=== PATIENT | female | born 1995 | race African-American/Black ===

== ENCOUNTER 2017-11-22 09:18 | Emergency (ER) | payer OTHER ==
--- NOTE | 2017-11-22 11:13 | ER ---
Nurse's Notes [facility] Name: Monae Mccallum Age: 22 yrs Sex: Female : 1995 Arrival Date: 11/22/2017 Time: 09:21 Bed 18 Private MD: Diagnosis: Influenza due to certain identified influenza viruses-Flu B Presentation: 11/22 09:21 Presenting complaint: Patient states: chest congestion, sneezing, upper abd pain x 1 sv day. Pt currently . Transition of care: patient was not received from another setting of care. Onset of symptoms was November 21, 2017. Care prior to arrival: None. 09:21 Method Of Arrival: Ambulatory sv 09:21 Acuity: EMA 3 sv 11:30 Risk Assessment: Do you want to hurt yourself or someone else? Patient reports no bp desire to harm self or others. Initial Sepsis Screen: Does the patient meet any 2 criteria? No. Patient's initial sepsis screen is negative. Does the patient have a suspected source of infection? No. Patient's initial sepsis screen is negative. 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 - Social history:: Smoking status: Patient/guardian denies using tobacco, Patient/guardian denies using alcohol. - Ebola Screening: : No symptoms or risks identified at this time. Screenin:45 Abuse screen: Denies threats or abuse. Denies injuries from another. Nutritional bp screening: No deficits noted. Tuberculosis screening: No symptoms or risk factors identified. Fall Risk None identified. Assessment: 09:30 General: Appears in no apparent distress. comfortable, Behavior is calm, cooperative, bp appropriate for age. Pain: Complains of pain in abdomen. Neuro: Level of Consciousness is awake, alert, obeys commands, Oriented to person, place, time, situation, Appropriate for age. Cardiovascular: Capillary refill < 3 seconds JVD is absent Patient's skin is warm and dry. Respiratory: Airway is patent Respiratory effort is even, unlabored, Respiratory pattern is regular, symmetrical, Breath sounds are clear bilaterally. GI: No signs and/or symptoms were reported involving the gastrointestinal system. : No signs and/or symptoms were reported regarding the genitourinary system. EENT: Reports nasal congestion. Derm: No deficits noted. Musculoskeletal: Circulation, motion, and sensation intact. Range of motion: intact in all extremities. 10:30 Reassessment: ALL CURRENT ORDERS IN PROCESS, VS STABLE. bp 11:29 Reassessment: PT D/C HOME AMBULATORY, DX WITH INFLUENZA. bp Vital Signs: 09:28 BP 136 / 84; Pulse 98; Resp 18; Temp 96.8; Pulse Ox 100% ; Weight 127.01 kg; Height 5 sv ft. 7 in. (170.18 cm); Pain 6/10; 10:28 BP 112 / 65; Pulse 82; Resp 16; Pulse Ox 97% on R/A; dh3 11:29 BP 116 / 76; Pulse 85; Resp 16; Pulse Ox 98% ; bp 09:28 Body Mass Index 43.85 (127.01 kg, 170.18 cm) sv ED Course: 09:21 Patient arrived in ED. as 09:21 Arm band placed on Patient placed in an exam room, on a stretcher. sv 09:27 Triage completed. sv 09:32 Andre Alcala, CARLEEN is Primary Nurse. bp 09:36 Ronald Rizzo PA is PHCP. jr8 09:36 Dani Jean-Baptiste MD is Attending Physician. jr8 10:31 Flu and/or RSV swab sent to lab. 3 10:45 Patient has correct armband on for positive identification. Bed in low position. Call bp light in reach. Side rails up X2. 11:30 No provider procedures requiring assistance completed. Patient did not have IV access bp during this emergency room visit. Administered Medications: No medications were administered Outcome: 11:12 Discharge ordered by . jr8 11:30 Discharged to home ambulatory. bp 11:30 Condition: stable 11:30 Discharge instructions given to patient, Instructed on discharge instructions, follow up and referral plans. medication usage, Demonstrated understanding of instructions, follow-up care, medications, Prescriptions given X 1. 11:31 Patient left the ED. bp Signatures: Yas Farah RN RN Anjali Rizzo as Ronald Rizzo PA PA [facility] Marcelle Arreola dh3 Cari, Andre, RN RN bp
--- NOTE | 2017-11-22 11:13 | EDPHYS ---
Physician Documentation [facility] Name: Monae Mccallum Age: 22 yrs Sex: Female : 1995 Arrival Date: 11/22/2017 Time: 09:21 Bed 18 Private MD: ED Physician Dani Jean-Baptiste HPI: 11/22 10:48 This 22 yrs old Black Female presents to ER via Ambulatory with complaints of jr8 Congestion. 10:48 2 day history of cough, sore throat, sinus congestion, rhinorrhea, chills. Theraflu jr8 over the counter. Approximately 9 weeks . Denies abdominal pain or spotting . Severity of symptoms: At their worst the symptoms were mild in the emergency department the symptoms are unchanged. The patient has not experienced similar symptoms in the past. The patient has not recently seen a physician. 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 - Social history:: Smoking status: Patient/guardian denies using tobacco, Patient/guardian denies using alcohol. - Ebola Screening: : No symptoms or risks identified at this time. ROS: 10:48 Eyes: Negative for injury, pain, redness, and discharge, Neck: Negative for injury, jr8 pain, and swelling, Cardiovascular: Negative for chest pain, palpitations, and edema, Abdomen/GI: Negative for abdominal pain, nausea, vomiting, diarrhea, and constipation, Back: Negative for injury and pain, MS/Extremity: Negative for injury and deformity, Skin: Negative for injury, rash, and discoloration, Neuro: Negative for headache, weakness, numbness, tingling, and seizure. 10:48 ENT: Positive for rhinorrhea, sinus congestion, sore throat. 10:48 Respiratory: Positive for cough, Negative for dyspnea on exertion, shortness of breath, sputum production, wheezing. Exam: 10:48 Eyes: Pupils equal round and reactive to light, extra-ocular motions intact. Lids and jr8 lashes normal. Conjunctiva and sclera are non-icteric and not injected. Cornea within normal limits. Periorbital areas with no swelling, redness, or edema. ENT: Mild enlargement of the turbinates bilaterally. No nasal discharge, no septal abnormalities noted. Tympanic membranes are normal and external auditory canals are clear. Oropharynx with no redness, swelling, or masses, exudates, or evidence of obstruction, uvula midline. Mucous membranes moist. Neck: Trachea midline, no thyromegaly or masses palpated, and no cervical lymphadenopathy. Supple, full range of motion without nuchal rigidity, or vertebral point tenderness. No Meningismus. Cardiovascular: Regular rate and rhythm with a normal S1 and S2. No gallops, murmurs, or rubs. Normal PMI, no JVD. No pulse deficits. Respiratory: Lungs have equal breath sounds bilaterally, clear to auscultation and percussion. No rales, rhonchi or wheezes noted. No increased work of breathing, no retractions or nasal flaring. Abdomen/GI: Soft, non-tender, with normal bowel sounds. No distension or tympany. No guarding or rebound. No evidence of tenderness throughout. Back: No spinal tenderness. No costovertebral tenderness. Full range of motion. Skin: Warm, dry with normal turgor. Normal color with no rashes, no lesions, and no evidence of cellulitis. MS/ Extremity: Pulses equal, no cyanosis. Neurovascular intact. Full, normal range of motion. Neuro: Awake and alert, GCS 15, oriented to person, place, time, and situation. Cranial nerves II-XII grossly intact. Motor strength 5/5 in all extremities. Sensory grossly intact. Cerebellar exam normal. Normal gait. Vital Signs: 09:28 BP 136 / 84; Pulse 98; Resp 18; Temp 96.8; Pulse Ox 100% ; Weight 127.01 kg; Height 5 sv ft. 7 in. (170.18 cm); Pain 6/10; 10:28 BP 112 / 65; Pulse 82; Resp 16; Pulse Ox 97% on R/A; dh3 11:29 BP 116 / 76; Pulse 85; Resp 16; Pulse Ox 98% ; bp 09:28 Body Mass Index 43.85 (127.01 kg, 170.18 cm) sv MDM: 09:36 Patient medically screened. [facility] 10:50 Data reviewed: vital signs, nurses notes, and as a result, I will discharge patient. jr8 Data interpreted: Pulse oximetry: on room air is 97 %. Interpretation: normal. Counseling: I had a detailed discussion with the patient and/or guardian regarding: the historical points, exam findings, and any diagnostic results supporting the discharge/admit diagnosis, the need for outpatient follow up, a family practitioner, to return to the emergency department if symptoms worsen or persist or if there are any questions or concerns that arise at home. ED course: Discussed with patient that this is allergic vs viral process. No bacterial process identified. Claritin, flonase OTC for now. Tylenol for aches and pains. 11/22 10:15 Order name: Influenza Screen (a \T\ B); Complete Time: 11:11 jr8 Administered Medications: No medications were administered Disposition: 15:31 Co-signature as Attending Physician, Dani Jean-Baptiste MD I agree with the assessment and jarrod plan of care. Disposition: 11/22/17 11:12 Discharged to Home. Impression: Influenza due to certain identified influenza viruses - Flu B. - Condition is Stable. - Discharge Instructions: Influenza, Adult. - Prescriptions for Tamiflu 75 mg Oral Capsule - take 1 capsule by ORAL route every 12 hours for 5 days; 10 capsule. - Medication Reconciliation Form, Thank You Letter, Antibiotic Education, Prescription Opioid Use, Work release form form. - Follow up: Private Physician; When: 2 - 3 days; Reason: Recheck today's complaints, Continuance of care, Re-evaluation by your physician. - Problem is new. - Symptoms have improved. Signatures: Dispatcher [employer] Yas Prakash RN RN sv Anderson, Corey, MD MD cha Roszak, Josh, PA PA jr8 Andre Alcala RN RN bp Corrections: (The following items were deleted from the chart) 11:31 11:12 11/22/2017 11:12 Discharged to Home. Impression: Influenza due to certain bp identified influenza viruses - Flu B. Condition is Stable. Forms are Medication Reconciliation Form, Thank You Letter, Antibiotic Education, Prescription Opioid Use. Follow up: Private Physician; When: 2 - 3 days; Reason: Recheck today's complaints, Continuance of care, Re-evaluation by your physician. Problem is new. Symptoms have improved. jr8
[2017-11-23 14:36] VITALS: BP 116/76; TEMP 96.8; O2SAT 98
== END 2017-11-22 11:31 | disposition home or self-care (01) ==
LOC: ER 09:18
DX: J10.1 Influenza due to other identified influenza virus with other respiratory manifestations (principal); O16.1 Unspecified maternal hypertension, first trimester; Z3A.09 9 weeks gestation of pregnancy
CPT/HCPCS: 87804; 99283

== ENCOUNTER 2018-08-07 07:44 | Emergency (ER) | payer OTHER ==
--- OUTSIDE RECORDS SUMMARY | 2018-08-07 07:47 | XMS REPORT ---
:1995 Author Organization [facility] Address [address] [place] [address] [address] [place] [address] Care Team Providers Name Role Phone Unavailable Unavailable Unavailable Problems This patient has no known problems. Allergies, Adverse Reactions, Alerts This patient has no known allergies or adverse reactions. Medications This patient has no known medications.
[2018-08-07 08:29] LABS: Absolute Lymphocytes (CBC) 1.8 K/uL (0.7-4.9); Basophils % 0.5 % (0-1.3); Eosinophils % 1.8 % (0-4.4); Hematocrit 36.4 % (36.0-45.0); Lymphocytes % 32.5 % (15.3-44.8); Monocytes % 8.5 % (3.3-12.3); RBC Red Blood Cell Count 4.84 M/uL (3.86-4.86)
[2018-08-07 08:37] LABS: BUN Blood Urea Nitrogen 8 mg/dL (7-18); Bicarbonate 29 mmol/L (21-32); Glucose Level 95 mg/dL (74-106); HCG, Quantitative 699 mIU/mL (1-3); Potassium 4.2 mmol/L (3.5-5.1); Sodium Level 138 mmol/L (136-145)
[2018-08-07 08:53] LABS: Urine Blood NEGATIVE (NEG); Urine Glucose NEGATIVE (NEG); Urine Protein NEGATIVE (NEG); Urine Specific Gravity 1.015 (1.005-1.030); Urine pH 6.5 (5.0-7.0)
--- NOTE | 2018-08-07 09:25 | ER ---
Nurse's Notes [facility] Name: Monae Mccallum Age: 23 yrs Sex: Female : 1995 Arrival Date: 08/07/2018 Time: 07:47 Bed 20 Private MD: Diagnosis: Threatened Presentation: 08/07 07:58 Presenting complaint: Patient states: that since this am she has been having lower fc pelvic cramping. States that she noted blood on the paper when she wiped. Pt states she is 5 weeks . Transition of care: patient was not received from another setting of care. Onset of symptoms was August 07, 2018. Risk Assessment: Do you want to hurt yourself or someone else? Patient reports no desire to harm self or others. Initial Sepsis Screen: Does the patient meet any 2 criteria? No. Patient's initial sepsis screen is negative. Does the patient have a suspected source of infection? No. Patient's initial sepsis screen is negative. Care prior to arrival: None. 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 - Social history:: Smoking status: Patient/guardian denies using tobacco, Patient/guardian denies using alcohol, street drugs. - Ebola Screening: : Patient negative for fever greater than or equal to 101.5 degrees Fahrenheit, and additional compatible Ebola Virus Disease symptoms Patient denies exposure to infectious person Patient denies travel to an Ebola-affected area in the 21 days before illness onset. Screenin:58 Abuse screen: Denies threats or abuse. Nutritional screening: No deficits noted. fc Tuberculosis screening: No symptoms or risk factors identified. Fall Risk None identified. Assessment: 07:55 General: Appears in no apparent distress. comfortable, Behavior is calm, cooperative, rb1 Denies fever. Pain: Complains of pain in suprapubic area Quality of pain is described as crampy. Neuro: Level of Consciousness is awake, alert, obeys commands, Oriented to person, place, time, situation. Cardiovascular: Capillary refill < 3 seconds is brisk in bilateral fingers. Respiratory: Airway is patent Respiratory effort is even, unlabored, Respiratory pattern is regular, symmetrical. GI: No signs and/or symptoms were reported involving the gastrointestinal system. : Parent/caregiver report the patient having cramping pink colored spotting. Derm: Skin is dry, Skin is normal, Skin temperature is warm. 09:05 Reassessment: ultrasound at bedside. em 09:28 Reassessment: pending RhoGAM from blood bank. em 10:38 Reassessment: Patient appears in no apparent distress at this time. Patient and/or em family updated on plan of care and expected duration. Pain level reassessed. Patient is alert, oriented x 3, equal unlabored respirations, skin warm/dry/pink. Vital Signs: 07:58 BP 148 / 90; Pulse 79; Resp 18; Temp 97.8(O); Pulse Ox 98% on R/A; Weight 132.9 kg (R); fc Height 5 ft. 7 in. (170.18 cm) (R); Pain 6/10; 09:25 BP 138 / 87; Pulse 81; Resp 20; Pulse Ox 99% on R/A; em 07:58 Body Mass Index 45.89 (132.90 kg, 170.18 cm) ED Course: 07:47 Patient arrived in ED. as 07:48 [facility]ara Irizarry [facility]-C [facility]. kb 07:48 Jaspreet Monet MD is Attending Physician. kb 07:55 Pulse ox on. NIBP on. rb1 07:58 Arm band placed on Patient placed in an exam room, on a stretcher. fc 07:58 Patient has correct armband on for positive identification. Bed in low position. Call light in reach. 08:09 Triage completed. fc 08:12 Malena Hess, RN is Primary Nurse. rb1 08:13 Initial lab(s) drawn, by ak, sent to lab. Inserted saline lock: 20 gauge in right ms antecubital area, using aseptic technique. Blood collected. 08:30 Urine collected: clean catch specimen, clear. ms 09:17 Ultrasound completed. Patient tolerated well. Notified BELT SPLICER/PA tara. sg3 09:48 Transvaginal Ob In Process Unspecified. EDMS 10:37 No provider procedures requiring assistance completed. IV discontinued, intact, em bleeding controlled, No redness/swelling at site. Pressure dressing applied. Administered Medications: 10:24 Drug: RhoGAM (Human) 300 mcg {Note: Pt requested medication be given in deltoid.} Route: IM; Site: right deltoid; 10:39 Follow up: Response: No adverse reaction em Outcome: :25 Discharge ordered by . kb 10:37 Discharged to home ambulatory. em 10:37 Condition: good 10:37 Discharge instructions given to patient, Instructed on discharge instructions, follow up and referral plans. Demonstrated understanding of instructions, follow-up care. 10:39 Patient left the ED. em Signatures: Dispatcher [employer] EDMS Tara Irizarry, INSIGHT LEADER-C INSIGHT LEADER-Ckb Lluvia Maier RN RN Fred Henderson, BUILDING CONSTRUCTION SUPERVISOR BUILDING CONSTRUCTION SUPERVISOR em Anjali Rizzo Maria ms Smirch, Shelby, RN RN Malena Hess RN RN [facility] Francie Eaton sg3
--- NOTE | 2018-08-07 09:25 | EDPHYS ---
Physician Documentation [facility] Name: Monae Mccallum Age: 23 yrs Sex: Female : 1995 Arrival Date: 08/07/2018 Time: 07:47 Bed 20 Private MD: ED Physician Jaspreet Monet HPI: 08/07 08:50 This 23 yrs old Black Female presents to ER via Ambulatory with complaints of Vaginal kb Bleeding, + Preg <12wks. 08:50 The patient presents to the emergency department with abdominal pain, of the suprapubic kb area, described as crampy, vaginal bleeding, described as spotting. The estimated gestational age is 5 weeks. course: care: at a clinic, Leakage of Fluid: none appreciated, Ultrasound: the patient has not had an ultrasound, Risk/complications: no obvious risks or complications are appreciated. Previous pregnancies: in previous pregnancies patient has had. Associated signs and symptoms: Pertinent positives: abdominal pain, vaginal bleeding, Pertinent negatives: chest pain, diarrhea, dysuria, fever, frequency, nausea, ruptured membranes, seizure, shortness of breath, vaginal discharge, vomiting. The patient has not experienced similar symptoms in the past. The patient has not recently seen a physician. Pt reports abd cramping and vaginal spotting that started this morning. States bleeding only when she wiped after using the restroom. 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 - Social history:: Smoking status: Patient/guardian denies using tobacco, Patient/guardian denies using alcohol, street drugs. - Ebola Screening: : Patient negative for fever greater than or equal to 101.5 degrees Fahrenheit, and additional compatible Ebola Virus Disease symptoms Patient denies exposure to infectious person Patient denies travel to an Ebola-affected area in the 21 days before illness onset. ROS: 08:49 Constitutional: Negative for fever, chills, and weight loss, ENT: Negative for injury, kb pain, and discharge, Neck: Negative for injury, pain, and swelling, Cardiovascular: Negative for chest pain, palpitations, and edema, Respiratory: Negative for shortness of breath, cough, wheezing, and pleuritic chest pain, Back: Negative for injury and pain, MS/Extremity: Negative for injury and deformity, Skin: Negative for injury, rash, and discoloration, Neuro: Negative for headache, weakness, numbness, tingling, and seizure. 08:49 Abdomen/GI: Positive for abdominal cramps, Negative for abdominal pain, nausea, vomiting, and diarrhea. 08:49 : Positive for vaginal bleeding. Exam: 08:49 Constitutional: This is a well developed, well nourished patient who is awake, alert, kb and in no acute distress. Head/Face: Normocephalic, atraumatic. Chest/axilla: Normal chest wall appearance and motion. Nontender with no deformity. No lesions are appreciated. Cardiovascular: Regular rate and rhythm with a normal S1 and S2. No gallops, murmurs, or rubs. Normal PMI, no JVD. No pulse deficits. Respiratory: Lungs have equal breath sounds bilaterally, clear to auscultation and percussion. No rales, rhonchi or wheezes noted. No increased work of breathing, no retractions or nasal flaring. Abdomen/GI: Soft, non-tender, with normal bowel sounds. No distension or tympany. No guarding or rebound. No evidence of tenderness throughout. Back: No spinal tenderness. No costovertebral tenderness. Full range of motion. Skin: Warm, dry with normal turgor. Normal color with no rashes, no lesions, and no evidence of cellulitis. MS/ Extremity: Pulses equal, no cyanosis. Neurovascular intact. Full, normal range of motion. Neuro: Awake and alert, GCS 15, oriented to person, place, time, and situation. Cranial nerves II-XII grossly intact. Motor strength 5/5 in all extremities. Sensory grossly intact. Cerebellar exam normal. Normal gait. Vital Signs: 07:58 BP 148 / 90; Pulse 79; Resp 18; Temp 97.8(O); Pulse Ox 98% on R/A; Weight 132.9 kg (R); fc Height 5 ft. 7 in. (170.18 cm) (R); Pain 6/10; 09:25 BP 138 / 87; Pulse 81; Resp 20; Pulse Ox 99% on R/A; em 07:58 Body Mass Index 45.89 (132.90 kg, 170.18 cm) fc MDM: 07:57 Patient medically screened. kb 08:49 Data reviewed: vital signs, nurses notes. Data interpreted: Pulse oximetry: on room air kb is 98 %. Interpretation: normal. 09:24 Counseling: I had a detailed discussion with the patient and/or guardian regarding: the kb historical points, exam findings, and any diagnostic results supporting the discharge/admit diagnosis, lab results, radiology results, the need for outpatient follow up, an OB/Gyne specialist, to return to the emergency department if symptoms worsen or persist or if there are any questions or concerns that arise at home. 08/07 07:57 Order name: Quantitative Hcg 08/07 07:57 Order name: Abo/rh Typing 08/07 07:57 Order name: Basic Metabolic Panel; Complete Time: 08:38 kb 08/07 07:57 Order name: CBC with Diff; Complete Time: 08:53 kb 08/07 07:58 Order name: HCG, Quantitative; Complete Time: 08:38 EDOH 08/07 08:26 Order name: Urine Microscopic Only; Complete Time: 10:17 eb 08/07 08:30 Order name: Urine Dipstick--Ancillary (enter results); Complete Time: 08:57 eb 08/07 08:30 Order name: Urine --Ancillary (enter results); Complete Time: 08:57 eb 08/07 08:39 Order name: US Transvaginal Ob 08/07 09:08 Order name: Rh Typing [facility] 08/07 09:09 Order name: Antibody Screen [facility] 08/07 09:09 Order name: Fetalscreen [facility] 08/07 09:09 Order name: Cord Rh type [facility] 08/07 09:09 Order name: Rhogam [facility] 08/07 07:57 Order name: Urine Test (obtain specimen); Complete Time: 08:29 kb 08/07 07:57 Order name: IV Saline Lock; Complete Time: 08:13 kb 08/07 07:57 Order name: Labs collected and sent; Complete Time: 08:13 kb 08/07 07:57 Order name: NPO; Complete Time: 08:04 kb 08/07 07:57 Order name: Urine Dipstick-Ancillary (obtain specimen); Complete Time: 08:29 kb Administered Medications: 10:24 Drug: RhoGAM (Human) 300 mcg {Note: Pt requested medication be given in deltoid.} ss Route: IM; Site: right deltoid; 10:39 Follow up: Response: No adverse reaction em Disposition: 11:10 Co-signature as Attending Physician, Jaspreet Monet MD. rn Disposition: 08/07/18 09:25 Discharged to Home. Impression: Threatened . - Condition is Stable. - Discharge Instructions: Threatened Miscarriage, [id number]. - Medication Reconciliation Form, Thank You Letter, Antibiotic Education, Prescription Opioid Use form. - Follow up: Emergency Department; When: As needed; Reason: Worsening of condition. Follow up: Private Physician; When: 2 - 3 days; Reason: Recheck today's complaints, Continuance of care, Re-evaluation by your physician. - Notes: Have repeat quantitative hcg in 48 hours Signatures: Dispatcher [employer] EDTara Acosta, FE CARDIOVASCULAR SURGICAL TECH-Lluvia Bhagat, RN RN fc Fred Henderson, METAL BOX MAKER METAL BOX MAKER Jaspreet Mayo MD MD rn Smirch, Shelby, RN RN ss Corrections: (The following items were deleted from the chart) 10:39 09:25 08/07/2018 09:25 Discharged to Home. Impression: Threatened . Condition em is Stable. Forms are Medication Reconciliation Form, Thank You Letter, Antibiotic Education, Prescription Opioid Use. Follow up: Emergency Department; When: As needed; Reason: Worsening of condition. Follow up: Private Physician; When: 2 - 3 days; Reason: Recheck today's complaints, Continuance of care, Re-evaluation by your physician. kb
[2018-08-07 10:15] LABS: Urine Bacteria <20 /HPF (<20); Urine Culture Reflex Order NOT NEEDED; Urine RBC NONE SEEN /HPF (NONE SEEN)
--- NOTE | 2018-08-07 11:41 | RAD REPORT ---
EXAM DESCRIPTION: US - Transvaginal OB - 08/07/2018 9:48 am CLINICAL HISTORY: Abd cramping, ;Vaginal bleeding COMPARISON: <Comparisons> FINDINGS: No IUP is identified. There is a trace amount of fluid in the fundal endometrium. Endometr ial thickness measures 8 mm. The uterus measures 8.3 x 5.1 x 4.5 cm. The maternal adnexa and ovaries are within normal limits. Normal Doppler blood flow was demonstrated to both ovaries. IMPRESSION: No IUP findings are seen. In the setting of an elevated HCG, this would indicate pregnan cy of unknown location. Close interval followup pelvic sonography and serial HCG levels is recommende dMatt
== END 2018-08-07 10:39 | disposition home or self-care (01) ==
LOC: ER 07:44
DX: O20.0 Threatened abortion (principal); Z3A.01 Less than 8 weeks gestation of pregnancy; I10 Essential (primary) hypertension
CPT/HCPCS: 36415; 76817; 80048; 81003; 81015; 81025; 84702; 85025; 86850; 86900; 86901; 96372; 99284; J2790

== ENCOUNTER 2021-06-17 08:30 | Emergency (ER) | payer OTHER ==
--- OUTSIDE RECORDS SUMMARY | 2021-06-17 08:35 | XMS REPORT | Continuity of Care Document ---
:1995 Author Organization [facility] t Address [address] [place] [address] Care Team Providers Name Role Phone Keke STILES Primary Care Physician Unavailable Keke STILES Attending Clinician Unavailable Sayda DURANT Attending Clinician Unavailable Brayden RICH Attending Clinician Unknown Attending Clinician Unavailable BRAYDEN Attending Clinician Unavailable Only, Db Test Attending Clinician Unavailable Go MARRUFO, R Attending Clinician Frank Peña DO Attending Clinician Visit, Nurse Attending Clinician Unavailable Emerson MORALES, C Attending Clinician Keyur RICH Attending Clinician Risk Attending Clinician Unavailable Enid MORALES, L Attending Clinician Doctor Unassigned, Name Attending Clinician Unavailable Matthew DURANT, S Attending Clinician Unavailable Tong MOSQUEDAP, N Attending Clinician Faculty, [facility] Attending Clinician Unavailable Winter Toth MD Attending Clinician Keyur RICH Admitting Clinician Payers Payer Name Policy Type Policy Number Effective Date Expiration Date [facility] [id number] [address] [facility] MEDICAID 00:00:00 Problems Condition Condition Condition Status Onset Resolution Last Treating Co mments Source Name Details Category Date Date Treatment Clinician Date Encounter Encounter Disease Active NPI :183 for for 618 [id number] surveillan surveillan 00:00: ce of ce of 00 contracept contracept william, william, unspecifie unspecifie d d contracept contracept dina dina Elevated Elevated Disease Active NPI:1 83 blood blood 18 [id number] pressure pressure 00:00: reading reading 00 without without diagnosis diagnosis of of hypertensi hypertensi on on Class 3 Class 3 Disease Active NPI:183 severe severe 07-26 1886658 obesity obesity 00:00: with body with body 00 mass index mass index (BMI) of (BMI) of 40.0 to 40.0 to 44.9 in 44.9 in adult, adult, unspecifie unspecifie d obesity d obesity type, type, unspecifie unspecifie d whether d whether serious serious comorbidit comorbidit y present y present Disease Active N PI:183 care and care and 04-13 752022 1 examinatio examinatio 00:00: n n 00 immediatel immediatel y after y after delivery delivery 37 weeks 37 weeks Disease Active NPI:1 83 gestation gestation 2- 1318 781 of of 00:00: 00 Bacterial Bacterial Disease Active NPI :183 vaginosis vaginosis 2 1318 781 in in 00:00: 00 Group B Group B Disease Active NPI:183 streptococ streptococ [phone] [id number] luis manuel luis manuel 00:00: infection infection 00 during during History of History of Disease Active N PI:183 bilateral bilateral 02-15 1318 781 tubal tubal 00:00: ligation ligation 00 Spotting Spotting Disease Active NPI:1 83 affecting affecting 02-15 1318 781 00:00: in third in third 00 trimester trimester Multiparit Multiparit Disease Active N PI:183 y y 02-13 6236192 00:00: 00 H/O heart H/O heart Disease Active 2018-02 NPI :183 surgery surgery 15 0916148 00:00: 00 Need for Need for Disease Active 2018-02 NPI:1 83 prophylact prophylact 1-15 13 69058 ic ic 00:00: vaccinatio vaccinatio 00 n against n against rubella rubella alone alone BMI BMI Disease Active 2018-02 NPI:183 40.0-44.9, 40.0-44.9, 02-22 13 26651 adult adult 00:00: 00 Gastroesop Gastroesop Disease Active 2018-02 N PI:183 hageal hageal 02-22 2382993 reflux reflux 00:00: disease disease 00 without without esophagiti esophagiti s s History of History of Disease Active 2018-02 N PI:183 repair of repair of 02-22 1318 781 congenital congenital 00:00: atrial atrial 00 septal septal defect defect (ASD) (ASD) Chlamydia Chlamydia Disease Active 2018-02 NPI :183 0-14 3214299 00:00: 00 Supervisio Supervisio Disease Active N PI:183 n of high n of high 08-03 1318 781 risk risk 00:00: 00 in third in third trimester trimester Three Three Disease Active NPI:183 previous previous 08-03 281548 1 spontaneou spontaneou 00:00: s s 00 abortions abortions (SAB) (SAB) affecting affecting care of care of mother, mother, antepartum antepartum , first , first trimester trimester History of History of Disease Active N PI:183 gestationa gestationa 08-03 13 88334 l l 00:00: hypertensi hypertensi 00 on on Multiparit Multiparit Disease Active N PI:183 y y 08-03 9987921 00:00: 00 History of History of Disease Active N PI:183 hypothyroi hypothyroi 08-03 13 31482 dism dism 00:00: 00 Pelvic Pelvic Disease Active NPI:183 cramping cramping 08-03 674267 1 in in 00:00: antepartum antepartum 00 period period Rubella Rubella Disease Active 2017-02 Overview: NPI: 183 non-immune non-immune 0-03 Formattin 7855548 status, status, 00:00: g of this antepartum antepartum 00 note might be different from the original. Address in PP Cramping Cramping Disease Active 2017-02 NPI:1 83 affecting affecting 1318 781 , , 00:00: antepartum antepartum 00 Morbid Morbid Disease Active NPI:183 obesity obesity 06-26 8050555 00:00: 00 Well woman Well woman Disease Active N PI:183 exam (no exam (no 06-26 688292 1 gynecologi gynecologi 00:00: luis manuel exam) luis manuel exam) 00 Sickle Sickle Disease Active NPI:183 cell trait cell trait 2-18 13 63325 00:00: 00 Rh Rh Disease Active Overview: NPI:18 3 negative negative 10-10 Formattin 131 8781 status status 00:00: g of this during during 00 note might be in first in first different trimester trimester from the original. 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 Currently , no med. No sx's, except intermitt ent chest pain. No orthopnea nor dysopnea Pre-eclamp Pre-eclamp Disease Active N PI:183 ben ben 10-08 5684350 00:00: 00 Allergies, Adverse Reactions, Alerts Allergy Allergy Status Severity Reaction(s) Onset Inactive Treating Comm ents Source Name Type Date Date Clinician NO KNOWN Drug Active NPI:183 ALLERGIE Class 8219266 S Social History Social Habit Start Date Stop Date Quantity Comments Source ASSERTION 2018-07-21 00:00:00 Exposure to Not sure NPI:[id number] 1 SARS-CoV-2 (event) Alcohol intake 2021-01-07 2021-01-07 0 /d NPI:[id number] 3447 00:00:00 00:00:00 Education 2019-03-16 2019-03-16 21 00:00:00 00:00:00 Tobacco use and 2014-03-13 2014-03-13 Never used NPI:91164 44284 exposure 00:00:00 00:00:00 [birth year] At [birth year] NPI:72944 89237 00:00:00 00:00:00 Smoking Status Start Date Stop Date Source Never smoker Medications Ordered Filled Start Stop Current Ordering Indication Dosage Frequency Signature Comments Components Source Medication Medication Date Date Medication? Clinician (SIG) Name Name albuterol 2020-02- No [id number] 2{puff} NPI:183 (VENTOLIN) 03-09 [id number] inhaler 2 22:15: 21:05 Puff 00 :00 albuterol 2020-02- No [id number] 2{puff} 2 Puff, NPI:183 (VENTOLIN) 03-09 Inhalation 13 54009 inhaler 2 22:15: 21:05 , ONCE, 1 Puff 00 :00 dose, On Wed01/07/21 at 1615, Routine benzonatate 2020-02 Yes [id number] 200mg Take 2 NPI:183 100 mg 1-30 capsules [id number] capsule 00:00: by mouth 2 00 (two) times daily as needed for Cough. bromphenira 2020-02 Yes [id number] 5mL Take 5 mL NPI:183 mine-pseudo 30 by mouth 4 13 29404 ephedrine-D 00:00: (four) M (BROMFED 00 times DM) 2-30-10 daily as mg/5 mL needed for syrup Congestion /Allergies . azelastine 2020-02 Yes [id number] 1{spray Use 1 NPI:183 137 mcg 1-30 } [place] in 3817559 (0.1 %) 00:00: each nasal spray 00 nostril 2 (two) times daily. Use in each nostril as directed guaiFENesin 2020-02 Yes [id number] 400mg Take 1 NPI:183 400 mg 1-30 tablet by [id number] tablet 00:00: mouth 00 every 4 (four) hours as needed for Cough. albuterol 2020-02 Yes [id number] 2{puff} Inhale 2 NPI:183 90 1-30 Puffs [id number] mcg/actuati 00:00: every 6 on inhaler 00 (six) hours as needed for Wheezing or Shortness of Breath. benzonatate 2020-02 Yes [id number] 200mg Take 2 NPI:183 100 mg 1-30 capsules [id number] capsule 00:00: by mouth 2 00 (two) times daily as needed for Cough. bromphenira 2020-02 Yes [id number] 5mL Take 5 mL NPI:183 mine-pseudo 1-30 by mouth 4 13 12705 ephedrine-D 00:00: (four) M (BROMFED 00 times DM) 2-30-10 daily as mg/5 mL needed for syrup Congestion /Allergies . azelastine 2020-02 Yes [id number] 1{spray Use 1 NPI:183 137 mcg 1-30 } [place] in 2053277 (0.1 %) 00:00: each nasal spray 00 nostril 2 (two) times daily. Use in each nostril as directed guaiFENesin 2020-02 Yes [id number] 400mg Take 1 NPI:183 400 mg 1-30 tablet by 7558630 tablet 00:00: mouth 00 every 4 (four) hours as needed for Cough. albuterol 2020-02 Yes [id number] 2{puff} Inhale 2 NPI:183 90 1-30 Puffs [id number] mcg/actuati 00:00: every 6 on inhaler 00 (six) hours as needed for Wheezing or Shortness of Breath. No known No NPI:183 medications 7-21 [id number] 08:36: 57 cephALEXin 0 2020- No [id number] 500mg Take 1 NPI:183 (KEFLEX) 2-21 03-03 capsule by 1318 781 500 mg 00:00: 05:59 mouth 4 capsule 00 :00 (four) times daily for 10 days. ascorbic Yes 500mg 500 mg, NPI:1 83 acid 2-16 Oral, [id number] (vitamin C) 15:00: DAILY, (VITAMIN C) 00 First dose tablet 500 on Sun mg 03/26/19 at 0900, Until Discontinu ed, Routine foLIC acid 2020-0 Yes 1mg 1 mg, NPI:18 3 (FOLATE) 2-16 Oral, [id number] tablet 1 mg 15:00: DAILY, 00 First dose on 03/26/19 at 0900, Until Discontinu ed, Routine ascorbic 2020-0 Yes [id number] 500mg Take 1 N PI:183 acid, 2-16 tablet by 8831182 vitamin C, 00:00: mouth 500 mg 00 daily. tablet foLIC acid 2020-0 Yes [id number] 1mg Take 1 NPI:183 1 mg tablet 2-16 tablet by 131 8781 00:00: mouth 00 daily. ascorbic 2020-0 Yes [id number] 500mg Take 1 N PI:183 acid, 2-16 tablet by 3551123 vitamin C, 00:00: mouth 500 mg 00 daily. tablet foLIC acid 2020-0 Yes [id number] 1mg Take 1 NPI:183 1 mg tablet 2-16 tablet by 131 8781 00:00: mouth 00 daily. ascorbic 2020-0 Yes [id number] 500mg Take 1 N PI:183 acid, 2-16 tablet by 2383299 vitamin C, 00:00: mouth 500 mg 00 daily. tablet foLIC acid 2020-0 Yes [id number] 1mg Take 1 NPI:183 1 mg tablet 2-16 tablet by 131 8781 00:00: mouth 00 daily. ascorbic 2020-0 Yes [id number] 500mg Take 1 N PI:183 acid, 2-16 tablet by 7122885 vitamin C, 00:00: mouth 500 mg 00 daily. tablet foLIC acid 2020-0 Yes [id number] 1mg Take 1 NPI:183 1 mg tablet 2-16 tablet by 131 8781 00:00: mouth 00 daily. ascorbic 2020-0 2020- No [id number] 500mg Take 1 NPI:183 acid, 2-16 06-18 tablet by [id number] vitamin C, 00:00: 00:00 mouth 500 mg 00 :00 daily. tablet foLIC acid 2020-0 2020- No [id number] 1mg Take 1 NPI:183 1 mg tablet 2-16 06-18 tablet by 13 08228 00:00: 00:00 mouth 00 :00 daily. ascorbic 2020-0 2020- No [id number] 500mg Take 1 NPI:183 acid, 2-16 -18 tablet by 0934884 vitamin C, 00:00: 00:00 mouth 500 mg 00 :00 daily. tablet foLIC acid 2019-0 2020- No [id number] 1mg Take 1 NPI:183 1 mg tablet 2-16 -18 tablet by 13 30793 00:00: 00:00 mouth 00 :00 daily. ferrous 2020-0 Yes 324mg 324 mg, NPI:18 3 gluconate 2-15 Oral, TID 80485 81 tablet 324 18:00: MEALS, mg 00 First dose on 03/25/19 at 1200, Until Discontinu ed, Routine lactated 2019-0 2020- No 500mL at 999 NPI:1 83 ringers IV 2-15 02-15 mL/hr, 500 13 77173 infusion 14:45: 13:45 mL, 500 mL 00 :00 Intravenou s, ONCE, 1 dose, 03/25/19 at 0845, Routine 2020-0 Yes [id number] 1{tbl} Take 1 NPI:183 vitamin 2-15 tablet by 8857192 w/FA tablet 00:00: mouth 00 daily. docusate 2020-0 Yes [id number] 240mg Take 1 N PI:183 calcium 240 2-15 capsule by 13 25039 mg capsule 00:00: mouth once 00 daily as needed for Constipati on. ibuprofen 2020-0 Yes [id number] 600mg Take 1 NPI:183 600 mg 2-15 tablet by [id number] tablet 00:00: mouth 00 every 6 (six) hours as needed (Pain). Take with food or milk. ferrous 2020-0 Yes [id number] 325mg Take 1 ETIOLOGIST I:183 sulfate 325 2-15 tablet by 131 8781 mg (65 mg 00:00: mouth 2 iron) 00 (two) tablet times daily. ibuprofen 2020-0 Yes 600mg 600 mg, NPI: 183 (IBU) 2-15 Oral, Q6H, [id number] tablet 600 00:00: First dose mg 00 on 03/24/19 at 1800, Until Discontinu ed, Routine 2020-0 Yes [id number] 1{tbl} Take 1 NPI:183 vitamin 2-15 tablet by 7985114 w/FA tablet 00:00: mouth 00 daily. docusate 2020-0 Yes [id number] 240mg Take 1 N PI:183 calcium 240 2-15 capsule by 13 88040 mg capsule 00:00: mouth once 00 daily as needed for Constipati on. ibuprofen 2020-0 Yes [id number] 600mg Take 1 NPI:183 600 mg 2-15 tablet by 5857719 tablet 00:00: mouth 00 every 6 (six) hours as needed (Pain). Take with food or milk. ferrous 2020-0 Yes [id number] 325mg Take 1 ETIOLOGIST I:183 sulfate 325 2-15 tablet by 131 8781 mg (65 mg 00:00: mouth 2 iron) 00 (two) tablet times daily. 2020-0 Yes [id number] 1{tbl} Take 1 NPI:183 vitamin 2-15 tablet by 2195798 w/FA tablet 00:00: mouth 00 daily. docusate 2020-0 Yes [id number] 240mg Take 1 N PI:183 calcium 240 2-15 capsule by 13 77274 mg capsule 00:00: mouth once 00 daily as needed for Constipati on. ibuprofen 2020-0 Yes [id number] 600mg Take 1 NPI:183 600 mg 2-15 tablet by 4387709 tablet 00:00: mouth 00 every 6 (six) hours as needed (Pain). Take with food or milk. ferrous 2020-0 Yes [id number] 325mg Take 1 ETIOLOGIST I:183 sulfate 325 2-15 tablet by 131 8781 mg (65 mg 00:00: mouth 2 iron) 00 (two) tablet times daily. 2020-0 Yes [id number] 1{tbl} Take 1 NPI:183 vitamin 2-15 tablet by 3778793 w/FA tablet 00:00: mouth 00 daily. docusate 2020-0 Yes [id number] 240mg Take 1 N PI:183 calcium 240 2-15 capsule by 13 19485 mg capsule 00:00: mouth once 00 daily as needed for Constipati on. ibuprofen 2020-0 Yes [id number] 600mg Take 1 NPI:183 600 mg 2-15 tablet by 0394048 tablet 00:00: mouth 00 every 6 (six) hours as needed (Pain). Take with food or milk. ferrous 2020-0 Yes [id number] 325mg Take 1 ETIOLOGIST I:183 sulfate 325 2-15 tablet by 131 8781 mg (65 mg 00:00: mouth 2 iron) 00 (two) tablet times daily. 2020-0 2020- No [id number] 1{tbl} Take 1 NPI:183 vitamin 2-15 06-18 tablet by 616453 1 w/FA tablet 00:00: 00:00 mouth 00 :00 daily. docusate 2019- No [id number] 240mg Take 1 NPI:183 calcium 240 2-15 06-18 capsule by 1 981822 mg capsule 00:00: 00:00 mouth once 00 :00 daily as needed for Constipati on. ibuprofen 2019- No [id number] 600mg Take 1 NPI:183 600 mg 2-15 06-18 tablet by 3809546 tablet 00:00: 00:00 mouth 00 :00 every 6 (six) hours as needed (Pain). Take with food or milk. ferrous 2019- No [id number] 325mg Take 1 N PI:183 sulfate 325 2-15 -18 tablet by 13 92882 mg (65 mg 00:00: 00:00 mouth 2 iron) 00 :00 (two) tablet times daily. 2019- No [id number] 1{tbl} Take 1 NPI:183 vitamin 2-15 06-18 tablet by 801177 1 w/FA tablet 00:00: 00:00 mouth 00 :00 daily. docusate 2019- No [id number] 240mg Take 1 NPI:183 calcium 240 2-15 06-18 capsule by 1 849381 mg capsule 00:00: 00:00 mouth once 00 :00 daily as needed for Constipati on. ibuprofen 2019- No [id number] 600mg Take 1 NPI:183 600 mg 2-15 06-18 tablet by 3570075 tablet 00:00: 00:00 mouth 00 :00 every 6 (six) hours as needed (Pain). Take with food or milk. ferrous 2019- No [id number] 325mg Take 1 N PI:183 sulfate 325 2-15 -18 tablet by 13 17313 mg (65 mg 00:00: 00:00 mouth 2 iron) 00 :00 (two) tablet times daily. HYDROcodone 2019- No [id number] 1{tbl} Take 1 NPI:183 -acetaminop 2-15 02-23 tablet by 13 95045 hen 5-325 00:00: 05:59 mouth mg tablet 00 :00 every 6 (six) hours as needed (Pain scale above 4) for up to 7 days. Do not exceed 3 grams of acetaminop hen in 24 hours. HYDROcodone 2020-0 2020- No [id number] 1{tbl} Take 1 NPI:183 -acetaminop 2-15 04-02 tablet by 13 59956 hen 5-325 00:00: 05:59 mouth mg tablet 00 :00 every 6 (six) hours as needed (Pain scale above 4) for up to 7 days. Do not exceed 3 grams of acetaminop hen in 24 hours. ferrous 2020-0 2020- No [id number] 325mg Take 1 N PI:183 sulfate 325 2-15 - tablet by 13 46420 mg (65 mg 00:00: 00:00 mouth 2 iron) 00 :00 (two) tablet times daily. human 2020-0 Yes .5mL 0.5 mL, NPI:183 papillomav 2-14 Intramuscu 131 8781 vac,9-vanessa(P 22:36: lar, F) 16 ONCE-PRIOR (GARDASIL-9 TO ) syringe DISCHARGE, 0.5 mL 1 dose, Starting Wed03/24/19 at 1636, Until Discontinu ed, Routine, Give vaccine prior to discharge HYDROcodone 2020-0 Yes 2{tbl} 2 tablet, NPI:183 -acetaminop 2-14 Oral, [id number] hen (NORCO 22:36: Q6HPRN, 5) 5-325 mg 16 Starting tablet 2 Fri tablet 03/24/19 at 1636, Until Discontinu ed, Routine, Pain (scale 7-10) HYDROcodone 2020-0 Yes 1{tbl} 1 tablet, NPI:183 -acetaminop 2-14 Oral, [id number] hen (NORCO 22:36: Q6HPRN, 5) 5-325 mg 16 Starting tablet 1 Fri tablet 03/24/19 at 1636, Until Discontinu ed, Routine, Pain (scale 4-6) diphenhydrA 2020-0 Yes 25mg 25 mg, IV N PI:183 MINE-0.9 % 2-14 Piggyback, 131 8781 sod.chlr 22:36: Administer (BENADRYL) 16 over 30 25 mg/50 mL Minutes, piggyback Q6HPRN, 1 25 mg dose, Starting Wed03/24/19 at 1636, Until Discontinu ed, Routine, Itching diphenhydrA 2020-0 Yes 25mg 25 mg, NPI: 183 MINE 2-14 Oral, [id number] (BENADRYL) 22:36: Q6HPRN, tablet 25 16 Starting mg 03/24/19 at 1636, Until Discontinu ed, Routine, Sleep, Itching ondansetron 2020-0 Yes 4mg 4 mg, Slow NPI:183 (ZOFRAN 2-14 IV Push, [id number] (PF)) 22:36: Q8HPRN, injection 4 16 Starting mg 03/24/19 at 1636, Until Discontinu ed, Routine, Nausea and Vomiting (N/V) simethicone 2020-0 Yes 160mg 160 mg, ETIOLOGIST I:183 (GAS RELIEF 2-14 Oral, [id number] (SIMETHICON 22:36: PC+HSPRN, E)) 16 Starting chewable Fri tablet 160 03/24/19 at mg 1636, Until Discontinu ed, Routine, Gas docusate 2020-0 Yes 240mg 240 mg, NPI:1 83 calcium 2-14 Oral, [id number] (SURFAK) 22:36: QDAILYPRN, capsule 240 16 Starting mg 03/24/19 at 1636, Until Discontinu ed, Routine, Constipati on magnesium 2020-0 Yes 30mL 30 mL, NPI:18 3 hydroxide 2-14 Oral, [id number] (MILK OF 22:36: QDAILYPRN, MAGNESIA) 16 Starting 400 mg/5 mL Fri suspension 03/24/19 at 30 mL 1636, Until Discontinu ed, Routine, Constipati on bisacodyL 2020-0 Yes 10mg 10 mg, NPI:18 3 (DULCOLAX) 2-14 Rectal, [id number] 1 suppository 22:36: QDAILYPRN, 10 mg 15 Starting 03/24/19 at 1636, Until Discontinu ed, Routine, Constipati on rho(D) 2020-0 Yes 300ug 300 mcg, NPI:18 3 immune 2-14 Intramuscu [id number] globulin 20:53: lar, ONCE, (RHOGAM) 46 For 1 syringe 300 dose, mcg Conditiona l, Routine HYDROcodone 2020-0 Yes 1{tbl} 1 tablet, NPI:183 -acetaminop 2-14 Oral, [id number] hen (NORCO 20:48: Q6HPRN, 5) 5-325 mg 39 Starting tablet 1 Wed tablet 03/24/19 at 1448, Until Discontinu ed, Routine, Pain (scale 4-6), PACU ketorolac 2020-0 Yes 30mg 30 mg, NPI:18 3 (TORADOL) 2-14 Slow IV [id number] injection 20:48: Push, 30 mg 39 Q6HPRN, 4 doses, Starting 03/24/19 at 1448, Until Discontinu ed, Routine, Pain (scale 1-3), [facility] : ABHISHEK DOVER naloxone 2020-0 Yes .2mg 0.2 mg, NPI:18 3 (NARCAN) 2-14 Intramuscu [id number] injection 20:48: lar, 0.2 mg 39 Q3HPRN, Starting 03/24/19 at 1448, Until Discontinu ed, Routine, Itching, PACU sodium 2019-0 2020- No 30mL 30 mL, NPI:183 citrate-cit -24 03- Oral, [id number] 1 venus acid 16:33: 18:15 PRE-PROCED (BICITRA) 48 :00 URE ONCE, 500-334 1 dose, mg/5 mL Starting solution 30 Fri mL 03/24/19 at 1033, Until Discontinu ed, Routine, Surgery ceFAZolin 2019-0 2020- No 2000mg 2 g (2,000 NPI:183 in dextrose 03-24-14 mg), IV 1310 781 (iso-os) 16:33: 18:17 Piggyback, (ANCEF) 2 48 :00 O.R. gram/100 mL HOLDING Piggyback 2 ONCE, 1 g dose, Starting 03/24/19 at 1033, Until Discontinu ed, 100 mL
Reas on for Anti-Infec tive: Surgical Prophylaxi s
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
Duration of therapy: within 24 hours of surgery LR 1000 mL 2020-0 2020- No 2mU/min 2 NPI :183 + oxytocin 03-24-14 willie-unit 13 95067 20 units IV 09:50: 20:48 s/min (6 Solution 37 :30 mL/hr), at 6 mL/hr, IV Infusion, TITRATE, Starting Wed03/24/19 at 0350, Until Wed03/24/19 at 1448, STELLA, Oxytocin induction. lactated 2020-0 2020- No 500mL at 999 NPI:1 83 ringers IV 03-23 mL/hr, 500 13 59098 infusion 23:45: 22:42 mL, IV 500 mL 00 :00 Infusion, ONCE, 1 dose, Cindy 03/23/19 at 1745, Routine proMETHazin 2020-0 2020- No 25mg 25 mg, IV NPI:183 e 03-23 Piggyback, [id number] (PHENERGAN) 19:15: 19:25 ONCE, 1 25 mg in 00 :00 dose, Cindy NaCl 0.9% 03/23/19 at (NS) 50 mL 1315, IV Routine piggyback nalbuphine 2019-0 2020- No 10mg 10 mg, NPI: 183 (NUBAIN) 03-23 Intravenou [id number] 781 injection 19:15: 18:22 s, ONCE, 1 10 mg 00 :00 dose, Cindy 03/23/19 at 1315, Routine proMETHazin 2019-0 2020- No 25mg 25 mg, IV NPI:183 e 03-23 Piggyback, [id number] (PHENERGAN) 13:15: 14:31 ONCE, 1 25 mg in 00 :00 dose, Cindy NaCl 0.9% 03/23/19 at (NS) 50 mL 0715, IV Routine piggyback nalbuphine 2019-0 2020- No 10mg 10 mg, NPI: 183 (NUBAIN) 03-23 Intravenou 1318 781 injection 13:15: 12:15 s, ONCE, 1 10 mg 00 :00 dose, Cindy 03/23/19 at 0715, Routine D5W-LR IV 2019-0 2020- No 1000mL at 125 NPI :183 infusion 03-2314 mL/hr, [place] [address] 81 1,000 mL 12:15: 20:49 Infusion, 00 :27 CONTINUOUS , Starting Cindy 03/23/19 at 0615, Until Wed03/24/19 at 1449, Routine sodium 2019- No 30mL 30 mL, NPI:183 citrate-cit 03-23 Oral, [id number] 1 venus acid 12:05: 22:46 PRE-PROCED (BICITRA) 47 :00 URE ONCE, 500-334 1 dose, mg/5 mL Starting solution 30 Cindy mL 03/23/19 at 0605, Until Discontinu ed, Routine, Surgery/Pr ocedure acetaminoph No 650mg 650 mg, N PI:183 en 03-22 Oral, [id number] (TYLENOL) 23:00: 22:07 ONCE, 1 tablet 650 00 :00 dose, Wed mg 03/22/19 at 1700, Routine butalbital- 2019- No 2{tbl} 2 tablet, NPI:183 acetaminoph 03-20 Oral, [id number] 1 en-caff 02:15: 01:21 ONCE, 1 (ESGIC) 00 :00 dose, Sun 50-325-40 03/19/19 at mg tablet 2 2014, tablet Routine metroNIDAZO No 500mg 500 mg, N PI:183 LE (FLAGYL) 03-17 02-14 Oral, BID, 1 130410 tablet 500 14:00: 01:56 14 doses, mg 00 :00 First dose on Wed03/17/19 at 0800, Last dose on Cindy 03/23/19 at 2000, Routine
Reason for Anti-Infec tive: Empiric Therapy for Suspected Infection< br>Empiric Therapy Site: Pelvic
Duration of therapy: 7 days acetaminoph No 650mg 650 mg, N PI:183 en 03-17- Oral, ONCE [id number] (TYLENOL) 03:30: 02:16 NOW, 1 tablet 650 00 :00 dose, Cindy mg 03/16/19 at 2130, Routine lactated 2019- No 1000mL at 999 NPI: 183 ringers IV 03-17-07 mL/hr, [id number] 1 infusion 03:00: 02:00 1,000 mL, 1,000 mL 00 :00 Intravenou s, ONCE, 1 dose, Cindy 03/16/19 at 2100, Routine ferrous 2018- Yes [id number] 325mg Take 1 NPI :183 sulfate 325 2-23 tablet by 131 8781 mg (65 mg 00:00: mouth 2 iron) 00 (two) tablet times daily. ferrous 2018-02 Yes [id number] 325mg Take 1 NPI :183 sulfate 325 2-23 tablet by 131 8781 mg (65 mg 00:00: mouth 2 iron) 00 (two) tablet times daily. ferrous 2018-02 Yes [id number] 325mg Take 1 NPI :183 sulfate 325 2-23 tablet by 131 8781 mg (65 mg 00:00: mouth 2 iron) 00 (two) tablet times daily. ferrous 2018-02 Yes [id number] 325mg Take 1 NPI :183 sulfate 325 2-23 tablet by 131 8781 mg (65 mg 00:00: mouth 2 iron) 00 (two) tablet times daily. ferrous 2018-02 Yes [id number] 325mg Take 1 NPI :183 sulfate 325 2-23 tablet by 131 8781 mg (65 mg 00:00: mouth 2 iron) 00 (two) tablet times daily. ferrous 2018-02 Yes [id number] 325mg Take 1 NPI :183 sulfate 325 2-23 tablet by 131 8781 mg (65 mg 00:00: mouth 2 iron) 00 (two) tablet times daily. ferrous 2018-02 Yes [id number] 325mg Take 1 NPI :183 sulfate 325 2-23 tablet by 131 8781 mg (65 mg 00:00: mouth 2 iron) 00 (two) tablet times daily. ferrous 2018-02 Yes [id number] 325mg Take 1 NPI :183 sulfate 325 2-23 tablet by 131 8781 mg (65 mg 00:00: mouth 2 iron) 00 (two) tablet times daily. ferrous 2018-02 Yes [id number] 325mg Take 1 NPI :183 sulfate 325 2-23 tablet by 131 8781 mg (65 mg 00:00: mouth 2 iron) 00 (two) tablet times daily. ferrous 2018- Yes [id number] 325mg Take 1 NPI :183 sulfate 325 2-23 tablet by 131 8781 mg (65 mg 00:00: mouth 2 iron) 00 (two) tablet times daily. ferrous 2018- Yes [id number] 325mg Take 1 NPI :183 sulfate 325 2-23 tablet by 131 8781 mg (65 mg 00:00: mouth 2 iron) 00 (two) tablet times daily. ferrous 2018-02 Yes [id number] 325mg Take 1 NPI :183 sulfate 325 2-23 tablet by [id number] mg (65 mg 00:00: mouth 2 iron) 00 (two) tablet times daily. ferrous 2018-02- No [id number] 325mg Take 1 ETIOLOGIST I:183 sulfate 325 2-23 06-18 tablet by [id number] mg (65 mg 00:00: 00:00 mouth 2 iron) 00 :00 (two) tablet times daily. ferrous 2018-02- No [id number] 325mg Take 1 ETIOLOGIST I:183 sulfate 325 2-23 -18 tablet by 13 [id number] mg (65 mg 00:00: 00:00 mouth 2 iron) 00 :00 (two) tablet times daily. pantoprazol 2018-02 Yes [id number] 20mg Take 1 NPI:183 e 0-14 tablet by [id number] (PROTONIX) 00:00: mouth 20 mg EC 00 daily. tablet pantoprazol 2018-02 Yes [id number] 20mg Take 1 NPI:183 e 0-14 tablet by [id number] (PROTONIX) 00:00: mouth 20 mg EC 00 daily. tablet pantoprazol 2018-02 Yes [id number] 20mg Take 1 NPI:183 e 0-14 tablet by [id number] (PROTONIX) 00:00: mouth 20 mg EC 00 daily. tablet pantoprazol 2018-02 Yes [id number] 20mg Take 1 NPI:183 e 0-14 tablet by [id number] (PROTONIX) 00:00: mouth 20 mg EC 00 daily. tablet pantoprazol 2018-02 Yes [id number] 20mg Take 1 NPI:183 e 0-14 tablet by [id number] (PROTONIX) 00:00: mouth 20 mg EC 00 daily. tablet pantoprazol 2018-02 Yes [id number] 20mg Take 1 NPI:183 e 0-14 tablet by [id number] (PROTONIX) 00:00: mouth 20 mg EC 00 daily. tablet pantoprazol 2018-02 Yes [id number] 20mg Take 1 NPI:183 e 0-14 tablet by [id number] (PROTONIX) 00:00: mouth 20 mg EC 00 daily. tablet pantoprazol 2018-02 Yes [id number] 20mg Take 1 NPI:183 e 0-14 tablet by [id number] (PROTONIX) 00:00: mouth 20 mg EC 00 daily. tablet pantoprazol 2018-02 Yes [id number] 20mg Take 1 NPI:183 e 0-14 tablet by [id number] (PROTONIX) 00:00: mouth 20 mg EC 00 daily. tablet pantoprazol 2018-02 Yes [id number] 20mg Take 1 NPI:183 e 0-14 tablet by [id number] (PROTONIX) 00:00: mouth 20 mg EC 00 daily. tablet pantoprazol 2018-02 Yes [id number] 20mg Take 1 NPI:183 e 0-14 tablet by [id number] (PROTONIX) 00:00: mouth 20 mg EC 00 daily. tablet pantoprazol 2018-02 Yes [id number] 20mg Take 1 NPI:183 e 0-14 tablet by [id number] (PROTONIX) 00:00: mouth 20 mg EC 00 daily. tablet pantoprazol 2018-02- No [id number] 20mg Take 1 NPI:183 e 0-14 06-18 tablet by [id number] (PROTONIX) 00:00: 00:00 mouth 20 mg EC 00 :00 daily. tablet pantoprazol 2018-02- No [id number] 20mg Take 1 NPI:183 e 0-14 06-18 tablet by [id number] (PROTONIX) 00:00: 00:00 mouth 20 mg EC 00 :00 daily. tablet proMETHazin Yes [id number] 25mg Take 1 NPI:183 e 25 mg 7-23 tablet by [id number] tablet 00:00: mouth 00 every 4 (four) hours as needed for Nausea and Vomiting (N/V). proMETHazin Yes [id number] 25mg Take 1 NPI:183 e 25 mg 7-23 tablet by [id number] tablet 00:00: mouth 00 every 4 (four) hours as needed for Nausea and Vomiting (N/V). proMETHazin Yes [id number] 25mg Take 1 NPI:183 e 25 mg 7-23 tablet by [id number] tablet 00:00: mouth 00 every 4 (four) hours as needed for Nausea and Vomiting (N/V). proMETHazin Yes [id number] 25mg Take 1 NPI:183 e 25 mg 7-23 tablet by [id number] tablet 00:00: mouth 00 every 4 (four) hours as needed for Nausea and Vomiting (N/V). proMETHazin Yes [id number] 25mg Take 1 NPI:183 e 25 mg 7-23 tablet by [id number] tablet 00:00: mouth 00 every 4 (four) hours as needed for Nausea and Vomiting (N/V). proMETHazin 0 Yes [id number] 25mg Take 1 NPI:183 e 25 mg 7-23 tablet by [id number] tablet 00:00: mouth 00 every 4 (four) hours as needed for Nausea and Vomiting (N/V). proMETHazin Yes [id number] 25mg Take 1 NPI:183 e 25 mg 7-23 tablet by [id number] tablet 00:00: mouth 00 every 4 (four) hours as needed for Nausea and Vomiting (N/V). proMETHazin 0 Yes [id number] 25mg Take 1 NPI:183 e 25 mg 7-23 tablet by [id number] tablet 00:00: mouth 00 every 4 (four) hours as needed for Nausea and Vomiting (N/V). proMETHazin Yes [id number] 25mg Take 1 NPI:183 e 25 mg 7-23 tablet by [id number] tablet 00:00: mouth 00 every 4 (four) hours as needed for Nausea and Vomiting (N/V). proMETHazin Yes [id number] 25mg Take 1 NPI:183 e 25 mg 7-23 tablet by [id number] tablet 00:00: mouth 00 every 4 (four) hours as needed for Nausea and Vomiting (N/V). proMETHazin Yes [id number] 25mg Take 1 NPI:183 e 25 mg 7-23 tablet by [id number] tablet 00:00: mouth 00 every 4 (four) hours as needed for Nausea and Vomiting (N/V). proMETHazin Yes [id number] 25mg Take 1 NPI:183 e 25 mg 7-23 tablet by [id number] tablet 00:00: mouth 00 every 4 (four) hours as needed for Nausea and Vomiting (N/V). proMETHazin 0 Yes [id number] 25mg Take 1 NPI:183 e 25 mg 7-23 tablet by [id number] tablet 00:00: mouth 00 every 4 (four) hours as needed for Nausea and Vomiting (N/V). proMETHazin 2019-0 Yes [id number] 25mg Take 1 NPI:183 e 25 mg 7-23 tablet by [id number] tablet 00:00: mouth 00 every 4 (four) hours as needed for Nausea and Vomiting (N/V). proMETHazin Yes [id number] 25mg Take 1 NPI:183 e 25 mg 7-23 tablet by [id number] tablet 00:00: mouth 00 every 4 (four) hours as needed for Nausea and Vomiting (N/V). proMETHazin Yes [id number] 25mg Take 1 NPI:183 e 25 mg 7-23 tablet by [id number] tablet 00:00: mouth 00 every 4 (four) hours as needed for Nausea and Vomiting (N/V). proMETHazin Yes [id number] 25mg Take 1 NPI:183 e 25 mg 7-23 tablet by [id number] tablet 00:00: mouth 00 every 4 (four) hours as needed for Nausea and Vomiting (N/V). proMETHazin 2020- No [id number] 25mg Take 1 NPI:183 e 25 mg 7-23 02-15 tablet by [id number] tablet 00:00: 00:00 mouth 00 :00 every 4 (four) hours as needed for Nausea and Vomiting (N/V). Yes [id number] 1{packe Take 1 NPI:183 vit 6-26 t} Packet by [id number] 33-iron-fol 00:00: mouth ic-dha 00 daily. (SELECT-OB + DHA) 29 mg iron-1 mg -250 mg combo pack CITRANATAL Yes 1{tbl} Take 1 NPI :183 90 DHA, 6-26 tablet by [id number] ALGAL OIL, 00:00: mouth 90 mg 00 daily. iron-1 mg -50 mg-300 mg combo pack 0 Yes [id number] 1{packe Take 1 NPI:183 vit 6-26 t} Packet by [id number] 33-iron-fol 00:00: mouth ic-dha 00 daily. (SELECT-OB + DHA) 29 mg iron-1 mg -250 mg combo pack CITRANATAL Yes 1{tbl} Take 1 NPI :183 90 DHA, 6-26 tablet by [id number] ALGAL OIL, 00:00: mouth 90 mg 00 daily. iron-1 mg -50 mg-300 mg combo pack Yes [id number] 1{packe Take 1 NPI:183 vit 6-26 t} Packet by [id number] 33-iron-fol 00:00: mouth ic-dha 00 daily. (SELECT-OB + DHA) 29 mg iron-1 mg -250 mg combo pack CITRANATAL Yes 1{tbl} Take 1 NPI :183 90 DHA, 6-26 tablet by [id number] ALGAL OIL, 00:00: mouth 90 mg 00 daily. iron-1 mg -50 mg-300 mg combo pack Yes [id number] 1{packe Take 1 NPI:183 vit 6-26 t} Packet by [id number] 33-iron-fol 00:00: mouth ic-dha 00 daily. (SELECT-OB + DHA) 29 mg iron-1 mg -250 mg combo pack CITRANATAL Yes 1{tbl} Take 1 NPI :183 90 DHA, 6-26 tablet by [id number] ALGAL OIL, 00:00: mouth 90 mg 00 daily. iron-1 mg -50 mg-300 mg combo pack Yes [id number] 1{packe Take 1 NPI:183 vit 6-26 t} Packet by [id number] 33-iron-fol 00:00: mouth ic-dha 00 daily. (SELECT-OB + DHA) 29 mg iron-1 mg -250 mg combo pack CITRANATAL Yes 1{tbl} Take 1 NPI :183 90 DHA, 6-26 tablet by [id number] ALGAL OIL, 00:00: mouth 90 mg 00 daily. iron-1 mg -50 mg-300 mg combo pack Yes [id number] 1{packe Take 1 NPI:183 vit 6-26 t} Packet by [id number] 33-iron-fol 00:00: mouth ic-dha 00 daily. (SELECT-OB + DHA) 29 mg iron-1 mg -250 mg combo pack CITRANATAL Yes 1{tbl} Take 1 NPI :183 90 DHA, 6-26 tablet by [id number] ALGAL OIL, 00:00: mouth 90 mg 00 daily. iron-1 mg -50 mg-300 mg combo pack Yes [id number] 1{packe Take 1 NPI:183 vit 6-26 t} Packet by [id number] 33-iron-fol 00:00: mouth ic-dha 00 daily. (SELECT-OB + DHA) 29 mg iron-1 mg -250 mg combo pack CITRANATAL Yes 1{tbl} Take 1 NPI :183 90 DHA, 6-26 tablet by [id number] ALGAL OIL, 00:00: mouth 90 mg 00 daily. iron-1 mg -50 mg-300 mg combo pack Yes [id number] 1{packe Take 1 NPI:183 vit 6-26 t} Packet by [id number] 33-iron-fol 00:00: mouth ic-dha 00 daily. (SELECT-OB + DHA) 29 mg iron-1 mg -250 mg combo pack CITRANATAL Yes 1{tbl} Take 1 NPI :183 90 DHA, 6-26 tablet by [id number] ALGAL OIL, 00:00: mouth 90 mg 00 daily. iron-1 mg -50 mg-300 mg combo pack Yes [id number] 1{packe Take 1 NPI:183 vit 6-26 t} Packet by [id number] 33-iron-fol 00:00: mouth ic-dha 00 daily. (SELECT-OB + DHA) 29 mg iron-1 mg -250 mg combo pack CITRANATAL Yes 1{tbl} Take 1 NPI :183 90 DHA, 6-26 tablet by [id number] ALGAL OIL, 00:00: mouth 90 mg 00 daily. iron-1 mg -50 mg-300 mg combo pack Yes [id number] 1{packe Take 1 NPI:183 vit 6-26 t} Packet by [id number] 33-iron-fol 00:00: mouth ic-dha 00 daily. (SELECT-OB + DHA) 29 mg iron-1 mg -250 mg combo pack CITRANATAL Yes 1{tbl} Take 1 NPI :183 90 DHA, 6-26 tablet by [id number] ALGAL OIL, 00:00: mouth 90 mg 00 daily. iron-1 mg -50 mg-300 mg combo pack Yes [id number] 1{packe Take 1 NPI:183 vit 6-26 t} Packet by [id number] 33-iron-fol 00:00: mouth ic-dha 00 daily. (SELECT-OB + DHA) 29 mg iron-1 mg -250 mg combo pack CITRANATAL Yes 1{tbl} Take 1 NPI :183 90 DHA, 6-26 tablet by [id number] ALGAL OIL, 00:00: mouth 90 mg 00 daily. iron-1 mg -50 mg-300 mg combo pack Yes [id number] 1{packe Take 1 NPI:183 vit 6-26 t} Packet by [id number] 33-iron-fol 00:00: mouth ic-dha 00 daily. (SELECT-OB + DHA) 29 mg iron-1 mg -250 mg combo pack CITRANATAL Yes 1{tbl} Take 1 NPI :183 90 DHA, 6-26 tablet by [id number] ALGAL OIL, 00:00: mouth 90 mg 00 daily. iron-1 mg -50 mg-300 mg combo pack Yes [id number] 1{packe Take 1 NPI:183 vit 6-26 t} Packet by [id number] 33-iron-fol 00:00: mouth ic-dha 00 daily. (SELECT-OB + DHA) 29 mg iron-1 mg -250 mg combo pack CITRANATAL Yes 1{tbl} Take 1 NPI :183 90 DHA, 6-26 tablet by [id number] ALGAL OIL, 00:00: mouth 90 mg 00 daily. iron-1 mg -50 mg-300 mg combo pack Yes [id number] 1{packe Take 1 NPI:183 vit 6-26 t} Packet by [id number] 33-iron-fol 00:00: mouth ic-dha 00 daily. (SELECT-OB + DHA) 29 mg iron-1 mg -250 mg combo pack CITRANATAL Yes 1{tbl} Take 1 NPI :183 90 DHA, 6-26 tablet by [id number] ALGAL OIL, 00:00: mouth 90 mg 00 daily. iron-1 mg -50 mg-300 mg combo pack Yes [id number] 1{packe Take 1 NPI:183 vit 6-26 t} Packet by [id number] 33-iron-fol 00:00: mouth ic-dha 00 daily. (SELECT-OB + DHA) 29 mg iron-1 mg -250 mg combo pack CITRANATAL Yes 1{tbl} Take 1 NPI :183 90 DHA, 6-26 tablet by [id number] ALGAL OIL, 00:00: mouth 90 mg 00 daily. iron-1 mg -50 mg-300 mg combo pack Yes [id number] 1{packe Take 1 NPI:183 vit 6-26 t} Packet by [id number] 33-iron-fol 00:00: mouth ic-dha 00 daily. (SELECT-OB + DHA) 29 mg iron-1 mg -250 mg combo pack CITRANATAL Yes 1{tbl} Take 1 NPI :183 90 DHA, 6-26 tablet by [id number] ALGAL OIL, 00:00: mouth 90 mg 00 daily. iron-1 mg -50 mg-300 mg combo pack Yes [id number] 1{packe Take 1 NPI:183 vit 6-26 t} Packet by [id number] 33-iron-fol 00:00: mouth ic-dha 00 daily. (SELECT-OB + DHA) 29 mg iron-1 mg -250 mg combo pack CITRANATAL Yes 1{tbl} Take 1 NPI :183 90 DHA, 6-26 tablet by [id number] ALGAL OIL, 00:00: mouth 90 mg 00 daily. iron-1 mg -50 mg-300 mg combo pack 2020- No [id number] 1{packe Take 1 NPI:183 vit 6-26 02-15 t} Packet by [id number] 33-iron-fol 00:00: 00:00 mouth ic-dha 00 :00 daily. (SELECT-OB + DHA) 29 mg iron-1 mg -250 mg combo pack CITRANATAL 2020- No 1{tbl} Take 1 ETIOLOGIST I:183 90 DHA, 6-26 02-15 tablet by [id number] ALGAL OIL, 00:00: 00:00 mouth 90 mg 00 :00 daily. iron-1 mg -50 mg-300 mg combo pack No known No NPI:183 medications [id number] No known No NPI:183 medications [id number] No known No NPI:183 medications [id number] No known No NPI:183 medications [id number] No known No NPI:183 medications [id number] Immunizations Ordered Immunization Filled Immunization Date Status Commen ts Source Name Name Rho (d) Immune 2019-03-25 Completed NPI:[id number] 0441 Globulin 00:00:00 Rho (d) Immune 2019-03-25 Completed NPI:[id number] 4894 Globulin 00:00:00 Rho (d) Immune 2019-03-25 Completed NPI:[id number] 0707 Globulin 00:00:00 Rho (d) Immune 2019-03-25 Completed NPI:[id number] 7429 Globulin 00:00:00 Rho (d) Immune 2019-03-25 Completed NPI:[id number] 5583 Globulin 00:00:00 Rho (d) Immune 2019-03-25 Completed NPI:[id number] 3336 Globulin 00:00:00 Rho (d) Immune 2019-03-25 Completed NPI:[id number] 0285 Globulin 00:00:00 Rho (d) Immune 2019-03-25 Completed NPI:[id number] 7066 Globulin 00:00:00 Rho (d) Immune 2019-03-25 Completed NPI:[id number] 2546 Globulin 00:00:00 Rho (d) Immune 2019-03-25 Completed NPI:[id number] 0505 Globulin 00:00:00 Rho (d) Immune 2019-03-25 Completed NPI:[id number] 3671 Globulin 00:00:00 Rho (d) Immune 2019-03-25 Completed NPI:[id number] 3341 Globulin 00:00:00 Rho (d) Immune 2019-03-25 Completed NPI:[id number] 6997 Globulin 00:00:00 Rho (d) Immune 2019-03-25 Completed NPI:[id number] 7685 Globulin 00:00:00 Tdap 2019-01-30 Completed 00:00:00 Rho (d) Immune 2019-01-30 Completed NPI:[id number] 5221 Globulin 00:00:00 Tdap 2019-01-30 Completed 00:00:00 Rho (d) Immune 2019-01-30 Completed NPI:[id number] 6257 Globulin 00:00:00 Tdap 2019-01-30 Completed 00:00:00 Rho (d) Immune 2019-01-30 Completed NPI:[id number] 3698 Globulin 00:00:00 Tdap 2019-01-30 Completed 00:00:00 Rho (d) Immune 2019-01-30 Completed NPI:[id number] 0167 Globulin 00:00:00 Tdap 2019-01-30 Completed 00:00:00 Rho (d) Immune 2019-01-30 Completed NPI:[id number] 6995 Globulin 00:00:00 Tdap 2019-01-30 Completed 00:00:00 Rho (d) Immune 2019-01-30 Completed NPI:[id number] 8897 Globulin 00:00:00 Tdap 2019-01-30 Completed 00:00:00 Rho (d) Immune 2019-01-30 Completed NPI:[id number] 0785 Globulin 00:00:00 Tdap 2019-01-30 Completed 00:00:00 Rho (d) Immune 2019-01-30 Completed NPI:[id number] 8214 Globulin 00:00:00 Tdap 2019-01-30 Completed 00:00:00 Rho (d) Immune 2019-01-30 Completed NPI:[id number] 2863 Globulin 00:00:00 Tdap 2019-01-30 Completed 00:00:00 Rho (d) Immune 2019-01-30 Completed NPI:[id number] 6973 Globulin 00:00:00 Tdap 2019-01-30 Completed 00:00:00 Rho (d) Immune 2019-01-30 Completed NPI:[id number] 7629 Globulin 00:00:00 Tdap 2019-01-30 Completed 00:00:00 Rho (d) Immune 2019-01-30 Completed NPI:[id number] 8707 Globulin 00:00:00 TDAP 2019-01-30 Completed 00:00:00 Rho (d) Immune 2019-01-30 Completed NPI:[id number] 4961 Globulin 00:00:00 TDAP 2019-01-30 Completed 00:00:00 Rho (d) Immune 2019-01-30 Completed NPI:[id number] 1546 Globulin 00:00:00 TDAP 2019-01-30 Completed 00:00:00 Rho (d) Immune 2019-01-30 Completed NPI:[id number] 5665 Globulin 00:00:00 TDAP 2019-01-30 Completed 00:00:00 Rho (d) Immune 2019-01-30 Completed NPI:[id number] 6655 Globulin 00:00:00 TDAP 2019-01-30 Completed 00:00:00 Rho (d) Immune 2019-01-30 Completed NPI:[id number] 0714 Globulin 00:00:00 TDAP 2019-01-30 Completed 00:00:00 Rho (d) Immune 2019-01-30 Completed NPI:[id number] 1611 Globulin 00:00:00 TDAP 2019-01-30 Completed 00:00:00 Rho (d) Immune 2019-01-30 Completed NPI:436229 6290 Globulin 00:00:00 TDAP 2019-01-30 Completed 00:00:00 Rho (d) Immune 2019-01-30 Completed NPI:[id number] 6704 Globulin 00:00:00 TDAP 2019-01-30 Completed 00:00:00 Rho (d) Immune 2019-01-30 Completed NPI:[id number] 2403 Globulin 00:00:00 TDAP 2019-01-30 Completed 00:00:00 Rho (d) Immune 2019-01-30 Completed NPI:[id number] 6055 Globulin 00:00:00 Rho (d) Immune 2015-05-12 Completed NPI:509362 9496 Globulin 00:00:00 Rho (d) Immune 2015-05-12 Completed NPI:[id number] 9995 Globulin 00:00:00 Rho (d) Immune 2015-05-12 Completed NPI:[id number] 4778 Globulin 00:00:00 Rho (d) Immune 2015-05-12 Completed NPI:[id number] 4882 Globulin 00:00:00 Rho (d) Immune 2015-05-12 Completed NPI:437295 0348 Globulin 00:00:00 Rho (d) Immune 2015-05-12 Completed NPI:[id number] 4019 Globulin 00:00:00 Rho (d) Immune 2015-05-12 Completed NPI:[id number] 5841 Globulin 00:00:00 Rho (d) Immune 2015-05-12 Completed NPI:[id number] 1143 Globulin 00:00:00 Rho (d) Immune 2015-05-12 Completed NPI:[id number] 0396 Globulin 00:00:00 Rho (d) Immune 2015-05-12 Completed NPI:[id number] 9279 Globulin 00:00:00 Rho (d) Immune 2015-05-12 Completed NPI:[id number] 6400 Globulin 00:00:00 Rho (d) Immune 2015-05-12 Completed NPI:[id number] 7424 Globulin 00:00:00 Rho (d) Immune 2015-05-12 Completed NPI:[id number] 2632 Globulin 00:00:00 Rho (d) Immune 2015-05-12 Completed NPI:[id number] 8546 Globulin 00:00:00 Rho (d) Immune 2015-05-12 Completed NPI:426777 1856 Globulin 00:00:00 Rho (d) Immune 2015-05-12 Completed NPI:[id number] 2605 Globulin 00:00:00 Rho (d) Immune 2015-05-12 Completed NPI:[id number] 8288 Globulin 00:00:00 Rho (d) Immune 2015-05-12 Completed NPI:777538 0673 Globulin 00:00:00 Rho (d) Immune 2015-05-12 Completed NPI:[id number] 7322 Globulin 00:00:00 Rho (d) Immune 2015-05-12 Completed NPI:[id number] 4089 Globulin 00:00:00 Rho (d) Immune 2015-05-12 Completed NPI:[id number] 4834 Globulin 00:00:00 Rho (d) Immune 2015-05-12 Completed NPI:[id number] 8274 Globulin 00:00:00 Rho (d) Immune 2015-05-12 Completed NPI:[id number] 5226 Globulin 00:00:00 Rho (d) Immune 2015-05-12 Completed NPI:674763 8129 Globulin 00:00:00 Rho (d) Immune 2015-05-12 Completed NPI:[id number] 9258 Globulin 00:00:00 Rho (d) Immune 2015-05-12 Completed NPI:[id number] 0097 Globulin 00:00:00 Rho (d) Immune 2015-05-12 Completed NPI:[id number] 8214 Globulin 00:00:00 Rho (d) Immune 2015-05-12 Completed NPI:[id number] 0470 Globulin 00:00:00 Rho (d) Immune 2015-05-12 Completed NPI:004452 3308 Globulin 00:00:00 Rho (d) Immune 2015-05-12 Completed NPI:[id number] 7562 Globulin 00:00:00 Rho (d) Immune 2015-05-12 Completed NPI:[id number] 8702 Globulin 00:00:00 Tdap 2015-03-14 Completed 00:00:00 Rho (d) Immune 2015-03-14 Completed NPI:[id number] 2778 Globulin 00:00:00 Tdap 2015-03-14 Completed 00:00:00 Rho (d) Immune 2015-03-14 Completed NPI:[id number] 3874 Globulin 00:00:00 Tdap 2015-03-14 Completed 00:00:00 Rho (d) Immune 2015-03-14 Completed NPI:[id number] 0361 Globulin 00:00:00 Tdap 2015-03-14 Completed 00:00:00 Rho (d) Immune 2015-03-14 Completed NPI:[id number] 2271 Globulin 00:00:00 Tdap 2015-03-14 Completed 00:00:00 Rho (d) Immune 2015-03-14 Completed NPI:[id number] 2851 Globulin 00:00:00 Tdap 2015-03-14 Completed 00:00:00 Rho (d) Immune 2015-03-14 Completed NPI:[id number] 6889 Globulin 00:00:00 Tdap 2015-03-14 Completed 00:00:00 Rho (d) Immune 2015-03-14 Completed NPI:[id number] 3955 Globulin 00:00:00 Tdap 2015-03-14 Completed 00:00:00 Rho (d) Immune 2015-03-14 Completed NPI:[id number] 3783 Globulin 00:00:00 Tdap 2015-03-14 Completed 00:00:00 Rho (d) Immune 2015-03-14 Completed NPI:[id number] 7342 Globulin 00:00:00 Tdap 2015-03-14 Completed 00:00:00 Rho (d) Immune 2015-03-14 Completed NPI:732106 2612 Globulin 00:00:00 Tdap 2015-03-14 Completed 00:00:00 Rho (d) Immune 2015-03-14 Completed NPI:[id number] 0249 Globulin 00:00:00 Tdap 2015-03-14 Completed 00:00:00 Rho (d) Immune 2015-03-14 Completed NPI:485286 6496 Globulin 00:00:00 Tdap 2015-03-14 Completed 00:00:00 Rho (d) Immune 2015-03-14 Completed NPI:485163 6019 Globulin 00:00:00 Tdap 2015-03-14 Completed 00:00:00 Rho (d) Immune 2015-03-14 Completed NPI:[id number] 9200 Globulin 00:00:00 Tdap 2015-03-14 Completed 00:00:00 Rho (d) Immune 2015-03-14 Completed NPI:[id number] 1354 Globulin 00:00:00 Tdap 2015-03-14 Completed 00:00:00 Rho (d) Immune 2015-03-14 Completed NPI:[id number] 6172 Globulin 00:00:00 Tdap 2015-03-14 Completed 00:00:00 Rho (d) Immune 2015-03-14 Completed NPI:[id number] 5163 Globulin 00:00:00 Tdap 2015-03-14 Completed 00:00:00 Rho (d) Immune 2015-03-14 Completed NPI:216473 9571 Globulin 00:00:00 TDAP 2015-03-14 Completed 00:00:00 Rho (d) Immune 2015-03-14 Completed NPI:[id number] 9078 Globulin 00:00:00 TDAP 2015-03-14 Completed 00:00:00 Rho (d) Immune 2015-03-14 Completed NPI:565871 6566 Globulin 00:00:00 TDAP 2015-03-14 Completed 00:00:00 Rho (d) Immune 2015-03-14 Completed NPI:[id number] 7658 Globulin 00:00:00 TDAP 2015-03-14 Completed 00:00:00 Rho (d) Immune 2015-03-14 Completed NPI:[id number] 2589 Globulin 00:00:00 Tdap 2015-03-14 Completed 00:00:00 TDAP 2015-03-14 Completed 00:00:00 Rho (d) Immune 2015-03-14 Completed NPI:[id number] 4248 Globulin 00:00:00 Rho (d) Immune 2015-03-14 Completed NPI:[id number] 5891 Globulin 00:00:00 TDAP 2015-03-14 Completed 00:00:00 Rho (d) Immune 2015-03-14 Completed NPI:213142 8825 Globulin 00:00:00 TDAP 2015-03-14 Completed 00:00:00 Rho (d) Immune 2015-03-14 Completed NPI:[id number] 3313 Globulin 00:00:00 TDAP 2015-03-14 Completed 00:00:00 Rho (d) Immune 2015-03-14 Completed NPI:[id number] 2576 Globulin 00:00:00 TDAP 2015-03-14 Completed 00:00:00 Rho (d) Immune 2015-03-14 Completed NPI:[id number] 5171 Globulin 00:00:00 Tdap 2015-03-14 Completed 00:00:00 Rho (d) Immune 2015-03-14 Completed NPI:[id number] 3650 Globulin 00:00:00 TDAP 2015-03-14 Completed 00:00:00 Rho (d) Immune 2015-03-14 Completed NPI:[id number] 1855 Globulin 00:00:00 Tdap 2015-03-14 Completed 00:00:00 Rho (d) Immune 2015-03-14 Completed NPI:[id number] 0921 Globulin 00:00:00 Rho (d) Immune 2014-10-14 Completed NPI:[id number] 9506 Globulin 00:00:00 Rho (d) Immune 2014-10-14 Completed NPI:894764 1599 Globulin 00:00:00 Rho (d) Immune 2014-10-14 Completed NPI:[id number] 8974 Globulin 00:00:00 Rho (d) Immune 2014-10-14 Completed NPI:[id number] 2462 Globulin 00:00:00 Rho (d) Immune 2014-10-14 Completed NPI:563789 1172 Globulin 00:00:00 Rho (d) Immune 2014-10-14 Completed NPI:023874 9256 Globulin 00:00:00 Rho (d) Immune 2014-10-14 Completed NPI:033400 3060 Globulin 00:00:00 Rho (d) Immune 2014-10-14 Completed NPI:[id number] 9116 Globulin 00:00:00 Rho (d) Immune 2014-10-14 Completed NPI:258367 2676 Globulin 00:00:00 Rho (d) Immune 2014-10-14 Completed NPI:419557 5003 Globulin 00:00:00 Rho (d) Immune 2014-10-14 Completed NPI:387259 6312 Globulin 00:00:00 Rho (d) Immune 2014-10-14 Completed NPI:[id number] 6192 Globulin 00:00:00 Rho (d) Immune 2014-10-14 Completed NPI:[id number] 8643 Globulin 00:00:00 Rho (d) Immune 2014-10-14 Completed NPI:572229 9061 Globulin 00:00:00 Rho (d) Immune 2014-10-14 Completed NPI:[id number] 8332 Globulin 00:00:00 Rho (d) Immune 2014-10-14 Completed NPI:[id number] 2835 Globulin 00:00:00 Rho (d) Immune 2014-10-14 Completed NPI:[id number] 6955 Globulin 00:00:00 Rho (d) Immune 2014-10-14 Completed NPI:[id number] 2530 Globulin 00:00:00 Rho (d) Immune 2014-10-14 Completed NPI:[id number] 2018 Globulin 00:00:00 Rho (d) Immune 2014-10-14 Completed NPI:[id number] 7753 Globulin 00:00:00 Rho (d) Immune 2014-10-14 Completed NPI:[id number] 0698 Globulin 00:00:00 Rho (d) Immune 2014-10-14 Completed NPI:[id number] 0644 Globulin 00:00:00 Rho (d) Immune 2014-10-14 Completed NPI:[id number] 3607 Globulin 00:00:00 Rho (d) Immune 2014-10-14 Completed NPI:[id number] 2064 Globulin 00:00:00 Rho (d) Immune 2014-10-14 Completed NPI:[id number] 9112 Globulin 00:00:00 Rho (d) Immune 2014-10-14 Completed NPI:[id number] 6308 Globulin 00:00:00 Rho (d) Immune 2014-10-14 Completed NPI:[id number] 9616 Globulin 00:00:00 Rho (d) Immune 2014-10-14 Completed NPI:[id number] 3008 Globulin 00:00:00 Rho (d) Immune 2014-10-14 Completed NPI:[id number] 8876 Globulin 00:00:00 Rho (d) Immune 2014-10-14 Completed NPI:[id number] 3692 Globulin 00:00:00 Rho (d) Immune 2014-10-14 Completed NPI:[id number] 0890 Globulin 00:00:00 Tdap 2012-02-09 Completed 00:00:00 Tdap 2012-02-09 Completed 00:00:00 Tdap 2012-02-09 Completed 00:00:00 Tdap 2012-02-09 Completed 00:00:00 Tdap 2012-02-09 Completed 00:00:00 Tdap 2012-02-09 Completed 00:00:00 Tdap 2012-02-09 Completed 00:00:00 Tdap 2012-02-09 Completed 00:00:00 Tdap 2012-02-09 Completed 00:00:00 Tdap 2012-02-09 Completed 00:00:00 Tdap 2012-02-09 Completed 00:00:00 Tdap 2012-02-09 Completed 00:00:00 Tdap 2012-02-09 Completed 00:00:00 Tdap 2012-02-09 Completed 00:00:00 Tdap 2012-02-09 Completed 00:00:00 Tdap 2012-02-09 Completed 00:00:00 Tdap 2012-02-09 Completed 00:00:00 Tdap 2012-02-09 Completed 00:00:00 TDAP 2012-02-09 Completed 00:00:00 TDAP 2012-02-09 Completed 00:00:00 TDAP 2012-02-09 Completed 00:00:00 Tdap 2012-02-09 Completed 00:00:00 TDAP 2012-02-09 Completed 00:00:00 TDAP 2012-02-09 Completed 00:00:00 TDAP 2012-02-09 Completed 00:00:00 TDAP 2012-02-09 Completed 00:00:00 TDAP 2012-02-09 Completed 00:00:00 Tdap 2012-02-09 Completed 00:00:00 TDAP 2012-02-09 Completed 00:00:00 TDAP 2012-02-09 Completed 00:00:00 Tdap 2012-02-09 Completed 00:00:00 Vital Signs Vital Name Observation Time Observation Value Comments Source Systolic blood pressure 2021-01-07 20:43:00 126 mm[Hg] Diastolic blood 2021-01-07 20:43:00 87 mm[Hg] NPI:1 [id number] pressure Heart rate 2021-01-07 20:43:00 105 /min NPI:1831 [id number] Body temperature 2021-01-07 20:43:00 38.39 Ngoc Respiratory rate 2021-01-07 20:43:00 18 /min Body height 2021-01-07 20:43:00 170.2 cm NPI:1831 [id number] Body weight 2021-01-07 20:43:00 122.471 kg NPI:1831 [id number] BMI 2021-01-07 20:43:00 42.29 kg/m2 NPI:1831 [id number] Oxygen saturation in 2021-01-07 20:43:00 99 /min Arterial blood by Pulse oximetry Systolic blood pressure 2020-08-28 13:31:00 138 mm[Hg] Diastolic blood 2020-08-28 13:31:00 98 mm[Hg] NPI:1 [id number] pressure Heart rate 2020-08-28 13:31:00 80 /min NPI:1831 [id number] Body temperature 2020-08-28 13:31:00 36.78 Ngoc Respiratory rate 2020-08-28 13:31:00 16 /min Body height 2020-08-28 13:31:00 170.2 cm NPI:1831 [id number] Body weight 2020-08-28 13:31:00 127.642 kg NPI:1831 [id number] BMI 2020-08-28 13:31:00 44.07 kg/m2 NPI:1831 [id number] Systolic blood pressure 2019-07-27 13:53:00 147 mm[Hg] Diastolic blood 2019-07-27 13:53:00 91 mm[Hg] NPI:1 [id number] pressure Heart rate 2019-07-27 13:52:00 73 /min NPI:1831 290311 Body temperature 2019-07-27 13:52:00 36.28 Ngoc Respiratory rate 2019-07-27 13:52:00 16 /min Body height 2019-07-27 13:52:00 170.2 cm NPI:1831 637854 Body weight 2019-07-27 13:52:00 120.912 kg NPI:1831 480993 BMI 2019-07-27 13:52:00 41.75 kg/m2 NPI:1831 234728 Systolic blood pressure 2019-04-14 17:03:00 127 mm[Hg] Diastolic blood 2019-04-14 17:03:00 86 mm[Hg] NPI:1 [id number] pressure Heart rate 2019-04-14 17:02:00 83 /min NPI:1831 055317 Body temperature 2019-04-14 17:02:00 36.44 Ngoc Respiratory rate 2019-04-14 17:02:00 16 /min Body height 2019-04-14 17:02:00 170.2 cm NPI:1831 660886 Body weight 2019-04-14 17:02:00 127.064 kg NPI:1831 128482 BMI 2019-04-14 17:02:00 43.87 kg/m2 NPI:1831 614591 Systolic blood pressure 2019-03-31 17:46:00 145 mm[Hg] Diastolic blood 2019-03-31 17:46:00 95 mm[Hg] NPI:1 [id number] pressure Heart rate 2019-03-31 17:46:00 98 /min NPI:1831 341827 Body temperature 2019-03-31 17:46:00 37.22 Ngoc Respiratory rate 2019-03-31 17:46:00 16 /min Body height 2019-03-31 17:46:00 170.2 cm NPI:1831 945548 Body weight 2019-03-31 17:46:00 134.265 kg NPI:1831 164531 BMI 2019-03-31 17:46:00 46.36 kg/m2 NPI:1831 629052 Systolic blood pressure 2019-03-26 14:00:00 120 mm[Hg] Diastolic blood 2019-03-26 14:00:00 73 mm[Hg] NPI:1 [id number] pressure Heart rate 2019-03-26 14:00:00 113 /min NPI:1831 222553 Body temperature 2019-03-26 14:00:00 36.72 Ngoc Respiratory rate 2019-03-26 14:00:00 20 /min Oxygen saturation in 2019-03-26 14:00:00 98 /min Arterial blood by Pulse oximetry Body weight 2019-03-23 02:00:00 144.788 kg NPI:1831 250313 BMI 2019-03-23 02:00:00 49.98 kg/m2 NPI:1831 793685 Body height 2019-03-21 06:00:00 170.2 cm NPI:1831 544736 Systolic blood pressure 2019-03-16 20:12:00 140 mm[Hg] Diastolic blood 2019-03-16 20:12:00 90 mm[Hg] NPI:1 [id number] pressure Heart rate 2019-03-16 20:12:00 121 /min NPI:1831 849952 Body temperature 2019-03-16 20:11:00 36.11 Ngoc Respiratory rate 2019-03-16 20:11:00 16 /min Body height 2019-03-16 20:11:00 170.2 cm NPI:1831 464957 Body weight 2019-03-16 20:11:00 141.579 kg NPI:1831 269472 BMI 2019-03-16 20:11:00 48.89 kg/m2 NPI:1831 517272 Systolic blood pressure 2019-02-28 19:57:00 122 mm[Hg] Diastolic blood 2019-02-28 19:57:00 78 mm[Hg] NPI:1 [id number] pressure Heart rate 2019-02-28 19:57:00 130 /min NPI:1831 993771 Body temperature 2019-02-28 19:57:00 36.89 Ngoc Respiratory rate 2019-02-28 19:57:00 16 /min Body height 2019-02-28 19:57:00 170.2 cm NPI:1831 320121 Body weight 2019-02-28 19:57:00 138.914 kg NPI:1831 494728 BMI 2019-02-28 19:57:00 47.97 kg/m2 NPI:1831 743677 Systolic blood pressure 2018-10-12 21:35:00 122 mm[Hg] Diastolic blood 2018-10-12 21:35:00 74 mm[Hg] NPI:1 [id number] pressure Heart rate 2018-10-12 21:30:00 131 /min NPI:1831 050518 Body temperature 2018-10-12 21:30:00 36.61 Ngoc Respiratory rate 2018-10-12 21:30:00 18 /min Body height 2018-10-12 21:30:00 170.2 cm NPI:1831 249928 Body weight 2018-10-12 21:30:00 133.584 kg NPI:1831 175451 BMI 2018-10-12 21:30:00 46.13 kg/m2 NPI:1831 791606 Systolic blood pressure 2018-09-05 15:17:00 100 mm[Hg] Diastolic blood 2018-09-05 15:17:00 70 mm[Hg] NPI:1 [id number] pressure Heart rate 2018-09-05 15:17:00 66 /min NPI:1831 517671 Body temperature 2018-09-05 15:17:00 36.67 Ngoc Respiratory rate 2018-09-05 15:17:00 16 /min Body height 2018-09-05 15:17:00 170.2 cm NPI:1831 214397 Body weight 2018-09-05 15:17:00 137.043 kg NPI:1831 933878 BMI 2018-09-05 15:17:00 47.32 kg/m2 NPI:1831 404511 Procedures Procedure Date / Time Performed Performing Clinician [facility] e POCT RAPID FLU A AND B TEST 2021-01-07 00:00:00 Albino Rogers POCT GRP A STREP 2021-01-07 00:00:00 Yesica Rogers NPI:[id number] (MOLECULAR) POCT URINALYSIS GLUCOSE & 2019-07-27 14:13:00 Yaritza Stiles PROTEIN CBC WITH DIFFERENTIAL 2019-03-25 07:27:00 Maria E Hale NPI:18 [id number] HB -MATERNAL 2019-03-24 20:57:00 Corrina Tuttle NPI:1831 [id number] HEMORRHAGE SCREEN VENOUS CORD GAS 2019-03-24 19:12:00 Lauryn Guardado NPI:18 [id number] HEPATITIS B SURFACE ANTIGEN 2019-03-23 10:52:00 Venkata Velasquez Ma rtin HIV 1/2 AG-AB WITH REFLEX 2019-03-23 10:52:00 Venkata Velasquez in GALV ONLY - SYPHILIS 2019-03-23 10:52:00 Venkata Velasquez ETIOLOGIST I:[id number] IGG/IGM NON-STRESS TEST 2019-03-22 17:05:55 Venkata Velasquez PI:[id number] ANTI-D R/O PANEL 2019-03-22 06:38:00 Venkata Velasquez NPI:18 [id number] HB ABO GROUPING 2019-03-22 06:38:00 Venkata Velasquez NPI:901 [id number] RHO (D) IMMUNE GLOBULIN 2019-03-22 06:38:00 DorseyCristina conroyken NON-STRESS TEST 2019-03-21 17:14:40 Venkata Velasquez PI:[id number] ECHO ROUTINE W/DOPPLER 2019-03-20 17:36:22 Rachelle Alexander NPI:1 [id number] COLOR NON-STRESS TEST 2019-03-20 14:20:12 Amira Sierra NPI :[id number] NON-STRESS TEST 2019-03-19 21:48:50 Azalia Waters ETIOLOGIST I:[id number] Lovely Vieyra NON-STRESS TEST 2019-03-18 18:39:31 Amira Sierra NPI :[id number] ANTI-D R/O PANEL 2019-03-18 06:03:00 Venkata Velasquez NPI:18 [id number] HB ABO GROUPING 2019-03-18 06:03:00 Venkata Velasquez NPI:903 [id number] CREATININE U 24 HR 2019-03-18 03:52:00 Derrick Fernandez PROTEIN QUANT U/24H 2019-03-18 03:52:00 Derrick Fernandez NPI :[id number] NON-STRESS TEST 2019-03-17 19:26:58 Venkata Velasquez PI:[id number] SGOT (ASPARTATE AMINO 2019-03-17 02:01[facility]00 [facility] PI:[id number] TRANSFER) CREATININE 2019-03-17 02:01[facility]00 [facility] NPI:932 [id number] ALANINE AMINO 2019-03-17 02:01[facility]00 [facility] NPI:799 [id number] TRANSFERASE(SGPT LACTATE DEHYDROGENASE 2019-03-17 02:01[facility]00 [facility] N PI:[id number] URIC ACID 2019-03-17 02:01[facility]00 [facility] NPI:542 [id number] FREE T4 2019-03-17 02:01:00 Venkata Velasquez NPI:039 [id number] THYROID STIMULATING HORMONE 2019-03-17 02:01:00 Venkata Velasquez Ma rtin CBC WITH DIFFERENTIAL 2019-03-17 02:01:00 [facility] N PI:[id number] FREE T3 2019-03-17 02:01:00 Venkata Velasquez NPI:237 [id number] GROUP B STREPTOCOCCUS BY 2019-03-17 02:01:00 [facility] PCR URINALYSIS 2019-03-17 02:00:00 [facility] NPI:399 [id number] URINE CULTURE 2019-03-17 02:00:00 [facility] NPI:156 [id number] GC & CHLAMYDIA AMPLIFIED 2019-03-17 02:00:00 [facility] ASSAY PROTEIN CREAT RATIO URINE 2019-03-17 02:00:00 [facility] RANDOM NON-STRESS TEST 2019-03-16 21:07:07 Georgette Rossi NPI :[id number] GROUP B STREPTOCOCCUS BY 2019-03-16 21:05:00 Georgette Rossi PCR POCT URINALYSIS 2019-03-16 20:18:00 Yaritza Stiles NPI:[id number] POCT URINALYSIS 2019-02-28 20:11:00 Yaritza Stiles NPI:97111 24776 STERILIZATION CONSENT FORM 2019-02-13 06:01:00 Doctor Unassigned , No Name POCT URINALYSIS W/O 2018-10-12 21:34:00 Janice Norman NPI :[id number] SPECIFIC GRAVITY ANTICARDIOLIPIN ANTIBODIES 2018-09-05 16:26:00 Ursula Toth ette ANTI-B2 GLYCOPROTEIN I AB 2018-09-05 16:26:00 Ursula Tothade tte LUPUS ANTICOAGULANT SCREEN 2018-09-05 16:22:00 Ursula Toth ette PANEL LUPUS ANTICOAGULANT SCREEN 2018-09-05 16:22:00 Ursula Toth ette POCT URINALYSIS W/O 2018-09-05 15:18:00 Yaritza Stiles NPI:1 [id number] SPECIFIC GRAVITY Encounters Start End Encounter Admission Attending Care Care Encounter Source Date/Time Date/Time Type Type Clinicians Facility Department ID 2021-08-28 2021-08-28 Outpatient R GO [facility] [id number] -[id number] NPI:183 08:45:00 08:45:00 YARITZA [id number] 2021-08-28 2021-08-28 Outpatient R GO [facility] [id number] NPI:183 08:45:00 08:45:00 YARITZA [id number] 2021 2021 BRADY Pepper 1.2.529.640 [id number] NPI:183 00:00:00 00:00:00 Prema PERRY 350.1.13.10 [id number] [facility] 4.2.7.2.686 [id number] 2021-01-07 2021-01-07 Outpatient R [facility] [id number] -[id number] NPI:183 15:20:00 15:20:00 [id number] 2021-01-07 2021-01-07 Urgent Diana Owen [facility] 1.2.840.114 [id number] NPI:183 14:26:41 15:03:00 Care Unknown, [facility] 350.1.13.10 [id number] [place] 4.2.7.2.686 DESIRAE?BLEA [id number] [place] [address] MEDICAL OFFICE BUILDING 2021-01-07 2021-01-07 Outpatient R BRAYDEN [facility] [id number] NPI:183 14:30:00 14:52:05 DIANA [id number] 1 2021-01-07 2021-01-07 Laboratory Only, Ang Db Test [facility] 1.2.8 40.114 [id number] NPI:183 14:17:25 14:32:25 Only Unknown, [facility] 350.1.13.10 [id number] [place] 4.2.7.2.686 DESIRAE?BLEA [id number] [place] [address] MEDICAL OFFICE [facility] 2020-08-28 2020-08-28 [facility] 1.2.840.114 [id number] NPI:183 08:17:40 09:18:27 Visit Yaritza Davies [employer] 350.1.13.10 [id number] [place] [address].2.7.2.686 MATERNAL [id number] & CHILD [address] [place] [address] 2020-08-28 2020-08-28 Outpatient R GO [facility] [id number] -[id number] NPI:183 08:15:00 08:15:00 ROSNDA [id number] 2020-08-28 2020-08-28 Outpatient R GO [facility] [id number] NPI:183 08:15:00 08:15:00 RENITANDA [id number] 81 2020-07-29 2020-07-29 Outpatient Keke STILES [facility] [id number] -20 NPI:183 09:45:00 09:45:00 ROSMIESHANDA [id number] 2020-07-29 2020-07-29 Outpatient Keke STILES [facility] [id number] NPI:183 09:45:00 09:45:00 ROSNDA [id number] 2020-04-30 2020-04-30 Patient Casey [facility] 1.2.840.114 [id number] NPI:183 00:00:00 00:00:00 Outreach [facility] 350.1.13.10 1 [id number] [facility] 4.2.7.2.686 [facility] [id number] 2019-07-27 2019-07-27 Office Go [facility] 1.2.840.114 [id number] NPI:183 08:41:44 09:33:41 Visit Rosmieshanda R [employer] 350.1.13.[id number] [facility] 4.2.7.2.686 MATERNAL [id number] & CHILD 107 [facility] 2019-07-27 2019-07-27 Outpatient Keke STILES [facility] [id number] -[id number] NPI:183 08:30:00 08:30:00 ROSFLAQUITOA [id number] 2019-07-27 2019-07-27 Outpatient Keke STILES [facility] [id number] NPI:183 08:30:00 08:30:00 ROSHUNDA [id number] 2019-05-08 2019-05-08 Outpatient R GO [facility] [id number] -20 NPI:183 10:30:00 10:30:00 ROSMIESHANDA [id number] 2019-05-08 2019-05-08 Outpatient Keke STILES [facility] [id number] NPI:183 10:30:00 10:30:00 ROSMIESHANDA [id number] 2019-04-14 2019-04-14 [facility] 1.2.840.114 [id number] NPI:183 10:48:54 12:49:58 Rosmieshanda R [employer] 350.1.13.10 [id number] Visit REGIONAL 4.2.7.2.686 MATERNAL [id number] & CHILD 107 [facility] 2019-04-14 2019-04-14 Outpatient Keke STILES [facility] [id number] NPI:183 10:45:00 10:45:00 ROSHUNDA [id number] 2019-03-31 2019-03-31 [facility] 1.2 .840.114 [id number] NPI:183 11:31:31 12:03:46 Visit Janice Norman Gayla [employer] 350.1.13. [id number] [facility] 4.2.7.2.686 MATERNAL [id number] & CHILD 107 [facility] 2019-03-16 2019-03-26 [facility] BRADY Baer 1.2.840.114 [id number] NPI:183 19:23:00 15:35:00 Encounter Haley MONROE [address]1.13.[id number] [id number] 2019-03-16 2019-03-20 Routine Risk, Qrv-Jivcg-Aw/High [facility] 1. 2.840.114 [id number] NPI:183 13:53:42 08:51:45 StilesLucinaa R [employer] 350.1.13.1 [id number] Georgette Rossi [facility] 4.2.7.2.686 MATERNAL [id number] & CHILD 107 [facility] 2019-03-08 2019-03-08 Abstract Go [facility] 1.2.840.114 [id number] NPI:183 00:00:00 00:00:00 Roshunda R [employer] 350.1.13.[id number] [facility] 4.2.7.2.686 MATERNAL [id number] & CHILD 107 [facility] 2019-03-06 2019-03-06 Case Go [facility] 1.2.840.114 [id number] NPI:183 00:00:00 00:00:00 Management Roshunda R [employer] 350.1.13.[id number] [facility] 4.2.7.2.686 MATERNAL [id number] & CHILD 107 [facility] 2019-02-28 2019-02-28 Routine Go ORLIZETH 1.2.840.114 [id number] NPI:183 13:33:03 14:12:00 Roshunda R [employer] 350.1.13.[id number] [facility] 4.2.7.2.686 MATERNAL [id number] & CHILD 107 [facility] 2019-02-13 2019-02-13 Orders Doctor BRADY 1.2.840.114 [id number] NPI:183 00:00:00 00:00:00 Only Unassigned, FER 350.1.13.10 [id number] [place] [facility] 4.2.7.2.686 [id number] 2018-10-16 2018-10-16 Nurse BRADY Castro 1.2.840.114 [id number] NPI:183 00:00:00 00:00:00 Triage Luh MONROE 350.1.13.[id number] [id number] 2018-10-12 2018-10-12 [facility] 1.2.625.629 [id number] NPI:183 16:04:22 16:56:50 Janice Shukla [employer] 350.1.13.[id number] [facility] 4.2.7.2.686 MATERNAL [id number] & CHILD 107 [facility] 2018-09-21 2018-09-21 [facility]phone [facility] 1.2.840.114 [id number] NPI:183 00:00:00 00:00:00 Nessa Lieberman [employer] 350.1.13.[id number] [facility] 4.2.7.2.686 MATERNAL [id number] & CHILD 107 [facility] 2018-09-05 2018-09-08 Office Faculty, Steven [facility] 1.2 .840.114 [id number] NPI:183 09:52:24 09:14:29 Visit Ursula Toth [employer] 350.1.[id number] [facility] 4.2.7.2.686 MATERNAL [id number] & CHILD 107 [facility] 2018-09-08 2018-09-08 Telephone Ursula Toth [facility] 1.2.840.114 [id number] NPI:183 00:00:00 00:00:00 Winter [facility] [address].1.13.[id number] [id number] Results Test Description Test Time Test Comments Results Result Comments Source POCT RAPID FLU A AND B TEST 2021-01-07 21:10:00 Test Item Value Reference Range Interpretation Comme nts POCT INFLUENZA A (test code = neg Negative - Negative 3840) POCT INFLUENZA B (test code = neg Negative - Negative 3841) ADRIEN (test code = ADRIEN) accurate development and interpretation of all internal controls Lab Interpretation (test code = Normal 27570-1) NPI:[id number] GRP A STREP (MOLECULAR)2021-01-07 21:04:00 Test Item Value Reference Range Interpretation Comments POCT GP A STREP (test code = negative Negative - Negative 26731-9) NPI:[id number] URINALYSIS GLUCOSE & [id number] 14:13:00 Test Item Value Reference Range Interpretation Comments POCT U PROT (test code = 3259) 1+ Negative - Negative POCT U GLU (test code = 3256) Neg Negative - Negative NPI:[id number] URINALYSIS GLUCOSE & [id number] 14:13:00 Test Item Value Reference Range Interpretation Comments POCT U PROT (test code = 3259) 1+ Negative - Negative POCT U GLU (test code = 3256) Neg Negative - Negative NPI:[id number] WITH [id number] 07:59:00 Test Item Value Reference Range Interpretation Comments WBC (test code = See_Comment H [Automated 4390-2) message] The system which generated this result transmit jordyn reference range : 4.30 - 11.10 10*3/?L. The reference range was not used to interpret this result as normal/abnormal . RBC (test code = See_Comment L [Automated 219-8) message] The system which generated this result transmit jordyn reference range : 3.93 - 5.25 10*6/?L. The reference range was not used to interpret this result as normal/abnormal . HGB (test code = 7.7 g/dL 11.6-15 L 718-7) HCT (test code = 26.6 % 35.7-45.2 L 4544-3) MCV (test code = 74.1 fL 80.6-95.5 L 787-2) MCH (test code = 21.4 pg 25.9-32.8 L 785-6) MCHC (test code = 28.9 g/dL 31.6-35.1 L 786-4) RDW-SD (test code = 52.3 fL 39-49.9 H 42658-0) RDW-CV (test code = 19.9 % 12-15.5 H 788-0) PLT (test code = See_Comment [Automated 777-3) message] The system which generated this result transmit jordyn reference range : 166 - 358 10*3/ ?L. The reference range was not u sed to interpret th is result as normal/abnormal . MPV (test code = 10.7 fL 9.5-12.9 89352-8) NRBC/100 WBC (test See_Comment [Automat ed code = 1083995707) message] The system which generated this result transmit jordyn reference range : 0.0 - 10.0 /100 WBCs. The reference range was not used to interpret this result as normal/abnormal . NRBC x10^3 (test code See_Comment [Auto mated = 5031950973) message] The system which generated this result transmit jordyn reference range : 10*3/?L. The reference range was not used to interpret this result as normal/abnormal . GRAN MAT (NEUT) % 75.5 % (test code = 770-8) IMM GRAN % (test code 0.90 % = 4489692886) LYMPH % (test code = 15.2 % 736-9) MONO % (test code = 8.0 % 5905-5) EOS % (test code = 0.3 % 713-8) BASO % (test code = 0.1 % 706-2) GRAN MAT x10^3(ANC) 10.85 10*3/uL 1.88-7.09 H (test code = 5793467920) IMM GRAN x10^3 (test 0.13 10*3/uL 0-0.06 H code = 6895348201) LYMPH x10^3 (test code 2.19 10*3/uL 1.32-3.29 = 731-0) MONO x10^3 (test code 1.15 10*3/uL 0.33-0.92 H = 742-7) EOS x10^3 (test code = 0.05 10*3/uL 0.03-0.39 711-2) BASO x10^3 (test code <0.03 0.01-0.07 = 704-7) Lab Interpretation Abnormal (test code = 47933-0) NPI:[id number] MATERNAL HEMO [id number] 22:48:06 Test Item Value Reference Range Interpretation Comments SCREEN (test Negative Performed at [facility] code = 846) Laboratory Serv [facility] Blood [facility]3 [address] [facility] [address]Idkj Free: [phone] A No. [id number] RHIG REQUIRED? (test 1 Syringe Perform ed at [facility] code = 1747) Laboratory Serv [facility] [address] [facility] [place] [address]Mffb Free: [phone] A No. [id number] NPI:[id number] (D) IMMUNE [id number] 21:45:39 Test Item Value Reference Range Interpretation Comments RHIG CANDIDATE? (test Yes- see A Patien t is a code = 5055) comment candidate for RhIg- Patient i s Rh Negative and baby is Rh Positive.Perfor me d at [facility] Laboratory Services - [facility] Blood [address] [facility] [address]Euup Free: [phone] A No. [id number] Lab Interpretation Abnormal (test code = 19167-3) NPI:[id number] CORD [id number] 19:32:00 Test Item Value Reference Range Interpretation Comments BASE EXCESS, CORD mEq/L (test code = 8600383232) AC PH, CORD (BEAKER) 7.18-7.38 (test code = 6112629182) PC02, CORD (test code See_Comment [Auto mated message] The = 0317961705) system which g enerated this result transmit jordyn reference range : 32 - 66 mmHg. The refer ence range was not used to interpret this result as normal/abnormal . PO2, CORD (test code See_Comment [Autom ated message] The = 5052412056) system which g enerated this result transmit jordyn reference range : 10 - 30 mmHg. The refer ence range was not used to interpret this result as normal/abnormal . BICARBONATE, CORD See_Comment [Automate d message] The (test code = system which ge nerated this 5184941138) result transmit jordyn reference range : 17 - 27 mEq/L. The refe rence range was not used to interpret this result as normal/abnormal . NPI:[id number] CORD [id number] 19:29:00 Test Item Value Reference Range Interpretation Comments VENOUS BASE EXCESS, CORD mEq/L (test code = 9063590132) VENOUS PH, CORD (test 7.25-7.45 code = 6167580819) VENOUS PC02, CORD (test See_Comment H [Au tomated message] code = 9207490803) The syste m which generated this result transmitted ref erence range: 27 - 49 mmHg. The reference r jayden was not used to interpret this result as normal/abnor mal. VENOUS PO2, CORD (test See_Comment [Aut omated message] code = 6283891560) The syste m which generated this result transmitted ref erence range: 17 - 41 mmHg. The reference r jayden was not used to interpret this result as normal/abnor mal. VENOUS BICARBONATE, CORD See_Comment [A utomated message] (test code = 3647614998) The system which generated this result transmitted ref erence range: 12 - 29 mEq/L. The reference r jayden was not used to interpret this result as normal/abnor mal. Lab Interpretation (test Abnormal code = 55021-6) NPI:[id number] NON-STRESS [id number] 22:38:07GA: 36w1d Baseline: 140 bpmVariability: ModerateAccels: PresentDecels: NoneToco: Quiescent Interpreta tion: Reactive NST Venkata Velasquez MDNPI:[id number] ONLY - SYPHILIS [id number] 15:34:00 Test Item Value Reference Range Interpretation Comments Syphilis IgG/IgM (test Non-reactive Non-reactive code = 52088-0) ADRIEN (test code = ADRIEN) Non-reactive - No serologic evidence of T. pallidum infection. Cannot exclude incubating or early syphilis. Submit a second specimen in 2-4 weeks if syphilis is clinically suspected. Equivocal - Further testing to follow. Reactive - Further testing to follow. Lab Interpretation (test Normal code = 66378-4) NPI:[id number] NON-STRESS [id number] 15:29:34NST NOTE03/20/2019 GA: 36w4d Baseline: 145 bpmVariability: moderateAccels: presentDecels: noneToco: q uiescent Assessment: reactive and reassuringPlan: repeat as scheduled Amira Sierra MDNPI:[id number] 1/2 AG-AB WITH [id number] 15:21:00 Test Item Value Reference Range Interpretation Comments HIV Negative Negative Semi-quantitative (test code = 24015-9) ADRIEN (test code = Non-reactive for HIV-1 ADRIEN) antigen and HIV-1/HIV-2 antibodies. ?No laboratory evidence of HIV infection. ?Repeat in 2-4 weeks if acute HIV infection is suspected. NPI:[id number] B SURFACE [id number] 12:32:00 Test Item Value Reference Range Interpretation Comments HBsAg Semi-Quantitative (test code = Negative Negative 5195-3) NPI:[id number] and Screen - ONCE [id number] 19:42:01 Test Item Value Reference Range Interpretation Comments ABO & RH (test code O NEGATIVE Performe d at [facility] = 20) Laboratory Serv [facility] [address] [place] [id number] Free: [phone] A No. [id number] IAT (test code = Positive Performed a t [facility] 1185) Laboratory Serv [facility] [address] [place] [address] s [id number] Free: [phone] A No. [id number] NPI:[id number] NON-STRESS [id number] 19:12:20GA: 36w6d Baseline: 140 bpmVariability: ModerateAccels: PresentDecels: NoneToco: Quiescent Interpreta tion: Reactive NST Venkata Velasquez MDNPI:[id number] R/O PANEL 2019-03-22 12:44:23 Test Item Value Reference Range Interpretation Comments ANTIBODY (test Anti-D Probable RHIG recei nessa on code = 683) RhIg 01/30/19[facility] [address]Joni [address]deron [id number] Free: [phone] A No. [id number] NPI:[id number] NON-STRESS [id number] 22:57:49GA: 36w5d Baseline: 140 bpmVariability: ModerateAccels: PresentDecels: NoneToco: Quiescent Interpreta tion: Reactive NST Venkata Vleasquez MDNPI:[id number] NON-STRESS TEST 2019-03-21 14:57:12NST NOTE03/19/2019 3:49 PM GA: 36w3d Baseline: 150Variability: ModerateAccels: +Decels: NoneToco: Quiescent Assessment: Reactive and reassuringPlan: Repeat as scheduled Azalia Barber MDNPI:[id number] & CHLAMYDIA AMPLIFIED [id number] 17:34:00 Test Item Value Reference Range Interpretation Comments C. trachomatis Nucleic Acid (test Negative Negative code = 77268-1) N. gonorrhoeae Nucleic Acid (test Negative Negative code = 41402-1) Lab Interpretation (test code = Normal 90041-7) NPI:[id number] NON-STRESS [id number] 19:45:35NST NOTE03/18/2019 GA: 36w2d Baseline: 150 bpmVariability: moderateAccels: presentDecels: noneToco: qu iescent Assessment: reactive and reassuringPlan: repeat as scheduled Amira Sierra MD NST reviewed, FHR 150s, moderate variability noted, category I, no contractions.NPI:[id number] B STREPTOCOCCUS BY [id number] 19:21:00 Test Item Value Reference Range Interpretation Comments Group B Streptococcus by PCR (test Positive Negative A code = 39449-9) Lab Interpretation (test code = Abnormal 38609-6) NPI:[id number] B STREPTOCOCCUS BY [id number] 16:52:00 Test Item Value Reference Range Interpretation Comments Group B Streptococcus by PCR (test Positive Negative A code = 56731-6) Lab Interpretation (test code = Abnormal 65557-9) NPI:[id number]-C R/O [id number] 13:29:10 Test Item Value Reference Range Interpretation Comments ANTIBODY (test Anti-D Probable RhIg recei nessa on code = 683) RhIg 01/30/19.Perfor med at [facility] Vfvr754 [facility] s [address]Vfir Free: [phone] A No. [id number] NPI:[id number] and Screen - ONCE [id number] 12:11:02 Test Item Value Reference Range Interpretation Comments ABO & RH (test code O NEGATIVE Performe d at [facility] = 20) Laboratory Serv [facility] Blood [facility]3 01 [facility] s [address]Amam Free: [phone] A No. [id number] IAT (test code = Positive Performed a t [facility] 1185) Laboratory Serv [facility] Blood [facility]3 01 [facility] s [address]Zkcg Free: [phone] A No. [id number] NPI:[id number] U 24 [id number] 07:08:00 Test Item Value Reference Range Interpretation Comments T. VOL U (test code 2525 mL = 8009686241) HR COLLECT (test Hours code = 7360104118) CREAT U (test code = 69.5 mg/dL 0328500684) CREA U/24H (test See_Comment [Automated message] code = 9975764913) The syste m which generated this result transmitted ref erence range: 0.8 - 1. 8 g/24H. The reference r jayden was not used to int erpret this result as normal/abnormal . NPI:[id number] Quant U/[id number] 07:00:00 Test Item Value Reference Range Interpretation Comments T. VOL U (test code = 2525 mL 2960638696) HR COLLECT (test code = Hours 2505903273) T. PROT U (test code = 12 mg/dL 2888-6) PRO U/24HR (test code = See_Comment H [Au tomated message] 4946296620) The system I[employer] generated this result transmitted ref erence range: <150 mg/ 24h. The reference r jayden was not used to interpret this result as normal/abnor mal. Lab Interpretation (test Abnormal code = 88468-3) NPI:[id number] 22:11:00 Test Item Value Reference Range Interpretation Comments URINE CULTURE (test 10,000 - 100,000 CFU/mL code = 630-4) mixed aerobic organisms - suggests endogenous microbial contamination NPI:[id number] 20:42:00 Test Item Value Reference Range Interpretation Comments FREE T3 (test code = 3678316626) 3.95 pg/mL 2.77-5.27 Lab Interpretation (test code = Normal 10835-8) NPI:[id number] STIMULATING [id number] 18:56:00 Test Item Value Reference Range Interpretation Comments TSH (test code = See_Comment L Biotin has been 9122750451) reported to cau se a negative bias, interpret resul ts relative to pat elma's use of biotin. [Automated mess age] The system I[employer] generated this result transmitted ref erence range: 0.45 - 4 .70 mIU/L. The refe rence range was not u sed to interpret this result as normal/abnor mal. Lab Interpretation (test Abnormal code = 25066-9) NPI:[id number] 18:32:00 Test Item Value Reference Range Interpretation Comments FREE T4 (test code = See_Comment L [Autom ated message] 6783757697) The system [employer] generated this result transmitted ref erence range: 0.78 - 2 .20 ng/dL:. The ref erence range was not u sed to interpret this result as normal/abnor mal. Lab Interpretation (test Abnormal code = 61540-7) NPI:[id number] Acid [id number] 03:38:00 Test Item Value Reference Range Interpretation Comments URIC ACID (test code = 6305534100) 6.7 mg/dL 2.9-6 H Lab Interpretation (test code = Abnormal 93158-9) NPI:[id number] [id number] 03:38:00 Test Item Value Reference Range Interpretation Comments CREATININE (test code = 0.49 mg/dL 0.5-1.04 L 4854998385) eGFR Calculation mL/min/1.73m2 (Non-) (test code = 9333663066) eGFR Calculation mL/min/1.73m2 () (test code = 3454556952) ADRIEN (test code = ADRIEN) Association of Glomerular Filtration Rate (GFR) and Staging of Kidney Disease* + --+ --+ ------+| GFR (mL/min/1.73 m2) ?| With Kidney Damage ?| ?Without Kidney Damage+ --------+ --------+ +| ?>90 ?| ?Stage one ?| ? Normal ?+ ---+ ---+ -------+| ?60-89 ?| ?Stage two ?| ? Decreased GFR ? + --+ --+ ------+| ?30-59 ?| ?Stage three ?| ? Stage three ? + --+ --+ ------+| ?15-29 ?| ?Stage four ? | ? Stage four ?+ ---+ ---+ -------+| ?<15 (or dialysis) ? ?| ?Stage five ? | ? Stage five ?+ ---+ ---+ -------+ *Each stage assumes the associated GFR level has been in effect for at least three months. ?Stages 1 to 5, with or without kidney disease, indicate chronic kidney disease. Notes: Determination of stages one and two (with eGFR >59mL/min/1.73 m2) requires estimation of kidney damage for at least three months as defined by structural or functional abnormalities of the kidney, manifested by either:Pathological abnormalities or Markers of kidney damage (including abnormalities in the composition of the blood or urine or abnormalities in imaging tests). Lab Interpretation Abnormal (test code = 00818-8) NPI:[id number] (Asparate Amino Transfer)2019-03-17 03:38:00 Test Item Value Reference Range Interpretation Comments AST(SGOT) (test code = 1754437175) 17 U/L 13-40 Lab Interpretation (test code = Normal 81298-0) NPI:[id number] Amino Transferase (SGPT)2019-03-17 03:38:00 Test Item Value Reference Range Interpretation Comments ALTv (test code = 1742-6) 8 U/L 5-35 Lab Interpretation (test code = Normal 49893-8) NPI:[id number] Nobasqfkvkuvd1121-00-40 03:38:00 Test Item Value Reference Range Interpretation Comments LDH (test code = 2714300953) 507 U/L 300-600 Lab Interpretation (test code = Normal 81043-0) NPI:[id number] 03:02:00 Test Item Value Reference Range Interpretation Comments APPEARANCE (test code = Cloudy Clear A 9011561141) COLOR (test code = Yellow Yellow 6937194900) PH (test code = 4.8-8.0 5597021260) SP GRAVITY (test code = 1.003-1.030 4480376072) GLU U QUAL (test code = Normal Normal 4913585073) BLOOD (test code = Negative Negative 6926815922) KETONES (test code = Negative Negative 6099492561) PROTEIN (test code = 30 mg/dL Negative A 2887-8) UROBILIN (test code = 2.0 mg/dL Normal A 0716321291) BILIRUBIN (test code = Negative Negative 1113500941) NITRITE (test code = Negative Negative 5358483881) LEUK MERY (test code = 500/uL Negative A 7712900773) RBC/HPF (test code = See_Comment [Autom ated message] 5257360706) The system Izzui generated this result transmit jordyn reference range : 0 - 3 HPF. The refe rence range was not u sed to interpret th is result as normal/abnormal . WBC/HPF (test code = See_Comment [Autom ated message] 5205950171) The system [employer] generated this result transmit jordyn reference range : 0 - 5 HPF. The refe rence range was not u sed to interpret th is result as normal/abnormal . BACTERIA (test code = Moderate Negative A 1750793193) MUCOUS (test code = Slight Negative LPF A 5751588579) SQ EPITH (test code = See_Comment H [Auto mated message] 7505978086) The system I[employer] generated this result transmit jordyn reference range : <=2 HPF. The refere nce range was not u sed to interpret th is result as normal/abnormal . Lab Interpretation (test Abnormal code = 26596-8) NPI:[id number] CREAT Ratio Urine [id number] 02:34:00 Test Item Value Reference Range Interpretation Comments T. PROT U (test code = 2888-6) 19 mg/dL CREAT U (test code = 7557953562) 102.8 mg/dL Protein/Creatinine Ratio Urine 0.0-2.0 (test code = 3877799338) NPI:[id number] WITH [id number] 02:27:00 Test Item Value Reference Range Interpretation Comments WBC (test code = See_Comment [Automated 6690-2) message] The sy stem which generated this result transmitted reference range : 4.30 - 11.10 10*3/?L. The reference range was not used to interpret this result as normal/abnormal . RBC (test code = See_Comment [Automated 789-8) message] The sy stem which generated this result transmitted reference range : 3.93 - 5.25 10*6/?L. The reference range was not used to interpret this result as normal/abnormal . HGB (test code = 9.1 g/dL 11.6-15 L 718-7) HCT (test code = 30.4 % 35.7-45.2 L 4544-3) MCV (test code = 74.0 fL 80.6-95.5 L 787-2) MCH (test code = 22.1 pg 25.9-32.8 L 785-6) MCHC (test code = 29.9 g/dL 31.6-35.1 L 786-4) RDW-SD (test code = 50.0 fL 39-49.9 H 93570-1) RDW-CV (test code = 18.8 % 12-15.5 H 788-0) PLT (test code = See_Comment [Automated 777-3) message] The sy stem which generated this result transmitted reference range : 166 - 358 10*3/ ?L. The reference r jayden was not used to interpret this result as normal/abnormal . MPV (test code = 10.9 fL 9.5-12.9 70818-2) NRBC/100 WBC (test See_Comment [Automat ed code = 9698287744) message] The system which generated this result transmitted reference range : 0.0 - 10.0 /100 WBCs. The refer ence range was not u sed to interpret th is result as normal/abnormal . NRBC x10^3 (test code See_Comment [Auto mated = 0307606099) message] The s ystem which generated this result transmitted reference range : 10*3/?L. The reference range was not used to interpret this result as normal/abnormal . GRAN MAT (NEUT) % 74.9 % (test code = 770-8) IMM GRAN % (test code 0.90 % = 7779129840) LYMPH % (test code = 14.8 % 736-9) MONO % (test code = 8.9 % 5905-5) EOS % (test code = 0.4 % 713-8) BASO % (test code = 0.1 % 706-2) GRAN MAT x10^3(ANC) 8.03 10*3/uL 1.88-7.09 H (test code = 0498867787) IMM GRAN x10^3 (test 0.10 10*3/uL 0-0.06 H code = 6982251992) LYMPH x10^3 (test code 1.58 10*3/uL 1.32-3.29 = 731-0) MONO x10^3 (test code 0.95 10*3/uL 0.33-0.92 H = 742-7) EOS x10^3 (test code = 0.04 10*3/uL 0.03-0.39 711-2) BASO x10^3 (test code <0.03 0.01-0.07 = 704-7) Lab Interpretation Abnormal (test code = 63770-0) NPI:[id number] NON-STRESS [id number] 21:07:48Reactive nst, ctxs X 1 NPI:[id number] NON-STRESS [id number] 21:07:48Reactive nst, ctxs X 1 NPI:[id number] URINALYSIS W SPECIFIC [id number] 20:19:00 Test Item Value Reference Range Interpretation Comments POCT U SP GRAV (test code = . 1.005-1.025 3255) POCT PH U (test code = 3254) . 5-8 POCT U LEUK EST (test code = . Negative - Negative 3263) POCT U NIT (test code = 3262) . Negative - Negative POCT U PROT (test code = 3259) 1+ Negative - Negative POCT U GLU (test code = 3256) negative Negative - Negative POCT U KETONE (test code = 3258) . Negative - Negative POCT U UROBILI (test code = . 0.2-1 3260) POCT U BILI (test code = 3261) . Negative - Negative POCT U BLD (test code = 3257) . Negative - Negative POCT U COLOR (test code = 3266) POCT U APPEAR (test code = 3267) NPI:[id number] URINALYSIS W SPECIFIC [id number] 20:19:00 Test Item Value Reference Range Interpretation Comments POCT U SP GRAV (test code = . 1.005-1.025 3255) POCT PH U (test code = 3254) . 5-8 POCT U LEUK EST (test code = . Negative - Negative 3263) POCT U NIT (test code = 3262) . Negative - Negative POCT U PROT (test code = 3259) 1+ Negative - Negative POCT U GLU (test code = 3256) negative Negative - Negative POCT U KETONE (test code = 3258) . Negative - Negative POCT U UROBILI (test code = . 0.2-1 3260) POCT U BILI (test code = 3261) . Negative - Negative POCT U BLD (test code = 3257) . Negative - Negative POCT U COLOR (test code = 3266) POCT U APPEAR (test code = 3267) NPI:[id number] URINALYSIS W SPECIFIC [id number] 20:11:00 Test Item Value Reference Range Interpretation Comments POCT U SP GRAV (test code = 3255) n/a 1.005-1.025 POCT PH U (test code = 3254) n/a 5-8 POCT U LEUK EST (test code = 3263) n/a Negative - Negative POCT U NIT (test code = 3262) n/a Negative - Negative POCT U PROT (test code = 3259) trace Negative - Negative POCT U GLU (test code = 3256) neg Negative - Negative POCT U KETONE (test code = 3258) n/a Negative - Negative POCT U UROBILI (test code = 3260) n/a 0.2-1 POCT U BILI (test code = 3261) n/a Negative - Negative POCT U BLD (test code = 3257) n/a Negative - Negative POCT U COLOR (test code = 3266) POCT U APPEAR (test code = 3267) NPI:[id number] URINALYSIS W SPECIFIC [id number] 20:11:00 Test Item Value Reference Range Interpretation Comments POCT U SP GRAV (test code = 3255) n/a 1.005-1.025 POCT PH U (test code = 3254) n/a 5-8 POCT U LEUK EST (test code = 3263) n/a Negative - Negative POCT U NIT (test code = 3262) n/a Negative - Negative POCT U PROT (test code = 3259) trace Negative - Negative POCT U GLU (test code = 3256) neg Negative - Negative POCT U KETONE (test code = 3258) n/a Negative - Negative POCT U UROBILI (test code = 3260) n/a 0.2-1 POCT U BILI (test code = 3261) n/a Negative - Negative POCT U BLD (test code = 3257) n/a Negative - Negative POCT U COLOR (test code = 3266) POCT U APPEAR (test code = 3267) NPI:[id number] URINALYSIS W SPECIFIC [id number] 20:11:00 Test Item Value Reference Range Interpretation Comments POCT U SP GRAV (test code = 3255) n/a 1.005-1.025 POCT PH U (test code = 3254) n/a 5-8 POCT U LEUK EST (test code = 3263) n/a Negative - Negative POCT U NIT (test code = 3262) n/a Negative - Negative POCT U PROT (test code = 3259) trace Negative - Negative POCT U GLU (test code = 3256) neg Negative - Negative POCT U KETONE (test code = 3258) n/a Negative - Negative POCT U UROBILI (test code = 3260) n/a 0.2-1 POCT U BILI (test code = 3261) n/a Negative - Negative POCT U BLD (test code = 3257) n/a Negative - Negative POCT U COLOR (test code = 3266) POCT U APPEAR (test code = 3267) NPI:[id number] URINALYSIS W/O SPECIFIC [id number] 21:34:00 Test Item Value Reference Range Interpretation Comments POCT PH U (test code = 3254) * 5-8 POCT U LEUK EST (test code = * Negative - Negative 3263) POCT U NIT (test code = 3262) * Negative - Negative POCT U PROT (test code = 3259) trace Negative - Negative POCT U GLU (test code = 3256) Negative Negative - Negative POCT U KETONE (test code = 3258) * Negative - Negative POCT U BLD (test code = 3257) * Negative - Negative NPI:[id number] ANTICOAGULANT [id number] 14:14:00 Test Item Value Reference Range Interpretation Comments PROTIME PATIENT See_Comment [Automated (test code = 5964-2) message ] The system which generated this result transmitted reference range : 10.1 - 12.6 Seconds. The reference range was not used to interpret this result as normal/abnormal . PTT-LA (test code = See_Comment [Autom ated 7249207165) message] The system which generated this result transmitted reference range : 30 - 46 Seconds . The reference range was not used to interpret this result as normal/abnormal . DRVVT SCREEN (test See_Comment [Automat ed code = 8695863736) message] The system which generated this result transmitted reference range : 32.6 - 44.1 Seconds. The reference range was not used to interpret this result as normal/abnormal . ADRIEN (test code = "Lupus screening ADRIEN) does not show evidence of Lupus Anticoagulant. However, false negatives could occur. Reference: Arnold V, etc: Update of the guidelines for lupus anticoagulant detection. J. Thromb Haemost?2009;7:1737 -40" Lab Interpretation Normal (test code = 16203-6) NPI:[id number]-G2 GLYCOPROTEIN I [id number] 01:35:00 Test Item Value Reference Interpretation Comments Range Anti-B2 See_Comment [Automated Glycoprotein 1 IgG message] The (test code = system which 1366473921) generated this result transmitted reference range : 0.0 - 20.0 SGU. The reference range was not used to interpret this result as normal/abnormal . Anti-B2 See_Comment [Automated Glycoprotein 1 IgM message] The (test code = system which 9980066448) generated this result transmitted reference range : 0.0 - 20.0 SMU. The reference range was not used to interpret this result as normal/abnormal . Anti-B2 See_Comment [Automated Glycoprotein 1 IgA message] The (test code = system which 0979710247) generated this result transmitted reference range : 0.0 - 20.0 HOANG. The reference range was not used to interpret this result as normal/abnormal . ADRIEN (test code = INTERPRETATION:Values ADRIEN) over 20 SGU, SMU, or HOANG units are considered positive.NOTE:A positive test for anti-B2 Glycoprotein I antibodies may indicate the presence of Antiphospholipid Syndrome.?Anti-B2 Glycoprotein I antibodies have been associated with thrombosis, recurrent losses and/or thrombocytopenia.TEST PERFORMED AT:[facility]. [address] [place] [address] Lab Interpretation Normal (test code = 25955-5) NPI:[id number] [id number] 01:35:00 Test Item Value Reference Interpretation Comments Range Anticardiolipin See_Comment [Automated Antibody IgG (test message] The code = 2949326922) system [facility] generated this result transmitted reference range: 0.0 - 10.0 GPL. The reference range was not used to interpret this result as normal/abnormal . Anticardiolipin See_Comment [Automated Antibody IgM (test message] The code = 1787465474) system [facility] generated this result transmitted reference range: 0.0 - 10.0 MPL. The reference range was not used to interpret this result as normal/abnormal . Anticardiolipin See_Comment [Automated Antibody IgA (test message] The code = 8765933162) system [facility] generated this result transmitted reference range: 0.0 - 15.0 APL. The reference range was not used to interpret this result as normal/abnormal . ADRIEN (test code = Interpretation:? ADRIEN) IgG?IgM?IgANegative Values:? <10.0?<10.0? <15.0Indeterminate ("Nelson" zone) Values:?10.0-19.0?10.0- 25.0? 15.0-27.0Medium Values:? 20.0-80.0?26.0-80.0? 28.0-80.0High Positive Values:? >80.0?>80.0? >80.0Note:Medium-high levels of anticardiolipin antibodies (mainly of the IgG isotype)have been associated with thrombosis, recurrent losses andthrombocytopenia in patients with Antiphospholipid Syndrome and SLE relateddisorders.It is recommended to repeat the test that give values in theIndeterminate "Nelson" zone range at a later date (i.e. 4-6 weeks) to confirmpositivity.?Len R et al.?J Thromb Haemost 2006; 4: 2210-4 Lab Interpretation Normal (test code = 27731-4) NPI:[id number]-[id number] GLYCOPROTEIN I [id number] 01:35:00 Test Item Value Reference Interpretation Comments Range Anti-B2 See_Comment [Automated Glycoprotein 1 IgG message] The (test code = system which 5856948569) generated this result transmitted reference range : 0.0 - 20.0 SGU. The reference range was not used to interpret this result as normal/abnormal . Anti-B2 See_Comment [Automated Glycoprotein 1 IgM message] The (test code = system which 9751061257) generated this result transmitted reference range : 0.0 - 20.0 SMU. The reference range was not used to interpret this result as normal/abnormal . Anti-B2 See_Comment [Automated Glycoprotein 1 IgA message] The (test code = system which 5006987086) generated this result transmitted reference range : 0.0 - 20.0 HOANG. The reference range was not used to interpret this result as normal/abnormal . ADRIEN (test code = INTERPRETATION:Values ADRIEN) over 20 SGU, SMU, or HOANG units are considered positive.NOTE:A positive test for anti-B2 Glycoprotein I antibodies may indicate the presence of Antiphospholipid Syndrome.?Anti-B2 Glycoprotein I antibodies have been associated with thrombosis, recurrent losses and/or thrombocytopenia.TEST PERFORMED AT:[facility]. [address] [place] [address].[place] [address] Lab Interpretation Normal (test code = 43908-0) NPI:[id number] [id number] 01:35:00 Test Item Value Reference Interpretation Comments Range Anticardiolipin See_Comment [Automated Antibody IgG (test message] The code = 0796649177) system [facility] generated this result transmitted reference range: 0.0 - 10.0 GPL. The reference range was not used to interpret this result as normal/abnormal . Anticardiolipin See_Comment [Automated Antibody IgM (test message] The code = 3981807875) system [facility] generated this result transmitted reference range: 0.0 - 10.0 MPL. The reference range was not used to interpret this result as normal/abnormal . Anticardiolipin See_Comment [Automated Antibody IgA (test message] The code = 9220821527) system [facility] generated this result transmitted reference range: 0.0 - 15.0 APL. The reference range was not used to interpret this result as normal/abnormal . ADRIEN (test code = Interpretation:? ADRIEN) IgG?IgM?IgANegative Values:? <10.0?<10.0? <15.0Indeterminate ("Nelson" zone) Values:?10.0-19.0?10.0- 25.0? 15.0-27.0Medium Values:? 20.0-80.0?26.0-80.0? 28.0-80.0High Positive Values:? >80.0?>80.0? >80.0Note:Medium-high levels of anticardiolipin antibodies (mainly of the IgG isotype)have been associated with thrombosis, recurrent losses andthrombocytopenia in patients with Antiphospholipid Syndrome and SLE relateddisorders.It is recommended to repeat the test that give values in theIndeterminate "Nelson" zone range at a later date (i.e. 4-6 weeks) to confirmpositivity.?Len Davies et al.?J Thromb Haemost 2006; 4: 2210-4 Lab Interpretation Normal (test code = 57925-8) NPI:[id number] URINALYSIS W/O SPECIFIC [id number] 15:20:00 Test Item Value Reference Range Interpretation Comments POCT PH U (test code = 3254) 5 mg/dl 5-8 POCT U LEUK EST (test code = neg Negative - Negative 3263) POCT U NIT (test code = 3262) neg Negative - Negative POCT U PROT (test code = 3259) trace Negative - Negative POCT U GLU (test code = 3256) neg Negative - Negative POCT U KETONE (test code = 3258) neg Negative - Negative POCT U BLD (test code = 3257) neg Negative - Negative Lab Interpretation (test code = Abnormal 31461-5) NPI:[id number] URINALYSIS W/O SPECIFIC [id number] 15:20:00 Test Item Value Reference Range Interpretation Comments POCT PH U (test code = 3254) 5 mg/dl 5-8 POCT U LEUK EST (test code = neg Negative - Negative 3263) POCT U NIT (test code = 3262) neg Negative - Negative POCT U PROT (test code = 3259) trace Negative - Negative POCT U GLU (test code = 3256) neg Negative - Negative POCT U KETONE (test code = 3258) neg Negative - Negative POCT U BLD (test code = 3257) neg Negative - Negative Lab Interpretation (test code = Abnormal 78503-5) NPI:[id number] URINALYSIS W/O SPECIFIC [id number] 15:20:00 Test Item Value Reference Range Interpretation Comments POCT PH U (test code = 3254) 5 mg/dl 5-8 POCT U LEUK EST (test code = neg Negative - Negative 3263) POCT U NIT (test code = 3262) neg Negative - Negative POCT U PROT (test code = 3259) trace Negative - Negative POCT U GLU (test code = 3256) neg Negative - Negative POCT U KETONE (test code = 3258) neg Negative - Negative POCT U BLD (test code = 3257) neg Negative - Negative Lab Interpretation (test code = Abnormal 50258-8) NPI:[id number] URINALYSIS W/O SPECIFIC [id number] 15:20:00 Test Item Value Reference Range Interpretation Comments POCT PH U (test code = 3254) 5 mg/dl 5-8 POCT U LEUK EST (test code = neg Negative - Negative 3263) POCT U NIT (test code = 3262) neg Negative - Negative POCT U PROT (test code = 3259) trace Negative - Negative POCT U GLU (test code = 3256) neg Negative - Negative POCT U KETONE (test code = 3258) neg Negative - Negative POCT U BLD (test code = 3257) neg Negative - Negative Lab Interpretation (test code = Abnormal 71842-1) NPI:[id number] URINALYSIS W/O SPECIFIC [id number] 15:20:00 Test Item Value Reference Range Interpretation Comments POCT PH U (test code = 3254) 5 mg/dl 5-8 POCT U LEUK EST (test code = neg Negative - Negative 3263) POCT U NIT (test code = 3262) neg Negative - Negative POCT U PROT (test code = 3259) trace Negative - Negative POCT U GLU (test code = 3256) neg Negative - Negative POCT U KETONE (test code = 3258) neg Negative - Negative POCT U BLD (test code = 3257) neg Negative - Negative Lab Interpretation (test code = Abnormal 13539-8)
[2021-06-17] MEDS ORDERED: KETOROLAC 30 MG/ML INJ ONE (09:39)
[2021-06-17] MEDS ORDERED: NA CHLORIDE 0.9% 1,000 ML ONE (09:39)
[2021-06-17 09:40] LABS: Absolute Lymphocytes (CBC) 1.6 K/uL (0.7-4.9); Hematocrit 38.4 % (36.0-45.0); Lymphocytes % 12.5 % (15.3-44.8); MPV 7.4 fL (7.6-11.3); RBC Red Blood Cell Count 5.29 M/uL (3.86-4.86)
[2021-06-17 10:08] LABS: Potassium 3.6 mmol/L (3.5-5.1)
--- NOTE | 2021-06-17 13:27 | EDPHYS ---
Physician Documentation [facility] Name: Monae Mccallum Age: 26 yrs Sex: Female : 1995 Arrival Date: 06/17/2021 Time: 08:37 Bed 12 Private MD: ED Physician Devon Guevara HPI: 06/17 09:45 This 26 yrs old Black Female presents to ER via Ambulatory with complaints of kdr bodyaches, chills, Ear Pain, Headache. 09:45 Patient states that over the weekend she started to feel poorly. Wednesday she was had kdr generalized aches and pains and yesterday she began to have fever. She states her max fever was 101.6. Today she has not had a fever but was generally achy and hurting all over. She is otherwise been well. She denies nausea vomiting or diarrhea.. Onset: The symptoms/episode began/occurred gradually, 3 day(s) ago. Severity of symptoms: At their worst the symptoms were mild in the emergency department the symptoms are unchanged. The patient has not experienced similar symptoms in the past. The patient has not recently seen a physician. 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 - Social history:: Smoking status: Patient denies any tobacco usage or history of. ROS: 09:45 Constitutional: Patient has had fever and chills. Eyes: Negative for injury, pain, kdr redness, and discharge, Neck: Negative for injury, pain, and swelling, Cardiovascular: Negative for chest pain, palpitations, and edema, Respiratory: Negative for shortness of breath, cough, wheezing, and pleuritic chest pain, Abdomen/GI: Negative for abdominal pain, nausea, vomiting, diarrhea, and constipation, Back: Negative for injury and pain, : Negative for injury, bleeding, discharge, and swelling, MS/Extremity: Negative for injury and deformity, Skin: Negative for injury, rash, and discoloration, Neuro: Negative for headache, weakness, numbness, tingling, and seizure activity. Psych: Negative for depression, anxiety, suicide ideation, homicidal ideation, and hallucinations, Allergy/Immunology: Negative for hives, rash, and allergies, Endocrine: Negative for neck swelling, polydipsia, polyuria, polyphagia, and marked weight changes, Hematologic/Lymphatic: Negative for swollen nodes, abnormal bleeding, and unusual bruising. 09:45 Constitutional: Positive for body aches, chills, fatigue, fever, malaise. Exam: 09:45 Constitutional: This is a well developed, well nourished patient who is awake, alert, kdr and in no acute distress. Head/Face: Normocephalic, atraumatic. Eyes: Pupils equal round and reactive to light, extra-ocular motions intact. Lids and lashes normal. Conjunctiva and sclera are non-icteric and not injected. Cornea within normal limits. Periorbital areas with no swelling, redness, or edema. Neck: Trachea midline, no thyromegaly or masses palpated, and no cervical lymphadenopathy. Supple, full range of motion without nuchal rigidity, or vertebral point tenderness. No Meningismus. Chest/axilla: Normal chest wall appearance and motion. Nontender with no deformity. No lesions are appreciated. Cardiovascular: Regular rate and rhythm with a normal S1 and S2. No gallops, murmurs, or rubs. Normal PMI, no JVD. No pulse deficits. Respiratory: Lungs have equal breath sounds bilaterally, clear to auscultation and percussion. No rales, rhonchi or wheezes noted. No increased work of breathing, no retractions or nasal flaring. Abdomen/GI: Soft, non-tender, with normal bowel sounds. No distension or tympany. No guarding or rebound. No evidence of tenderness throughout. Back: No spinal tenderness. No costovertebral tenderness. Full range of motion. Skin: Warm, dry with normal turgor. Normal color with no rashes, no lesions, and no evidence of cellulitis. MS/ Extremity: Pulses equal, no cyanosis. Neurovascular intact. Full, normal range of motion. Neuro: Awake and alert, GCS 15, oriented to person, place, time, and situation. Cranial nerves II-XII grossly intact. Motor strength 5/5 in all extremities. Sensory grossly intact. Cerebellar exam normal. Normal gait. Psych: Awake, alert, with orientation to person, place and time. Behavior, mood, and affect are within normal limits. Vital Signs: 08:46 BP 129 / 87; Pulse 100; Resp 16; Temp 97.2; Pulse Ox 98% ; iw MDM: 10:43 Data reviewed: vital signs, nurses notes, lab test result(s), radiologic studies. kdr Counseling: I had a detailed discussion with the patient and/or guardian regarding: the historical points, exam findings, and any diagnostic results supporting the discharge/admit diagnosis, lab results, radiology results, the need for outpatient follow up. ED course: Patient continues to be stable in the ED. Still awaiting her COVID result. Flu is negative. He otherwise is without acute illness evident by laboratory evaluation. 13:26 Patient medically screened. [facility] 06/17 09:18 Order name: CBC with Diff; Complete Time: 09:44 kdr 06/17 09:18 Order name: Chem 7; Complete Time: 10:12 kdr 06/17 09:19 Order name: Influenza Screen (a \\T\\ B); Complete Time: 11:54 bd 06/17 09:23 Order name: COVID-19 SARS RT PCR (Document "Date of Onset" if Symptomatic) bd 06/17 09:23 Order name: Influenza Screen (A ; Complete Time: 10:43 EDND 06/17 12:58 Order name: Strep; Complete Time: 13:29 iw Administered Medications: 09:41 Drug: NS 0.9% 1000 ml Route: IV; Rate: 1 bolus; Site: right antecubital; iw 10:40 Follow up: IV Status: Completed infusion iw 09:41 Drug: Ketorolac 15 mg Route: IVP; Site: right antecubital; iw 10:16 Follow up: Response: No adverse reaction; Pain is decreased iw 13:40 Drug: Amoxicillin 500 mg Route: PO; iw 13:50 Follow up: Response: No adverse reaction iw Disposition Summary: 06/17/21 13:26 Discharge Ordered Location: Home kdr Problem: new kdr Symptoms: have improved kdr Condition: Stable kdr Diagnosis - Streptococcal pharyngitis kdr - Streptococcal tonsillitis kdr Followup: kdr - With: Private Physician - When: 2 - 3 days - Reason: If symptoms return, Further diagnostic work-up, Recheck today's complaints, Continuance of care, Re-evaluation by your physician Discharge Instructions: - Discharge Summary Sheet kdr - Pharyngitis kdr - Sore Throat kdr - Strep Throat, Adult, [id number] kdr Forms: - Medication Reconciliation Form kdr - Thank You Letter kdr - Antibiotic Education kdr - Work release form iw Prescriptions: - Amoxicillin 500 mg Oral Capsule - take 1 capsule by ORAL route every 8 hours for 10 days; 30 tablet; Refills: 0, kdr Product Selection Permitted - Tylenol-Codeine #3 300 mg-30 mg Oral - take 1 tablet by ORAL route every 4-6 hours As needed; 12 tablet; Refills: 0, kdr Product Selection Permitted Signatures: Dispatcher [employer] Devon Jacinto MD MD kdr Sandra Fortune RN RN iw
--- NOTE | 2021-06-17 13:27 | ER ---
Nurse's Notes [facility] Name: Monae Mccallum Age: 26 yrs Sex: Female : 1995 Arrival Date: 06/17/2021 Time: 08:37 Bed 12 Private MD: Diagnosis: Streptococcal pharyngitis;Streptococcal tonsillitis Presentation: 06/17 08:46 Chief complaint: Patient states: my throat is hurting, ears hurting, head hurting, iw feels weak , yesterday had fever. Coronavirus screen: Client presents with at least one sign or symptom that may indicate coronavirus-19. Ebola Screen: Patient negative for fever greater than or equal to 101.5 degrees Fahrenheit, and additional compatible Ebola Virus Disease symptoms Patient denies exposure to infectious person. Patient denies travel to an Ebola-affected area in the 21 days before illness onset. No symptoms or risks identified at this time. Initial Sepsis Screen: Does the patient meet any 2 criteria? No. Patient's initial sepsis screen is negative. Does the patient have a suspected source of infection? No. Patient's initial sepsis screen is negative. Risk Assessment: Do you want to hurt yourself or someone else? Patient reports no desire to harm self or others. Onset of symptoms was June 15, 2021. 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 - Social history:: Smoking status: Patient denies any tobacco usage or history of. Screenin:50 Abuse screen: Denies threats or abuse. Denies injuries from another. Nutritional iw screening: No deficits noted. Tuberculosis screening: No symptoms or risk factors identified. Fall Risk None identified. Assessment: 08:49 General: Appears in no apparent distress. Behavior is calm, cooperative. Pain: iw Complains of pain in throat and head. Neuro: Mcduffie Agitation-Sedation Scale (RASS): 0 - Alert and Calm Level of Consciousness is awake, alert, obeys commands, Oriented to person, place, time, situation. Cardiovascular: Patient's skin is warm and dry. Respiratory: Respiratory effort is even, unlabored, Respiratory pattern is regular, symmetrical, Denies cough. EENT: Derm: Skin is intact, is healthy with good turgor. 10:04 Reassessment: Patient appears in no apparent distress at this time. Patient and/or iw family updated on plan of care and expected duration. Pain level reassessed. Patient is alert, oriented x 3, equal unlabored respirations, skin warm/dry/pink. Vital Signs: 08:46 BP 129 / 87; Pulse 100; Resp 16; Temp 97.2; Pulse Ox 98% ; iw ED Course: 08:37 Patient arrived in ED. am2 08:39 Devon Guevara MD is Attending Physician. kdr 08:48 Triage completed. iw 08:49 Sandra Fortune, RN is Primary Nurse. iw 08:49 Arm band placed on. iw 09:00 Inserted saline lock: 20 gauge in right antecubital area, using aseptic technique. iw Blood collected. IV inserted by MONIQUE Marlow. Administered Medications: 09:41 Drug: NS 0.9% 1000 ml Route: IV; Rate: 1 bolus; Site: right antecubital; iw 10:40 Follow up: IV Status: Completed infusion iw 09:41 Drug: Ketorolac 15 mg Route: IVP; Site: right antecubital; iw 10:16 Follow up: Response: No adverse reaction; Pain is decreased iw 13:40 Drug: Amoxicillin 500 mg Route: PO; iw 13:50 Follow up: Response: No adverse reaction iw Outcome: 13:26 Discharge ordered by . kdr 13:41 Patient left the ED. iw Signatures: Devon Guevara MD MD kdr Sandra Fortune, RN RN iw Diana Xiong am2 Corrections: (The following items were deleted from the chart) 08:48 08:46 Acuity: EMA 4 iw iw
[2021-06-17] MEDS ORDERED: AMOXICILLIN TRIHYDR 250 MG CAP ONE (13:40)
[2021-06-17 14:55] VITALS: BP 129/87; TEMP 97.2; O2SAT 98
== END 2021-06-17 13:41 | disposition home or self-care (01) ==
LOC: ER 08:30
DX: J03.00 Acute streptococcal tonsillitis, unspecified (principal); Z20.822 Contact with and (suspected) exposure to COVID-19; I10 Essential (primary) hypertension
CPT/HCPCS: 96361; 85025; 80048; 36415; 87081; 87804 ×2; 96374; 99283; U0003; J7030

== ENCOUNTER 2022-01-04 18:33 | Emergency (ER) | payer OTHER ==
--- OUTSIDE RECORDS SUMMARY | 2022-01-04 18:37 | XMS REPORT | Continuity of Care Document ---
:1995 Author Organization [facility] t Address [address] [place] [address] Care Team Providers Name Role Phone YARITZA STILES Primary Care Physician Unavailable IDA LUZ Attending Clinician Unavailable EbAnthony Giraldo Attending Clinician ANTHONY BRIONES Attending Clinician Unavailable Unknown, Attending Attending Clinician Unavailable Faby Stallings MD Attending Clinician FABY STALLINGS Attending Clinician Unavailable Yaritza Perales Attending Clinician YARITZA STILES Attending Clinician Unavailable Doctor Unassigned, [place] Attending Clinician Unavailable Prema Alfredo RN Attending Clinician Unavailable Garret Owen MD Attending Clinician GARRET OWEN Attending Clinician Unavailable Only, Ang Db Test Attending Clinician Unavailable Robb Peña DO Attending Clinician Visit, [facility] Nurse Attending Clinician Unavailable Janice Mars Attending Clinician [phone] Haley Baer MD Attending Clinician Risk, Puo-Vcrtc-Mw/High Attending Clinician Unavailable Georgette Montoya Attending Clinician Matthew DURANT, Luh Morejon Attending Clinician Unavailable Tong PANEL BEATER, Nessa Lieberman Attending Clinician Faculty, Steven Rai [facility] Attending Clinician Unavailable Navneet RICH, Ursula Max Attending Clinician Keyur RICH, Haley Admitting Clinician Payers Payer Name Policy Type Policy Number Effective Date Expiration Date [facility] [id number] 2018 [place]ICE [place] 00:00:00 Problems Condition Condition Condition Status Onset Resolution Last Treating Co mments Source Name Details Category Date Date Treatment Clinician Date Encounter Encounter Disease Active Uni vers for for 6-18 ity of surveill[place] ce of 00 Medical contracept contracept Br anch william, william, unspecifie unspecifie d d contracept contracept dina dina Elevated Elevated Disease Active Unive rs blood blood 6-18 ity of pressure pressure 00:00: [place] reading reading 00 Medical without without Branch diagnosis diagnosis of of hypertensi hypertensi on on Class 3 Class 3 Disease Active 2020- Univers severe severe 6-18 ity of obesity obesity 00:00: [place] with body with body 00 [facility] mass index mass index Br anch (BMI) of (BMI) of 40.0 to 40.0 to 44.9 in 44.9 in adult, adult, unspecifie unspecifie d obesity d obesity type, type, unspecifie unspecifie d whether d whether serious serious comorbidit comorbidit y present y present Disease Active 2020- U nivers care and care and 3-06 ity of examinatio examin[place] n n 00 Medical immediatel immediatel Br anch y after y after delivery delivery 37 weeks 37 weeks Disease Active Unive rs gestation gestation 2-13 ity of of of 00:00: [place] 00 [facility] Branch Bacterial Bacterial Disease Active Uni vers vaginosis vaginosis 2-10 ity of in in 00:00: [place] 00 [facility] Branch Group B Group B Disease Active Univers streptococ streptococ 2-10 it y of luis manuel luis manuel 00:00: [place] infection infection 00 Medi luis manuel during during Branch History of History of Disease Active U nivers bilateral bilateral 1-08 ity of tubal tubal 00:00: [place] ligation ligation 00 Medica l Branch Multiparit Multiparit Disease Active 2019- U nivers y y 1-06 ity of 00:00: [place] 00 Medical Branch Need for Need for Disease Active 2018-02 Unive rs prophylact prophylact 1-15 it y of ic ic 00:00: [place] vaccinatio vaccinatio 00 Me dical n against n against Bran ch rubella rubella alone alone BMI BMI Disease Active 2018-02 Univers 45.0-49.9, 45.0-49.9, 1-15 it y of adult adult 00:00: [place] 00 Medical Branch Gastroesop Gastroesop Disease Active 2018-02 U nivers hageal hageal 1-15 ity of reflux reflux 00:00: [place] disease disease 00 Medical without without Branch esophagiti esophagiti s s History of History of Disease Active 2018-02 U nivers repair of repair of 1-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 00:[place] atrial atrial 00 Medical septal septal Branch defect defect (ASD) (ASD) Chlamydia Chlamydia Disease Active 2018-02 Uni vers 0-14 ity of 00:00: [place] 00 Medical Branch Supervisio Supervisio Disease Active U nivers n of high n of high 6-26 ity of risk risk 00:00: [place] 00 Medi luis manuel in third in third Branch trimester trimester Three Three Disease Active Univers previous previous 6-26 ity of spontaneou spontaneou 00:[place] s s 00 Medical abortions abortions Bran ch (SAB) (SAB) affecting affecting care of care of mother, mother, antepartum antepartum , first , first trimester trimester History of History of Disease Active U nivers hypothyroi hypothyroi 6-26 it y of dism dism 00:00: [place] Medical Branch Rubella Rubella Disease Active 2017-02 Overview: Univ ers non-immune non-immune 0-03 Formattin ity of status, status, 00:00: g of this [place] antepartum antepartum 00 note Me dical might be Branch different from the original. Address in PP Morbid Morbid Disease Active Univers obesity obesity 5-19 ity of 00:00: [place] 00 [facility] Screening Screening Disease Active Uni vers examinatio examinatio 5-19 it y of n for STD n for STD 00:[place] (sexually (sexually 00 Medi luis manuel transmitte transmitte Br anch d disease) d disease) Sickle Sickle Disease Active Univers cell trait cell trait 2-18 it y of 00:00: [place] 00 [facility] Rh Rh Disease Active Overview: Univer s negative negative 10-10 Formattin ity of status status 00:00: g of this [place] during during 00 note Medical might be Br anch in first in first different trimester trimester from the original. IAT (+)- Rhogm 10/24/2014 Pre-eclamp Pre-eclamp Disease Active U nivers ben ben 10-08 ity of 00:00: [place] 00 [facility] Allergies, Adverse Reactions, Alerts Allergy Allergy Status Severity Reaction(s) Onset Inactive Treating Comm ents Source Name Type Date Date Clinician NO KNOWN Drug Active Univers ALLERGIE Class ity of S [facility] [place] [facility] Social History Social Habit Start Date Stop Date Quantity Comments Source Exposure to 2021-11-08 2021-11-18 Not sure [facility] SARS-CoV-2 00:00:00 17:57:00 [facility] (event) [place] Alcohol intake 2021-11-18 2021-11-18 0 /d University of 00:00:00 00:00:00 [facility] [place] [facility] Tobacco use and 2021-09-08 2021-09-08 Smokeless tobacco Un iversity of exposure 00:00:00 00:00:00 non-user [facility] [place] [facility] Education 2019-03-16 2019-03-16 21 University 00:00:00 00:00:00 [facility] [place] [facility] Sex Ass[birth year] At [birth year] Universit y of 00:00:00 00:00:00 [facility] [place] [facility] Smoking Status Start Date Stop Date Source Never smoked tobacco [facility] Medications Ordered Filled Start Stop Current Ordering Indication Dosage Frequency Signature Comments Components Source Medication Medication Date Date Medication? Clinician (SIG) Name Name ibuprofen 2021-02- No [id number] 800mg Uni vers (IBU) 11-18 ity of tablet 800 00:00: 23:09 [place] mg 00 :00 [facility] ibuprofen 2021-02- No 800mg 800 mg, Univers (IBU) 0-12 10-11 Oral, ity of tablet 800 00:00: 23:09 ONCE, 1 [place] mg 00 :00 dose, On Medical Tue Branch 11/18/21 at 1900, Routine methocarbam 2021-02- Yes 750mg Take 1 Univers oL 0-11 10-22 tablet by ity of (ROBAXIN-75 00:00: 04:59 mouth 4 [place] 0[place] 750 mg 00 :00 (four) Medical tablet times Branch daily for 10 days. methocarbam 2021-02- Yes 750mg Take 1 Univers oL 0-11 10-22 tablet by ity of (ROBAXIN-75 00:00: 04:59 mouth 4 [place] 0[place] 750 mg 00 :00 (four) Medical tablet times Branch daily for 10 days. methocarbam 2021-02- Yes 750mg Take 1 Univers oL 0-11 10-22 tablet by ity of (ROBAXIN-75 00:00: 04:59 mouth 4 [place] 0[place] 750 mg 00 :00 (four) Medical tablet times Branch daily for 10 days. methocarbam 2021-02- Yes 750mg Take 1 Univers oL 0-11 10-22 tablet by ity of (ROBAXIN-75 00:00: 04:59 mouth 4 [place] 0) 750 mg 00 :00 (four) Medical tablet times Branch daily for 10 days. methocarbam 2021-02- Yes 750mg Take 1 Univers oL 0-11 10-22 tablet by ity of (ROBAXIN-75 00:00: 04:59 mouth 4 [place] 0) 750 mg 00 :00 (four) Medical tablet times Branch daily for 10 days. methocarbam 2021-02- Yes 750mg Take 1 Univers oL 0-11 10-22 tablet by ity of (ROBAXIN-75 00:00: 04:59 mouth 4 [place] 0) 750 mg 00 :00 (four) Medical tablet times Branch daily for 10 days. methocarbam 2021-02- Yes 750mg Take 1 Univers oL 0-11 10-22 tablet by ity of (ROBAXIN-75 00:00: 04:59 mouth 4 [place] 0) 750 mg 00 :00 (four) Medical tablet times Branch daily for 10 days. APPLY TO No AFFECTED 9-16 AREA(S) 2 00:00: (TWO) TIMES 00 DAILY. APPLY TO 0 No AFFECTED 9-16 AREA(S) 2 00:00: (TWO) TIMES 00 DAILY. hydroCHLORO 2021-0 Yes 12.5mg Take 12.5 Univers thiazide 9-12 mg by ity of 12.5 mg 00:00: mouth [place] tablet 00 every Medical morning. Branch hydroCHLORO 2021-0 Yes 12.5mg Take 12.5 Univers thiazide 9-12 mg by ity of 12.5 mg 00:00: mouth [place] tablet 00 every Medical morning. Branch hydroCHLORO 2021-0 Yes 12.5mg Take 12.5 Univers thiazide 9-12 mg by ity of 12.5 mg 00:00: mouth [place] tablet 00 every Medical morning. Branch hydroCHLORO 2021-0 Yes 12.5mg Take 12.5 Univers thiazide 9-12 mg by ity of 12.5 mg 00:00: mouth [place] tablet 00 every Medical morning. Branch hydroCHLORO 2021-0 Yes 12.5mg Take 12.5 Univers thiazide 9-12 mg by ity of 12.5 mg 00:00: mouth [place] tablet 00 every Medical morning. Branch hydroCHLORO 2021-0 Yes 12.5mg Take 12.5 Univers thiazide 9-12 mg by ity of 12.5 mg 00:00: mouth [place] tablet 00 every Medical morning. Branch hydroCHLORO 2021-0 Yes 12.5mg Take 12.5 Univers thiazide 9-12 mg by ity of 12.5 mg 00:00: mouth [place] tablet 00 every Medical morning. [place] doxycycline 2021-0 Yes [id number] 100mg Take 1 Univers monohydrate 8-25 capsule by it y of 100 mg 00:00: mouth in [place] capsule 00 the Medical morning Branch and 1 capsule in the evening. Take with meals. clindamycin 2021-0 Yes [id number] Apply to Univers 1 % gel 8-25 affected ity of 00:00: area(s) 2 [place] 00 (two) Medical times Branch daily. doxycycline 2021-0 Yes [id number] 100mg Take 1 Univers monohydrate 8-25 capsule by it y of 100 mg 00:00: mouth in [place] capsule 00 the Medical morning Branch and 1 capsule in the evening. Take with meals. clindamycin 2022-0 Yes [id number] Apply to Univers 1 % gel 8-25 affected ity of 00:00: area(s) 2 [place] [address] ([facility] Medical times [place] daily. doxycycline 2022-0 Yes [id number] 100mg Take 1 Univers monohydrate 8-25 capsule by it y of 100 mg 00:00: mouth in [place] capsule 00 the Medical morning Branch and 1 capsule in the evening. Take with meals. clindamycin 2022-0 Yes [id number] Apply to Univers 1 % gel 8-25 affected ity of 00:00: area(s) 2 [place] [address] ([facility] Medical times [place] daily. doxycycline 2022-0 Yes [id number] 100mg Take 1 Univers monohydrate 8-25 capsule by it y of 100 mg 00:00: mouth in [place] capsule 00 the Medical morning Branch and 1 capsule in the evening. Take with meals. clindamycin 2-0 Yes [id number] Apply to Univers 1 % gel 8-25 affected ity of 00:00: area(s) 2 [place] [address] ([facility] Medical times [place] daily. doxycycline 2022-0 Yes [id number] 100mg Take 1 Univers monohydrate 8-25 capsule by it y of 100 mg 00:00: mouth in [place] capsule 00 the Medical morning Branch and 1 capsule in the evening. Take with meals. clindamycin 2022-0 Yes [id number] Apply to Univers 1 % gel 8-25 affected ity of 00:00: area(s) 2 [place] [address] ([facility] Medical times [place] daily. doxycycline 2022-0 Yes [id number] 100mg Take 1 Univers monohydrate 8-25 capsule by it y of 100 mg 00:00: mouth in [place] capsule 00 the Medical morning Branch and 1 capsule in the evening. Take with meals. clindamycin 2022-0 Yes [id number] Apply to Univers 1 % gel 8-25 affected ity of 00:00: area(s) 2 [place] [address] ([facility] Medical times [place] daily. doxycycline 2022-0 Yes [id number] 100mg Take 1 Univers monohydrate 8-25 capsule by it y of 100 mg 00:00: mouth in [place] capsule 00 the Medical morning Branch and 1 capsule in the evening. Take with meals. clindamycin 2022-0 Yes [id number] Apply to Univers 1 % gel 8-25 affected ity of 00:00: area(s) 2 [place] 00 (two) Medical times Branch daily. doxycycline 2-0 Yes [id number] 100mg Take 1 Univers monohydrate 8-25 capsule by it y of 100 mg 00:00: mouth in [facility] 00 the Medical morning Branch and 1 capsule in the evening. Take with meals. clindamycin 2-0 Yes [id number] Apply to Univers 1 % gel 8-25 affected ity of 00:00: area(s) 2 [place] [address] (two) Medical times Branch daily. TAKE 1 2021-0 No 125 TABLET BY 8-19 MOUTH EVERY 00:00: DAY IN THE 00 MORNING TAKE 1 2-0 No 125 TABLET BY 8-19 MOUTH EVERY 00:00: DAY IN THE 00 MORNING &lt 2022-0 No 8-15 00:00: 00 &lt 2022-0 No 8-15 00:00: 00 BENZONATATE 2021-0 No CAP 100MG 8-12 00:00: 00 BENZONATATE 2-0 No CAP 100MG 8-12 00:00: 00 &lt 2022-0 No 500 8-09 00:00: 00 &lt 2022-0 No 500 8-09 00:00: 00 Immunizations Ordered Filled Immunization Date Status Comments [facility] e Immunization Name Name Rho (d) Immune 2019-03-25 Completed University of Globulin 00:00:00 [facility] [place] [facility] Rho (d) Immune 2019-03-25 Completed University of Globulin 00:00:00 [facility] [place] [facility] Rho (d) Immune 2019-03-25 Completed University of Globulin 00:00:00 [facility] [place] [facility] Rho (d) Immune 2019-03-25 Completed University of Globulin 00:00:00 [facility] [place] [facility] Rho (d) Immune 2019-03-25 Completed University of Globulin 00:00:00 [facility] [place] [facility] Rho (d) Immune 2019-03-25 Completed University of Globulin 00:00:00 [facility] [place] [facility] Rho (d) Immune 2019-03-25 Completed University of Globulin 00:00:00 [facility] [place] [facility] Rho (d) Immune 2019-03-25 Completed University of Globulin 00:00:00 [facility] [place] [facility] TDAP 2019-01-30 Completed University of 00:00:00 [facility] [place] [facility] Rho (d) Immune 2019-01-30 Completed University of Globulin 00:00:00 [facility] [place] [facility] TDAP 2019-01-30 Completed University of 00:00:00 [facility] Branch Rho (d) Immune 2019-01-30 Completed University of Globulin 00:00:00 [facility] Branch TDAP 2019-01-30 Completed University of 00:00:00 [facility] Branch Rho (d) Immune 2019-01-30 Completed University of Globulin 00:00:00 [facility] Branch TDAP 2019-01-30 Completed University of 00:00:00 [facility] Branch Rho (d) Immune 2019-01-30 Completed University of Globulin 00:00:00 [facility] [place] [facility] TDAP 2019-01-30 Completed University of 00:00:00 [facility] [place] [facility] Rho (d) Immune 2019-01-30 Completed University of Globulin 00:00:00 [facility] [place] [facility] TDAP 2019-01-30 Completed University of 00:00:00 [facility] [place] [facility] Rho (d) Immune 2019-01-30 Completed University of Globulin 00:00:00 [facility] [place] [facility] TDAP 2019-01-30 Completed University of 00:00:00 [facility] [place] [facility] Rho (d) Immune 2019-01-30 Completed University of Globulin 00:00:00 [facility] [place] [facility] TDAP 2019-01-30 Completed University of 00:00:00 [facility] Branch Rho (d) Immune 2019-01-30 Completed University of Globulin 00:00:00 [facility] [place] [facility] Rho (d) Immune 2015-05-12 Completed University of Globulin 00:00:00 [facility] Branch Rho (d) Immune 2015-05-12 Completed University of Globulin 00:00:00 [facility] Branch Rho (d) Immune 2015-05-12 Completed University of Globulin 00:00:00 [facility] Branch Rho (d) Immune 2015-05-12 Completed University of Globulin 00:00:00 [facility] Branch Rho (d) Immune 2015-05-12 Completed University of Globulin 00:00:00 [facility] Branch Rho (d) Immune 2015-05-12 Completed University of Globulin 00:00:00 [facility] Branch Rho (d) Immune 2015-05-12 Completed University of Globulin 00:00:00 [facility] Branch Rho (d) Immune 2015-05-12 Completed University of Globulin 00:00:00 [facility] Branch TDAP 2015-03-14 Completed University of 00:00:00 [facility] Branch Rho (d) Immune 2015-03-14 Completed University of Globulin 00:00:00 [facility] [place] [facility] TDAP 2015-03-14 Completed University of 00:00:00 [facility] Branch Rho (d) Immune 2015-03-14 Completed University of Globulin 00:00:00 [facility] Branch TDAP 2015-03-14 Completed University of 00:00:00 [facility] Branch Rho (d) Immune 2015-03-14 Completed University of Globulin 00:00:00 [facility] Branch TDAP 2015-03-14 Completed University of 00:00:00 [facility] Branch Rho (d) Immune 2015-03-14 Completed University of Globulin 00:00:00 [facility] Branch TDAP 2015-03-14 Completed University of 00:00:00 [facility] Branch Rho (d) Immune 2015-03-14 Completed University of Globulin 00:00:00 [facility] Branch TDAP 2015-03-14 Completed University of 00:00:00 [facility] Branch Rho (d) Immune 2015-03-14 Completed University of Globulin 00:00:00 [facility] Branch TDAP 2015-03-14 Completed University of 00:00:00 [facility] Branch Rho (d) Immune 2015-03-14 Completed University of Globulin 00:00:00 [facility] Branch TDAP 2015-03-14 Completed University of 00:00:00 [facility] Branch Rho (d) Immune 2015-03-14 Completed University of Globulin 00:00:00 [facility] Branch Rho (d) Immune 2014-10-14 Completed University of Globulin 00:00:00 [facility] Branch Rho (d) Immune 2014-10-14 Completed University of Globulin 00:00:00 [facility] Branch Rho (d) Immune 2014-10-14 Completed University of Globulin 00:00:00 [facility] Branch Rho (d) Immune 2014-10-14 Completed University of Globulin 00:00:00 [facility] Branch Rho (d) Immune 2014-10-14 Completed University of Globulin 00:00:00 [facility] Branch Rho (d) Immune 2014-10-14 Completed University of Globulin 00:00:00 [facility] Branch Rho (d) Immune 2014-10-14 Completed University of Globulin 00:00:00 [facility] Branch Rho (d) Immune 2014-10-14 Completed University of Globulin 00:00:00 [facility] Branch TDAP 2012-02-09 Completed University of 00:00:00 [facility] Branch TDAP 2012-02-09 Completed University of 00:00:00 [facility] [place] [facility] TDAP 2012-02-09 Completed University of 00:00:00 [place] [facility] TDAP 2012-02-09 Completed University of 00:00:00 [facility] Branch TDAP 2012-02-09 Completed University of 00:00:00 [place] [facility] TDAP 2012-02-09 Completed University of 00:00:00 [place] [facility] TDAP 2012-02-09 Completed University of 00:00:00 [facility] Branch TDAP 2012-02-09 Completed University of 00:00:00 [facility] [place] [facility] Vital Signs Vital Name Observation Time Observation Value Comments Source Systolic blood 2021-11-18 23:03:00 150 mm[Hg] Univer sity of pressure [facility] [place] [facility] Diastolic blood 2021-11-18 23:03:00 90 mm[Hg] Unive rsity of pressure [facility] [place] [facility] Heart rate 2021-11-18 23:03:00 88 /min [facility] Body temperature 2021-11-18 23:03:00 36.94 [facility] Respiratory rate 2021-11-18 23:03:00 16 /min [facility] Body height 2021-11-18 23:03:00 170.2 cm [facility] Body weight 2021-11-18 23:03:00 137.349 kg [facility] BMI 2021-11-18 23:03:00 47.43 kg/m2 [facility] Oxygen saturation in 2021-11-18 23:03:00 99 /min [facility] Arterial blood by [facility] Pulse oximetry Branch BP Systolic 2021-11-24 08:30:00 135 mm[Hg] BP Diastolic 2021-11-24 08:30:00 85 mm[Hg] Weight Measured 2021-11-24 08:30:00 301.20 pounds Height Measured 2021-11-24 08:30:00 67.50 inches Body Temperature 2021-11-24 08:30:00 98.30 degrees Heart Rate 2021-11-24 08:30:00 77.00 /min Respiratory Rate 2021-11-24 08:30:00 18.00 /min BP Systolic 2021-09-22 17:10:00 127 mm[Hg] BP Diastolic 2021-09-22 17:10:00 85 mm[Hg] Weight Measured 2021-09-22 17:10:00 302.60 pounds Height Measured 2021-09-22 17:10:00 67.50 inches Body Temperature 2021-09-22 17:10:00 98.40 degrees Heart Rate 2021-09-22 17:10:00 98.00 /min Respiratory Rate 2021-09-22 17:10:00 18.00 /min Procedures Procedure Date / Time Performed Performing Clinician Sour e XR SPINE THORACIC 3 2021-11-19 00:00:00 Anthony Briones [facility] Branch XR LUMBAR SPINE 3 VW 2021-11-18 23:50:00 Anthony Briones [facility] XR KNEE 3 VW LEFT 2021-11-18 23:40:00 Anthony Briones [facility] XR FOREARM 2 VW LEFT 2021-11-18 23:24:00 Anthony Briones [facility] XR WRIST 3+ VW LEFT 2021-11-18 23:15:00 Anthony Briones [facility] Plan of Care Planned Activity Planned Date Details Comments Source Goal Plan of Care Note [code = 58171-0] Goal Plan of Care Note [code = 33698-0] Goal Plan of Care Note [code = 11757-0] Goal Plan of Care Note [code = 66927-0] Goal Plan of Care Note [code = 23749-5] Goal Plan of Care Note [code = 58235-1] Goal Plan of Care Note [code = 74064-7] Goal Plan of Care Note [code = 64532-2] Goal Plan of Care Note [code = 40970-3] Goal Plan of Care Note [code = 97422-0] Goal Plan of Care Note [code = 16613-5] Goal Plan of Care Note [code = 35597-1] Encounters Start End Encounter Admission Attending Care Care Encounter Source Date/Time Date/Time Type Type Clinicians Facility Department ID 2021-12-17 2021-12-17 Outpatient Keke LUZ [facility] [id number] Univers 11:00:00 11:00:00 IDA [facility] 2021-11-24 2021-11-24 Outpatient ANNA CASTILLO [id number] Umesh 08:15:56 08:15:56 [id number] F Rhys 2021-11-24 2021-11-24 Outpatient [id number] 00:00:00 00:00:00 Visit [id number] 2021-11-19 2021-11-19 [facility] [id number] Univers 00:00:00 00:00:00 [facility] [id number] it y of [place] [id number] [place] DESIRAE?BLEA [id number] [facility] [address] [place] MEDICAL OFFICE [facility] 2021-11-18 2021-11-18 [facility] [id number] Univers 18:09:31 23:59:00 Encounter [facility] [id number] ity of [place] [id number] [place] DESIRAE?BLEA [id number] [facility] [address] [facility] OFFICE [facility] 2021-11-18 2021-11-18 [facility] [id number] Univers 18:09:30 23:59:00 Encounter [facility] [id number] ity of [place] [id number] [place] DESIRAE?BLEA [id number] [facility] [address] [place] MEDICAL OFFICE [facility] 2021-11-18 2021-11-18 [facility] [id number] Univers 18:09:30 23:59:00 Encounter [facility] [id number] ity of [place] [id number] [place] DESIRAE?BLEA [id number] [facility] [address] [place] [address] OFFICE [facility] 2021-11-18 2021-11-18 [facility] [id number] Univers 18:09:29 23:59:00 [id number] ity of [place] [id number] [place] DESIRAE?BLEA [id number] [facility] [address] [place] MEDICAL OFFICE [facility] 2021-11-18 2021-11-18 [facility] [id number] Univers 18:09:29 23:59:00 Encounter [facility] [id number] ity of [place] [id number] [place] DESIRAE?BLEA [id number] [facility] [facility] [address] [place] [address] OFFICE [facility] 2021-11-18 2021-11-18 [facility] [id number] Univers 18:09:29 23:59:00 [facility] 2021-11-18 2021-11-18 [facility] 1.2.840.114 [id number] Univers 18:00:00 18:54:25 Care Unknown, [facility] HEALTH [id number] ity of [place] 4.2.7.2.686 [place] DESIRAE?BLEA [phone] [facility] OFFICE [facility] 2021-10-02 2021-10-02 Office Faby Stallings [facility] 1.2.840.114 [id number] Univers 15:30:00 15:45:00 Visit [facility] 350.1.13.10 i ty of CL[place] [phone] [address] 2021-10-02 2021-10-02 Outpatient R FABY STALLINGS [facility] [id number] Univers 15:30:00 15:30:00 [facility] 2021-09-22 2021-09-22 Outpatient [id number] 00:00:00 00:00:00 Visit [id number] 2021-09-08 2021-09-08 Office Go [facility] 1.2.840.114 [id number] Univers 09:30:00 11:12:16 Visit 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 [id number] ity of [facility] 4.2.7.2.686 [place] MATERNAL [phone] [facility] ical & CHILD 107 [facility] 2021-09-08 2021-09-08 Outpatient Keke STILES [facility] [id number] Univers 09:30:00 11:12:16 YARITZA [place] o [facility] 2021-09-08 2021-09-08 [facility] [id number] Univers 09:30:00 11:12:16 MONIBRYCE [place] o [facility] 2021-09-08 2021-09-08 [facility] [id number] Univers 09:30:00 09:30:00 MONIBRYCE ohuston o [facility] 2021-09-08 2021-09-08 Orders Doctor BRADY 1.2.840.114 [id number] Univers 00:00:00 00:00:00 Only Unassigned, FER 350.1.13.10 ity of [place] [facility] 4.2.7.2.686 [place] [phone] [facility] 009 [place] 2021-08-28 2021-08-28 [facility] [id number] Univers 08:45:00 08:45:00 MONIBRYCE whitey o [facility] 2021 2021 Telephone BRADY Alfredo 1.2.824.205 [id number] Univers 00:00:00 00:00:00 Prema MONROE 350.1.13.10 it y of [facility] 4.2.7.2.686 [place] [phone] [facility] 019 [place] 2021-01-07 2021-01-07 Urgent Garret Owen [facility] 1.2.840.114 [id number] Univers 14:26:41 15:03:00 Care Unknown, Attending HEALTH 350.1.13.10 ity [facility] 4.2.7.2.686 [place] DESIRAE?BLEA [phone] [address] MEDICAL OFFICE BUILDING 2021-01-07 2021-01-07 Outpatient R DERRICK [facility] [id number] Univers 14:30:00 14:52:05 GARRET ity [facility] 2021-01-07 2021-01-07 Laboratory Only, Ang Db Test [facility] 1.2.8 40.114 [id number] Univers 14:17:25 14:32:25 Only Unknown, Attending HEALTH 350.1.13.10 ity [facility] 4.2.7.2.686 [place] DESIRAE?BLEA [phone] [address] OFFICE [facility] 2020-08-28 2020-08-28 [facility] 1.2.840.114 [id number] Univers 08:17:40 09:18:27 [facility] E LEARNING MANAGER 350.1.13.10 ity [facility] 4.2.7.2.686 [place] MATERNAL [phone] Med ical & CHILD [address] [place] [address] 2020-08-28 2020-08-28 Outpatient R GO [facility] [id number] Univers 08:15:00 08:15:00 YARITZA [place] o [facility] 2020-07-29 2020-07-29 Outpatient Keke STILES [facility] [id number] Univers 09:45:00 09:45:00 YARITZA [place] o f [facility] 2020-04-30 2020-04-30 Patient Casey [facility] 1.2.840.114 [id number] Univers 00:00:00 00:00:00 Outreach [facility] 350.1.13.10 i ty of [facility] 4.2.7.2.[place] [phone] [address] 2019-07-27 2019-07-27 [facility] 1.2.840.114 [id number] Univers 08:41:44 09:33:41 Visit Yaritza Davies E LEARNING MANAGER 350.1.13.10 ity of [facility] 4.2.7.2.686 [place] MATERNAL [phone] [facility] ical & CHILD [address] [place] [address] 2019-07-27 2019-07-27 Outpatient Keke STILES [facility] [id number] Univers 08:30:00 08:30:00 YARITZA ledesma [facility] 2019-05-08 2019-05-08 Outpatient Keke STILES [facility] [id number] Univers 10:30:00 10:30:00 YARITZA houstno o callie [facility] 2019-04-14 2019-04-14 Routine Go [facility] 1.2.840.114 [id number] Univers 10:48:54 12:49:58 Yaritza R E LEARNING MANAGER 350.1.13.10 ity of Visit [facility] 4.2.7.2.686 [place] MATERNAL [phone] [facility] [address] [place] [address] 2019-04-14 2019-04-14 Outpatient Keke STILES [facility] [id number] Univers 10:45:00 10:45:00 YARITZA ledesma [facility] 2019-03-31 2019-03-31 Nurse Visit, Steven-Rmchp Nurse [facility] 1.2 .840.114 [id number] Univers 11:31:31 12:03:46 Visit Janice Norman E LEARNING MANAGER 350.1.13. 10 ity of [facility] 4.2.7.2.686 [place] as MATERNAL [phone] [facility] & [address] 2019-03-16 2019-03-26 [facility] BRADY Baer 1.2.840.114 [id number] Univers 19:23:00 15:35:00 Encounter Haley MONROE 350.1.13.10 ity of HOSPITAL 4.2.7.2.686 [place] [phone] [facility] 063 [place] 2019-03-16 2019-03-20 Routine Risk, Pxs-Asrxz-Ys/High [facility] 1. 2.840.114 [id number] Univers 13:53:42 08:51:45 Yaritza Stiles R E LEARNING MANAGER 350.1.13.1 0 ity of Visit Georgette Rossi [facility] 4.2.7.2.686 [place] MATERNAL [phone] [facility] [address] [place] [address] 2019-03-08 2019-03-08 Abstract Go PALIZETH 1.2.840.114 [id number] Univers 00:00:00 00:00:00 Roshunda R E LEARNING MANAGER 350.1.13.10 ity of REGIONAL 4.2.7.2.686 [place] MATERNAL [phone] Med ical & CHILD [address] [place] [address] 2019-03-06 2019-03-06 Case Go PALIZETH 1.2.840.114 [id number] Univers 00:00:00 00:00:00 Management Roshunda R E LEARNING MANAGER 350.1.13.10 ity of REGIONAL 4.2.7.2.686 [place] as MATERNAL [phone] [facility] & CHILD [address] [place] [address] 2019-02-28 2019-02-28 Routine Go PALIZETH 1.2.840.114 [id number] Univers 13:33:03 14:12:00 Roshunda R E LEARNING MANAGER 350.1.13.10 ity of Visit REGIONAL 4.2.7.2.686 [place] MATERNAL [phone] [facility] ical & CHILD [address] [place] [address] 2019-02-13 2019-02-13 Orders Doctor BRADY 1.2.840.114 [id number] Univers 00:00:00 00:00:00 Only Unassigned, FER 350.1.13.10 ity of [place] [facility] 4.2.7.2.686 [place] as [phone] [facility] 009 [place] 2018-10-16 2018-10-16 BRADY White 1.2.840.114 [id number] Univers 00:00:00 00:00:00 Triage Luh S FER 350.1.13.10 ity of HOSPITAL 4.2.7.2.686 [place] [phone] [facility] 019 [place] 2018-10-12 2018-10-12 Routine Isaiahangela [facility] 1.2.090.071 [id number] Univers 16:04:22 16:56:50 Janice C E LEARNING MANAGER 350.1.13.10 ity of Visit REGIONAL 4.2.7.2.686 [place] MATERNAL [phone] [facility] ical & CHILD [address] [place] [address] 2018-09-21 2018-09-21 Telephone Tong [facility] 1.2.840.114 [id number] Univers 00:00:00 00:00:00 Nessa Lieberman E LEARNING MANAGER 350.1.13.10 it y of [facility] 4.2.7.2.686 [place] MATERNAL [phone] [facility] ical & CHILD 107 [facility] 2018-09-05 2018-09-08 Office Faculty, Steven Deanshane [facility] 1.2 .840.114 [id number] Univers 09:52:24 09:14:29 Visit Ursula Toth E LEARNING MANAGER 350.1.13 .10 ity of [facility] 4.2.7.2.686 [place] MATERNAL [phone] [facility] [address] [place] [address] 2018-09-08 2018-09-08 Telephone Ursula Toth 1.2.840.114 [id number] Univers 00:00:00 00:00:00 [facility] 350.1.13.10 ity of [facility] 4.2.7.2.[place] [phone] [address] Results Test Description Test Time Test Comments Results Result Comments Source COMPREHENSIVE METABOLIC PANEL 2021-09-25 05:41:42 Test Item Value Reference Range Interpretation Comme nts GLUCOSE (test code = 2217) 93 MG/DL 70-99 BUN (test code = 2208) 9 MG/DL 6-20 CREATININE (test code = 0.83 MG/DL 0.60-1.30 2213) eGFR (2020 CKD-EPI) (test 98 ML/MIN/1.73 >60 code = 19409) CALC BUN/CREAT (test code = 11 RATIO 6-28 2234) SODIUM (test code = 2231) 137 MEQ/L 133-146 POTASSIUM (test code = 2228) 4.4 MEQ/L 3.5-5.4 CHLORIDE (test code = 2215) 99 MEQ/L 95-107 CARBON DIOXIDE (test code = 26 MEQ/L -2205) CALCIUM (test code = 2209) 9.9 MG/DL 8.5-10.5 PROTEIN, TOTAL (test code = 8.7 G/DL 6.1-8.3 H 2228) ALBUMIN (test code = 2201) 4.5 G/DL 3.5-5.2 CALC GLOBULIN (test code = 4.2 G/DL 1.9-3.7 H 2239) CALC A/G RATIO (test code = 1.1 RATIO 1.0-2.6 2233) BILIRUBIN, TOTAL (test code 0.3 MG/DL See_Comment [Automated message] The = 2206) system which ge nerated this result transmit jordyn reference range: <=1.2. T he reference range was not u sed to interpret this result as normal/abnormal . ALKALINE PHOSPHATASE (test 87 U/L 40-112 code = 2204) AST (test code = 2218) 11 U/L 9-40 ALT (test code = 2219) 6 U/L 5-40 LIPID [id number] 05:41:42 Test Item Value Reference Range Interpretation Comments CHOLESTEROL (test 152 MG/DL <200 code = 2210) TRIGLYCERIDES (test 133 MG/DL <150 code = 2232) HDL CHOLESTEROL (test 38 MG/DL >39 L code = 2220) CALC LDL CHOL (test 91 MG/DL <100 NOTE: C ALCULATED LDL code = 2237) IS BASED ON MAEGAN-ROD METHOD WHICHINCLUDES ADJUSTABLE TRIGLYCERIDE:VL DL CHOLESTEROL RAT IO.THIS FACTOR VARIES B Y MEASURED TRIGLY CERIDE AND NON-HDLCHOL ESTEROL CONCENTRATIONS WITH INCREASED CALCU LATED LDL SEENIN HIGH ER TRIGLYCERIDE OR LOWER NON-HDL SPECIME NS. FOR MOREINFORMATION , SEE CLIENT ANNOUNCE MENT AT [email or web address] RISK RATIO LDL/HDL 2.39 RATIO <3.22 UNLESS O THERWISE (test code = 2238) INDICATED , ALL TESTING PERFORMED [facility], [address] [place] [place] [address] [facility] DIRECTOR: KENNY OLIVEIRA M.D. CLIA NUMBER [id number] CAP ACCREDITATION N O. [id number] LIPID [id number] 00:00:00 Test Item Value Reference Range Interpretation Comments CHOLESTEROL (test code = 2210) 152 MG/DL TRIGLYCERIDES (test code = 2232) 133 MG/DL HDL CHOLESTEROL (test code = 2220) 38 MG/DL CALC LDL CHOL (test code = 2237) 91 MG/DL RISK RATIO LDL/HDL (test code = 2.39 RATIO 2238) LIPID [id number] 00:00:00 Test Item Value Reference Range Interpretation Comments CHOLESTEROL (test code = 2210) 152 MG/DL TRIGLYCERIDES (test code = 2232) 133 MG/DL HDL CHOLESTEROL (test code = 2220) 38 MG/DL CALC LDL CHOL (test code = 2237) 91 MG/DL RISK RATIO LDL/HDL (test code = 2.39 RATIO 2238) COMPREHENSIVE METABOLIC [id number] 00:00:00 Test Item Value Reference Range Interpretation Comments GLUCOSE (test code = 2217) 93 MG/DL BUN (test code = 2208) 9 MG/DL CREATININE (test code = 2214) 0.83 MG/DL eGFR (2020 CKD-EPI) (test code 98 ML/MIN/1.73 = 15772) CALC BUN/CREAT (test code = 11 RATIO 2235) SODIUM (test code = 2231) 137 MEQ/L POTASSIUM (test code = 2228) 4.4 MEQ/L CHLORIDE (test code = 2215) 99 MEQ/L CARBON DIOXIDE (test code = 26 MEQ/L 2205) CALCIUM (test code = 2209) 9.9 MG/DL PROTEIN, TOTAL (test code = 8.7 G/DL 2228) ALBUMIN (test code = 2201) 4.5 G/DL CALC GLOBULIN (test code = 4.2 G/DL 2240) CALC A/G RATIO (test code = 1.1 RATIO 2234) BILIRUBIN, TOTAL (test code = 0.3 MG/DL 2206) ALKALINE PHOSPHATASE (test 87 U/L code = 2204) AST (test code = 2218) 11 U/L ALT (test code = 2219) 6 U/L COMPREHENSIVE METABOLIC [id number] 00:00:00 Test Item Value Reference Range Interpretation Comments GLUCOSE (test code = 2217) 93 MG/DL BUN (test code = 2208) 9 MG/DL CREATININE (test code = 2214) 0.83 MG/DL eGFR (2020 CKD-EPI) (test code 98 ML/MIN/1.73 = 18903) CALC BUN/CREAT (test code = 11 RATIO 2235) SODIUM (test code = 2231) 137 MEQ/L POTASSIUM (test code = 2228) 4.4 MEQ/L CHLORIDE (test code = 2215) 99 MEQ/L CARBON DIOXIDE (test code = 26 MEQ/L 2205) CALCIUM (test code = 2209) 9.9 MG/DL PROTEIN, TOTAL (test code = 8.7 G/DL 2228) ALBUMIN (test code = 2201) 4.5 G/DL CALC GLOBULIN (test code = 4.2 G/DL 224) CALC A/G RATIO (test code = 1.1 RATIO 2234) BILIRUBIN, TOTAL (test code = 0.3 MG/DL 2206) ALKALINE PHOSPHATASE (test 87 U/L code = 2204) AST (test code = 2218) 11 U/L ALT (test code = 2219) 6 U/L LIPID [id number] 00:00:00 Test Item Value Reference Range Interpretation Comments CHOLESTEROL (test code = 2210) 152 MG/DL TRIGLYCERIDES (test code = 2232) 133 MG/DL HDL CHOLESTEROL (test code = 2220) 38 MG/DL CALC LDL CHOL (test code = 2237) 91 MG/DL RISK RATIO LDL/HDL (test code = 2.39 RATIO 2238) LIPID [id number] 00:00:00 Test Item Value Reference Range Interpretation Comments CHOLESTEROL (test code = 2210) 152 MG/DL TRIGLYCERIDES (test code = 2232) 133 MG/DL HDL CHOLESTEROL (test code = 2220) 38 MG/DL CALC LDL CHOL (test code = 2237) 91 MG/DL RISK RATIO LDL/HDL (test code = 2.39 RATIO 2238) COMPREHENSIVE METABOLIC [id number] 00:00:00 Test Item Value Reference Range Interpretation Comments GLUCOSE (test code = 2217) 93 MG/DL BUN (test code = 2208) 9 MG/DL CREATININE (test code = 2214) 0.83 MG/DL eGFR (2020 CKD-EPI) (test code 98 ML/MIN/1.73 = 27946) CALC BUN/CREAT (test code = 11 RATIO 2235) SODIUM (test code = 2231) 137 MEQ/L POTASSIUM (test code = 2228) 4.4 MEQ/L CHLORIDE (test code = 2215) 99 MEQ/L CARBON DIOXIDE (test code = 26 MEQ/L 2205) CALCIUM (test code = 2209) 9.9 MG/DL PROTEIN, TOTAL (test code = 8.7 G/DL 2229) ALBUMIN (test code = 2201) 4.5 G/DL CALC GLOBULIN (test code = 4.2 G/DL 2240) CALC A/G RATIO (test code = 1.1 RATIO 2234) BILIRUBIN, TOTAL (test code = 0.3 MG/DL 2206) ALKALINE PHOSPHATASE (test 87 U/L code = 2204) AST (test code = 2218) 11 U/L ALT (test code = 2219) 6 U/L COMPREHENSIVE METABOLIC [id number] 00:00:00 Test Item Value Reference Range Interpretation Comments GLUCOSE (test code = 2217) 93 MG/DL BUN (test code = 2208) 9 MG/DL CREATININE (test code = 2214) 0.83 MG/DL eGFR (2020 CKD-EPI) (test code 98 ML/MIN/1.73 = 17653) CALC BUN/CREAT (test code = 11 RATIO 2235) SODIUM (test code = 2231) 137 MEQ/L POTASSIUM (test code = 2228) 4.4 MEQ/L CHLORIDE (test code = 2215) 99 MEQ/L CARBON DIOXIDE (test code = 26 MEQ/L 2205) CALCIUM (test code = 2209) 9.9 MG/DL PROTEIN, TOTAL (test code = 8.7 G/DL 2228) ALBUMIN (test code = 2201) 4.5 G/DL CALC GLOBULIN (test code = 4.2 G/DL 2240) CALC A/G RATIO (test code = 1.1 RATIO 2234) BILIRUBIN, TOTAL (test code = 0.3 MG/DL 2206) ALKALINE PHOSPHATASE (test 87 U/L code = 2204) AST (test code = 2218) 11 U/L ALT (test code = 2219) 6 U/L
[2022-01-04] MEDS ORDERED: HYDROCODONE/APAP 5/325 MG TAB ONE (19:12)
[2022-01-04] MEDS ORDERED: KETOROLAC 30 MG/ML INJ ONE (19:13)
--- NOTE | 2022-01-04 20:48 | RAD REPORT ---
EXAM DESCRIPTION: RAD - Knee Right 3 View - 01/04/2022 8:28 pm CLINICAL HISTORY: Right knee pain status post injury FINDINGS: No fracture or dislocation is seen.
--- NOTE | 2022-01-04 21:05 | ER ---
Nurse's Notes [facility] Name: Monae Mccallum Age: 26 yrs Sex: Female : 1995 Arrival Date: 01/04/2022 Time: 18:40 Bed 10 Private MD: Diagnosis: Other internal derangements of right knee Presentation: 01/04 19:02 Chief complaint: Patient states: She slipped and fell last night twisting her right kb3 knee. Reporting right marisol-patellar pain. Coronavirus screen: Vaccine status: Patient reports being unvaccinated. Client denies travel out of the [place] in the last 14 days. Ebola Screen: Patient negative for fever greater than or equal to 101.5 degrees Fahrenheit, and additional compatible Ebola Virus Disease symptoms Patient denies exposure to infectious person. Patient denies travel to an Ebola-affected area in the 21 days before illness onset. Initial Sepsis Screen: Does the patient meet any 2 criteria? No. Patient's initial sepsis screen is negative. Does the patient have a suspected source of infection? No. Patient's initial sepsis screen is negative. Risk Assessment: Do you want to hurt yourself or someone else? Patient reports no desire to harm self or others. Onset of symptoms was January 03, 2022 at 20:00. 19:02 Method Of Arrival: Wheelchair kb3 19:02 Acuity: EMA 4 kb3 Triage Assessment: 19:06 General: Appears in no apparent distress. Behavior is calm, cooperative. Pain: kb3 Complains of pain in right knee Pain does not radiate. Pain currently is 10 out of 10 on a pain scale. DRIVER/GUIDE: 19:06 LMP 12/19/2021 kb3 Historical: - Allergies: 19:06 No Known Allergies; kb3 - Home Meds: 19:06 None [Active]; kb3 - PMHx: 19:06 ASD; Hypertension; kb3 - PSHx: 19:06 heart procedure when she was younger; kb3 - Immunization history:: Adult Immunizations up to date, Client reports having NOT received the Covid vaccine. Last tetanus immunization: up to date. - Social history:: Smoking status: Patient denies any tobacco usage or history of. Screenin:28 Abuse screen: Denies threats or abuse. Denies injuries from another. Nutritional hb screening: No deficits noted. Tuberculosis screening: No symptoms or risk factors identified. Fall Risk None identified. Assessment: 20:27 General: Appears in no apparent distress. uncomfortable, Behavior is calm, cooperative. hb Pain: Pain currently is 10 out of 10 on a pain scale. Neuro: Level of Consciousness is awake, alert, obeys commands, Oriented to person, place, time, situation. Cardiovascular: Patient's skin is warm and dry. Respiratory: Respiratory effort is even, unlabored, Respiratory pattern is regular, symmetrical. GI: No signs and/or symptoms were reported involving the gastrointestinal system. : No signs and/or symptoms were reported regarding the genitourinary system. EENT: No signs and/or symptoms were reported regarding the EENT system. Derm: Skin is pink, warm \T\ dry. Musculoskeletal: Reports right knee pain. Vital Signs: 19:02 BP 148 / 69; Pulse 87; Resp 20; Temp 99.1; Pulse Ox 100% ; Weight 136.08 kg; Height 5 kb3 ft. 7 in. (170.18 cm); Pain 10/10; 19:02 Body Mass Index 46.99 (136.08 kg, 170.18 cm) kb3 ED Course: 18:40 Patient arrived in ED. jl7 18:44 Adelfo Borjas PA is PHCP. m 18:44 Bernard Morris DO is Attending Physician. jmm 19:06 Triage completed. kb3 19:06 Arm band placed on. kb3 19:10 Mila Casillas, RN is Primary Nurse. hb 20:28 Patient has correct armband on for positive identification. hb 20:30 Knee Right 3 View XRAY In Process Unspecified. EDMS 21:04 John Jimenez MD is Referral Physician. jmm 22:09 No provider procedures requiring assistance completed. Patient did not have IV access hb during this emergency room visit. Administered Medications: 19:16 Drug: Ketorolac 30 mg Route: IM; Site: right deltoid; hb 21:12 Follow up: Response: No adverse reaction hb 19:16 Drug: HYDROcodone-acetaminophen 5 mg-325 mg 1 tabs Route: PO; hb 20:11 Follow up: Response: No adverse reaction hb Medication: 20:28 VIS not applicable for this client. hb Outcome: 21:05 Discharge ordered by . jmm 22:09 Discharged to home via wheelchair. 22:09 Condition: stable 22:09 Discharge instructions given to patient, Instructed on discharge instructions, follow up and referral plans. medication usage, Demonstrated understanding of instructions, follow-up care, medications, Prescriptions given X 2. 22:09 Patient left the ED. Signatures: Dispatcher [employer] EDMS Adelfo Borjas PA PA jmm Baxter, Heather, RN RN Genaro Patel RN RN jl7 Maria E Raza RN RN kb3
--- NOTE | 2022-01-04 21:06 | EDPHYS ---
Physician Documentation [facility] Name: Monae Mccallum Age: 26 yrs Sex: Female : 1995 Arrival Date: 01/04/2022 Time: 18:40 Bed 10 Private MD: ED Physician Bernard Morris HPI: 01/04 19:04 This 26 yrs old Black Female presents to ER via Wheelchair with complaints of Knee jmm Injury, Knee Pain. 19:04 The patient presents with an injury, pain. Onset: The symptoms/episode began/occurred jmm acutely, 1 day(s) ago. Modifying factors: The symptoms are alleviated by nothing. the symptoms are aggravated by movement, weight bearing, bending knee. This is a 26-year-old female with history of ASD, hypertension the presents emerged part with complaints of right knee pain. Patient states that she slipped and fell and has had pain while putting pressure on her knee since. Denies other known injury on the fall.. [employer]: 19:06 LMP 12/19/2021 kb3 Historical: - Allergies: 19:06 No Known Allergies; kb3 - Home Meds: 19:06 None [Active]; kb3 - PMHx: 19:06 ASD; Hypertension; kb3 - PSHx: 19:06 heart procedure when she was younger; kb3 - Immunization history:: Adult Immunizations up to date, Client reports having NOT received the Covid vaccine. Last tetanus immunization: up to date. - Social history:: Smoking status: Patient denies any tobacco usage or history of. ROS: 19:04 Constitutional: Negative for fever, chills, and weight loss, Cardiovascular: Negative jmm for chest pain, palpitations, and edema, Respiratory: Negative for shortness of breath, cough, wheezing, and pleuritic chest pain. 19:04 MS/extremity: Positive for injury or acute deformity, pain. 19:04 All other systems are negative. Exam: 19:04 Constitutional: This is a well developed, well nourished patient who is awake, alert, jmm and in no acute distress. Head/Face: atraumatic. Eyes: EOMI, no conjunctival erythema appreciated ENT: Moist Mucus Membranes Neck: Trachea midline, Supple Chest/axilla: Normal chest wall appearance and motion. Cardiovascular: Regular rate and rhythm. No edema appreciated Respiratory: Normal respirations, no respiratory distress appreciated Abdomen/GI: Non distended Back: Normal ROM Skin: General appearance color normal 19:04 Musculoskeletal/extremity: Full range of motion appreciated to the right knee, tenderness is appreciated at the medial and lateral region, compartments are soft, full dorsalis pedis pulse, neurovascular intact. 19:04 Skin: Appearance: Color: normal in color. 19:04 Neuro: Orientation: is normal, Mentation: is normal, Memory: is normal. 19:04 Psych: Behavior/mood is pleasant, cooperative. Vital Signs: 19:02 BP 148 / 69; Pulse 87; Resp 20; Temp 99.1; Pulse Ox 100% ; Weight 136.08 kg; Height 5 kb3 ft. 7 in. (170.18 cm); Pain 10/10; 19:02 Body Mass Index 46.99 (136.08 kg, 170.18 cm) kb3 MDM: 19:04 Patient medically screened. [facility] 21:04 Data reviewed: vital signs, nurses notes. Counseling: I had a detailed discussion with [facility] the patient and/or guardian regarding: the historical points, exam findings, and any diagnostic results supporting the discharge/admit diagnosis, the need for outpatient follow up, to return to the emergency department if symptoms worsen or persist or if there are any questions or concerns that arise at home. 21:04 Counseling: I had a detailed discussion with the patient and/or guardian regarding: [facility] radiology results. 01/04 19:04 Order name: Knee Right 3 View XRAY; Complete Time: 21:02 [facility] 01/04 21:02 Order name: Knee Immobilizer; Complete Time: 22:09 [facility] Administered Medications: 19:16 Drug: Ketorolac 30 mg Route: IM; Site: right deltoid; hb 21:12 Follow up: Response: No adverse reaction hb 19:16 Drug: HYDROcodone-acetaminophen 5 mg-325 mg 1 tabs Route: PO; hb 20:11 Follow up: Response: No adverse reaction hb Disposition: 01/05 19:11 Co-signature as Attending Physician, Bernard LLOYD was immediately available on-site ms3 in the Emergency Department for consultation in the care of the patient.. Disposition Summary: 01/04/22 21:05 Discharge Ordered Location: Home [facility] Condition: Stable jmm Diagnosis - Other internal derangements of right knee [facility] Followup: [facility] - With: John Jimenez MD - When: 2 - 3 days - Reason: Recheck today's complaints, Continuance of care, Re-evaluation by your physician Discharge Instructions: - Discharge Summary Sheet [facility] - Acute Knee Pain, Adult [facility] Forms: - Medication Reconciliation Form [facility] - Work release form [facility] - Thank You Letter [facility] - Antibiotic Education [facility] - Prescription Opioid Use [facility] Prescriptions: - Diclofenac Sodium 75 mg Oral Tablet Sustained Release - take 1 tablet by ORAL route 2 times per day; 30 tablet; Refills: 0, Product [facility] Selection Permitted - orphenadrine citrate 100 mg Oral Tablet Sustained Release - take 1 tablet by ORAL route 2 times per day As needed; 20 tablet; Refills: 0, [facility] Product Selection Permitted Signatures: Dispatcher [employer] Adelfo Delcid PA PA jmm Baxter, Heather, RN RN Bernard Morris DO DO ms3 Maria E Raza, RN RN kb3
[2022-01-04 22:22] VITALS: BP 148/69; TEMP 99.1; O2SAT 100
== END 2022-01-04 22:09 | disposition home or self-care (01) ==
LOC: ER 18:33
DX: M23.8X1 Other internal derangements of right knee (principal); I10 Essential (primary) hypertension
CPT/HCPCS: 96372; 99283

== ENCOUNTER 2022-02-28 20:30 | Emergency (ER) | payer SELFPAY ==
--- OUTSIDE RECORDS SUMMARY | 2022-02-28 20:34 | XMS REPORT | Continuity of Care Document ---
:1995 Author Organization [facility] t Address [address] [place] [address] Care Team Providers Name Role Phone Carmen MARRUFO, Cindy Primary Care Physician [phone] IDA LUZ Attending Clinician Unavailable Anthony Crow Attending Clinician ANTHONY BRIONES Attending Clinician Unavailable Unknown, Attending Attending Clinician Unavailable Faby Stallings MD Attending Clinician FABY STALLINGS Attending Clinician Unavailable Yaritza Perales Attending Clinician YARITZA STILES Attending Clinician Unavailable Doctor Unassigned, [place] Attending Clinician Unavailable Prema Alfredo RN Attending Clinician Unavailable Garret Owen MD Attending Clinician GARRET OWEN Attending Clinician Unavailable Only, Ang Db Test Attending Clinician Unavailable Robb Peña DO Attending Clinician Visit, Ang-Rmchp Nurse Attending Clinician Unavailable Janice Mars Attending Clinician [phone] Haley Baer MD Attending Clinician Risk, Dyk-Asgxz-Rp/High Attending Clinician Unavailable Georgette Montoya Attending Clinician Matthew DURANT, Luh Morejon Attending Clinician Unavailable Tong MOSQUEDAP, Nessa N Attending Clinician Faculty, [facility] Attending Clinician Unavailable Navneet RICH, Ursula Max Attending Clinician Keyur RICH, Haley Admitting Clinician Payers Payer Name Policy Type Policy Number Effective Date Expiration Date [facility] [facility] [id number] 2018 CHOICE [place] STAR 00:00:00 Problems Condition [...] blood 6-18 ity of pressure pressure 00:00: [place] reading reading 00 Medical without without Branch diagnosis diagnosis of of hypertensi hypertensi on on Class 3 Class 3 Disease Active 2019- Univers severe severe 6-18 ity of obesity obesity 00:00: [place] with body with body 00 [facility] mass index mass index Br [...] gestation 2-13 ity of of of 00:00: [place] 00 [facility] Branch Bacterial Bacterial Disease Active 2020 Uni vers vaginosis vaginosis 2-10 ity of in in 00:00: [place] 00 [facility] Branch Group B Group B Disease Active Univers streptococ streptococ 2-10 it y of [facility] 00:00: [place] infection infection 00 Medi luis manuel during during Branch History of History of Disease Active 2019- U nivers bilateral bilateral 1-08 ity of tubal tubal 00:00: [place] ligation ligation 00 Medica l Branch Multiparit Multiparit Disease Active 2019-0 U nivers y y 1-06 ity of 00:00: [place] 00 Medical Branch Need for Need for Disease Active 2018-02 Unive rs prophylact prophylact 1-15 it y of ic ic 00:00: [place] vaccinatio vaccinatio 00 Me dical n against n against Bran ch rubella rubella alone alone BMI BMI Disease Active 2018-02 Univers 45.0-49.9, 45.0-49.9, 1-15 it y of adult adult 00:00: [place] 00 Medical Branch Gastroesop Gastroesop Disease Active 2018-02 U nivers hageal hageal 1-15 ity of reflux reflux 00:00: [place] disease disease 00 Medical without without Branch esophagiti esophagiti s s History of History of Disease Active 2018-02 U nivers repair of repair of 1-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 00:00[place] atrial atrial 00 Medical septal septal Branch defect defect (ASD) (ASD) Chlamydia Chlamydia Disease Active 2018-02 Uni vers 0-14 ity of 00:00: [place] 00 Medical Branch Supervisio Supervisio Disease Active U nivers n of high n of high 6-26 ity of risk risk 00:00: [place] 00 Medi luis manuel in third in [...] 6-26 it y of dism dism 00:00: [place] 00 Medical Branch Rubella Rubella Disease Active 2017-02 Overview: Univ ers non-immune non-immune 0-03 Formattin ity of status, status, 00:00: g of this [place] antepartum antepartum 00 note Me dical might be Branch different from the original. Address in PP Morbid Morbid Disease Active Univers obesity obesity 5-19 ity of 00:00: [place] 00 [facility] Screening Screening Disease Active Uni vers examinatio examinatio 5-19 it y of n for STD n for STD 00:[place] (sexually (sexually 00 Medi luis manuel transmitte transmitte Br anch d disease) d disease) Sickle Sickle Disease Active Univers cell trait cell trait 2-18 it y of 00:00: [place] 00 [facility] Rh Rh Disease Active Overview: Univer s negative negative 10-10 Formattin ity of status status 00:00: g of this [place] during during 00 note Medical might be Br anch in first in first different trimester trimester from the original. IAT (+)- Rhogm 10/24/2014 Pre-eclamp Pre-eclamp Disease Active U nivers ben ben 10-08 ity of 00:00: [place] 00 [facility] Allergies, Adverse Reactions, Alerts Allergy Allergy Status Severity Reaction(s) Onset Inactive Treating Comm ents Source Name Type Date Date Clinician NO KNOWN Drug Active Univers ALLERGIE Class ity of S [facility] Social History Social Habit Start Date Stop Date Quantity Comments Source Exposure to 2021-11-08 2021-11-18 Not sure [facility] SARS-CoV-2 00:00:00 17:57:00 [facility] (event) [place] Alcohol intake 2021-11-18 2021-11-18 0 /d University of 00:00:00 00:00:00 [facility] Tobacco use and 2021-09-08 2021-09-08 Smokeless tobacco Un iversity of exposure 00:00:00 00:00:00 non-user [facility] Education 2019-03-16 2019-03-16 21 University of 00:00:00 00:00:00 [facility] Sex Ass[birth year] At [birth year] Universit y of 00:00:00 00:00:00 [facility] Smoking Status Start Date Stop Date Source Never smoked tobacco [facility] Medications Ordered Filled Start Stop Current Ordering Indication Dosage Frequency Signature Comments Components Source Medication Medication Date Date Medication? Clinician (SIG) Name Name ibuprofen 2021-02- No [id number] 800mg Uni vers (IBU) 11-18 ity of tablet 800 00:00: 23:09 [place] mg 00 :00 [facility] ibuprofen 2021-02 800mg 800 mg, Univers (IBU) 0-12 10-11 Oral, ity of tablet 800 00:00: 23:09 ONCE, 1 [place] mg 00 :00 dose, On Medical Tue Branch 11/18/21 at 1900, Routine methocarbam 2021-02 750mg Take 1 Univers oL 0-11 10-22 tablet by ity of (ROBAXIN-75 00:00: 04:59 mouth 4 [place] 0[place] 750 mg 00 :00 (four) Medical tablet times Branch daily for 10 days. methocarbam 2021-02 750mg Take 1 Univers oL 0-11 10-22 tablet by ity of (ROBAXIN-75 00:00: 04:59 mouth 4 [place] 0[place] 750 mg 00 :00 (four) Medical tablet times Branch daily for 10 days. methocarbam 2021-02 750mg Take 1 Univers oL 0-11 10-22 tablet by ity of (ROBAXIN-75 00:00: 04:59 mouth 4 [place] 0[place] 750 mg 00 :00 (four) Medical tablet times Branch daily for 10 days. methocarbam 2021-02 750mg Take 1 Univers oL 0-11 10-22 tablet by ity of (ROBAXIN-75 00:00: 04:59 mouth 4 [place] 0) 750 mg 00 :00 (four) Medical tablet times Branch daily for 10 days. methocarbam 2021-02 750mg Take 1 Univers oL 0-11 10-22 tablet by ity of (ROBAXIN-75 00:00: 04:59 mouth 4 [place] 0) 750 mg 00 :00 (four) Medical tablet times Branch daily for 10 days. methocarbam 2021-02 750mg Take 1 Univers oL 0-11 10-22 tablet by ity of (ROBAXIN-75 00:00: 04:59 mouth 4 [place] 0) 750 mg 00 :00 (four) Medical tablet times Branch daily for 10 days. methocarbam 2021-02 750mg Take 1 Univers oL 0-11 10-22 tablet by ity of (ROBAXIN-75 00:00: 04:59 mouth 4 [place] 0) 750 mg 00 :00 (four) Medical tablet times Branch daily for 10 days. APPLY TO No AFFECTED 9-16 AREA(S) 2 00:00: (TWO) TIMES 00 DAILY. APPLY TO No AFFECTED 9-16 AREA(S) 2 [...] tablet 00 every Medical morning. Branch hydroCHLORO 0 Yes 12.5mg Take 12.5 Univers thiazide 9-12 mg by ity of 12.5 mg 00:00: mouth [place] tablet 00 every Medical morning. Branch hydroCHLORO 0 Yes 12.5mg Take 12.5 Univers thiazide 9-12 mg by ity of 12.5 mg 00:00: mouth [place] tablet 00 every Medical morning. Branch hydroCHLORO 2021-0 Yes 12.5mg Take 12.5 Univers thiazide 9-12 mg by ity of 12.5 mg 00:00: mouth [place] tablet 00 every Medical morning. Branch doxycycline 2021-0 Yes [id number] 100mg Take 1 Univers monohydrate 8-25 capsule by it y of 100 mg 00:00: mouth in [place] capsule 00 the Medical morning Branch and 1 capsule in the evening. Take with meals. clindamycin 2021-0 Yes [id number] Apply to Univers 1 % gel 8-25 affected ity of 00:00: area(s) 2 [place] 00 (two) Medical times Branch daily. doxycycline 2021-0 Yes [id number] 100mg Take 1 Univers monohydrate 8-25 capsule by it y of 100 mg 00:00: mouth in [place] capsule 00 the Medical morning Branch and 1 capsule in the evening. Take with meals. clindamycin 2022-0 Yes [id number] Apply to Univers 1 % gel 8-25 affected ity of 00:00: area(s) 2 [place] [address] ([facility] Medical times [place] daily. doxycycline 2022-0 Yes [id number] 100mg Take 1 Univers monohydrate 8-25 capsule by it y of 100 mg 00:00: mouth in [place] capsule 00 the Medical morning Branch and 1 capsule in the evening. Take with meals. clindamycin 2022-0 Yes [id number] Apply to Univers 1 % gel 8-25 affected ity of 00:00: area(s) 2 [place] [address] ([facility] Medical times [place] daily. doxycycline 2022-0 Yes [id number] 100mg Take 1 Univers monohydrate 8-25 capsule by it y of 100 mg 00:00: mouth in [place] capsule 00 the Medical morning Branch and 1 capsule in the evening. Take with meals. clindamycin 2022-0 Yes [id number] Apply to Univers 1 % gel 8-25 affected ity of 00:00: area(s) 2 [place] [address] ([facility] times [place] daily. doxycycline 2022-0 Yes [id number] 100mg Take 1 Univers monohydrate 8-25 capsule by it y of 100 mg 00:00: mouth in [place] capsule 00 the Medical morning Branch and 1 capsule in the evening. Take with meals. clindamycin 2022-0 Yes [id number] Apply to Univers 1 % gel 8-25 affected ity of 00:00: area(s) 2 [place] [address] ([facility] Medical times [place] daily. doxycycline 2022-0 Yes [id number] 100mg Take 1 Univers monohydrate 8-25 capsule by it y of 100 mg 00:00: mouth in [place] capsule 00 the Medical morning Branch and 1 capsule in the evening. Take with meals. clindamycin 2022-0 Yes [id number] Apply to Univers 1 % gel 8-25 affected ity of 00:00: area(s) 2 [place] [address] ([facility] Medical times [place] daily. doxycycline 2022-0 Yes [id number] 100mg Take 1 Univers monohydrate 8-25 capsule by it y of 100 mg 00:00: mouth in [place] capsule 00 the Medical morning Branch and 1 capsule in the evening. Take with meals. clindamycin 2-0 Yes [id number] Apply to Univers 1 % gel 8-25 affected ity of 00:00: area(s) 2 [place] [address] (two) Medical times Branch daily. doxycycline 2022-0 Yes [id number] 100mg Take 1 Univers monohydrate 8-25 capsule by it y of 100 mg 00:00: mouth in [facility] Medical morning Branch and 1 capsule in the evening. Take with meals. clindamycin 2022-0 Yes [id number] Apply to Univers 1 % gel 8-25 affected ity of 00:00: area(s) 2 [place] [address] (two) Medical times [place] daily. TAKE 1 2021-0 No 125 TABLET BY 8-19 MOUTH EVERY 00:00: DAY IN THE 00 MORNING TAKE 1 2021-0 No 125 TABLET BY 8-19 MOUTH EVERY 00:00: DAY IN THE 00 MORNING &lt 2022-0 No 8-15 00:00: 00 &lt 2022-0 No 8-15 00:00: 00 BENZONATATE 202-0 No CAP 100MG 8-12 00:00: 00 BENZONATATE 2022-0 No CAP 100MG 8-12 00:00: 00 &lt 2022-0 No 500 8-09 00:00: 00 &lt 2022-0 No 500 8-09 00:00: 00 Immunizations Ordered Filled Immunization Date Status Comments [facility] e Immunization Name Name Rho (d) Immune 2019-03-25 Completed University of Globulin 00:00:00 [facility] Rho (d) Immune 2019-03-25 Completed University of Globulin 00:00:00 [facility] Rho (d) Immune 2019-03-25 Completed University of Globulin 00:00:00 [facility] Rho (d) Immune 2019-03-25 Completed University of Globulin 00:00:00 [facility] Rho (d) Immune 2019-03-25 Completed University of Globulin 00:00:00 [facility] Rho (d) Immune 2019-03-25 Completed University of Globulin 00:00:00 [facility] Rho (d) Immune 2019-03-25 Completed University of Globulin 00:00:00 [facility] Rho (d) Immune 2019-03-25 Completed University of Globulin 00:00:00 [facility] TDAP 2019-01-30 Completed University of 00:00:00 [place] [facility] Rho (d) Immune 2019-01-30 Completed University of Globulin 00:00:00 [facility] TDAP 2019-01-30 Completed University of 00:00:00 [facility] Branch Rho (d) Immune 2019-01-30 Completed University of Globulin 00:00:00 [facility] Branch TDAP 2019-01-30 Completed University of 00:00:00 [facility] Branch Rho (d) Immune 2019-01-30 Completed University of Globulin 00:00:00 [facility] Branch TDAP 2019-01-30 Completed University of 00:00:00 [facility] Rho (d) Immune 2019-01-30 Completed University of Globulin 00:00:00 [facility] TDAP 2019-01-30 Completed University of 00:00:00 [facility] Rho (d) Immune 2019-01-30 Completed University of Globulin 00:00:00 [facility] TDAP 2019-01-30 Completed University of 00:00:00 [facility] Rho (d) Immune 2019-01-30 Completed University of Globulin 00:00:00 [facility] TDAP 2019-01-30 Completed University of 00:00:00 [facility] Rho (d) Immune 2019-01-30 Completed University of Globulin 00:00:00 [facility] TDAP 2019-01-30 Completed University of 00:00:00 [facility] Rho (d) Immune 2019-01-30 Completed University of Globulin 00:00:00 [facility] Rho (d) Immune 2015-05-12 Completed University of Globulin 00:00:00 [facility] Rho (d) Immune 2015-05-12 Completed University of Globulin 00:00:00 [facility] Branch Rho (d) Immune 2015-05-12 Completed University of Globulin 00:00:00 [facility] Branch Rho (d) Immune 2015-05-12 Completed University of Globulin 00:00:00 [facility] Branch Rho (d) Immune 2015-05-12 Completed University of Globulin 00:00:00 [facility] Branch Rho (d) Immune 2015-05-12 Completed University of Globulin 00:00:00 [facility] Branch Rho (d) Immune 2015-05-12 Completed University of Globulin 00:00:00 [facility] Branch Rho (d) Immune 2015-05-12 Completed University of Globulin 00:00:00 [facility] TDAP 2015-03-14 Completed University of 00:00:00 [facility] Branch Rho (d) Immune 2015-03-14 Completed University of Globulin 00:00:00 [facility] Branch TDAP 2015-03-14 Completed University of 00:00:00 [facility] Branch Rho (d) Immune 2015-03-14 Completed University of Globulin 00:00:00 [facility] Branch TDAP 2015-03-14 Completed University of 00:00:00 [facility] Branch Rho (d) Immune 2015-03-14 Completed University of Globulin 00:00:00 [facility] Branch TDAP 2015-03-14 Completed University of 00:00:00 [facility] Branch Rho (d) Immune 2015-03-14 Completed University of Globulin 00:00:00 [facility] Branch TDAP 2015-03-14 Completed University of 00:00:00 [facility] Branch Rho (d) Immune 2015-03-14 Completed University of Globulin 00:00:00 [facility] Branch TDAP 2015-03-14 Completed University of 00:00:00 [facility] Branch Rho (d) Immune 2015-03-14 Completed University of Globulin 00:00:00 [facility] Branch TDAP 2015-03-14 Completed University of 00:00:00 [facility] Branch Rho (d) Immune 2015-03-14 Completed University of Globulin 00:00:00 [facility] Branch TDAP 2015-03-14 Completed University of 00:00:00 [facility] Branch Rho (d) Immune 2015-03-14 Completed University of Globulin 00:00:00 [facility] Branch Rho (d) Immune 2014-10-14 Completed University of Globulin 00:00:00 [facility] Branch Rho (d) Immune 2014-10-14 Completed University of Globulin 00:00:00 [facility] Branch Rho (d) Immune 2014-10-14 Completed University of Globulin 00:00:00 [facility] Branch Rho (d) Immune 2014-10-14 Completed University of Globulin 00:00:00 [facility] Branch Rho (d) Immune 2014-10-14 Completed University of Globulin 00:00:00 [facility] Branch Rho (d) Immune 2014-10-14 Completed University of Globulin 00:00:00 [facility] Branch Rho (d) Immune 2014-10-14 Completed University of Globulin 00:00:00 [facility] Branch Rho (d) Immune 2014-10-14 Completed University of Globulin 00:00:00 [facility] Branch TDAP 2012-02-09 Completed University of 00:00:00 [facility] Branch TDAP 2012-02-09 Completed University of 00:00:00 [facility] TDAP 2012-02-09 Completed University of 00:00:00 [facility] TDAP 2012-02-09 Completed University of 00:00:00 [facility] Branch TDAP 2012-02-09 Completed University of 00:00:00 [place] [facility] TDAP 2012-02-09 Completed University of 00:00:00 [facility] Branch TDAP 2012-02-09 Completed University of 00:00:00 [facility] Branch TDAP 2012-02-09 Completed University of 00:00:00 [facility] Vital Signs Vital Name Observation Time Observation Value Comments Source Systolic blood 2021-11-18 23:03:00 150 mm[Hg] Univer sity of pressure [facility] Diastolic blood 2021-11-18 23:03:00 90 mm[Hg] Unive rsity of pressure [facility] Heart rate 2021-11-18 23:03:00 88 /min [facility] Body temperature 2021-11-18 23:03:00 36.94 Ngoc [facility] Respiratory rate 2021-11-18 23:03:00 16 /min [facility] Body height 2021-11-18 23:03:00 170.2 cm [facility] Body weight 2021-11-18 23:03:00 137.349 kg [facility] BMI 2021-11-18 23:03:00 47.43 kg/m2 [facility] Oxygen saturation in 2021-11-18 23:03:00 99 /min [facility] Arterial blood by [facility] [place] [facility] Pulse oximetry Branch BP Systolic 2021-11-24 08:30:00 [...] e XR SPINE THORACIC 3 2021-11-19 00:00:00 EbAnthony lopes [facility] Branch XR LUMBAR SPINE 3 VW 2021-11-18 23:50:00 Anthony Briones [facility] XR KNEE 3 VW LEFT 2021-11-18 23:40:00 Anthony Briones [facility] XR FOREARM 2 VW LEFT 2021-11-18 23:24:00 Anthony Briones [facility] XR WRIST 3+ VW LEFT 2021-11-18 23:15:00 Anthony Briones [facility] Plan of Care Planned Activity Planned Date Details Comments Source Goal Plan of Care Note [code = 42414-9] Goal Plan of Care Note [code = 11878-4] Goal Plan of Care Note [code = 80138-3] Goal Plan of Care Note [code = 89232-3] Goal Plan of Care Note [code = 46726-9] Goal Plan of Care Note [code = 80615-9] Goal Plan of Care Note [code = 13390-0] Goal Plan of Care Note [code = 05427-4] Goal Plan of Care Note [code = 94365-4] Goal Plan of Care Note [code = 24444-9] Goal Plan of Care Note [code = 06364-0] Goal Plan of Care Note [code = 42823-3] Encounters Start End Encounter Admission Attending Care Care Encounter Source Date/Time Date/Time Type Type Clinicians Facility Department ID 2021-12-17 2021-12-17 Outpatient Keke LUZ [facility] [id number] [facility] 11:00:00 11:00:00 IDA [facility] 2021-11-24 2021-11-24 Outpatient [facility] [id number] [place] 08:15:56 08:15:56 [id number] F Rhys 2021-11-24 2021-11-24 Outpatient [id number] 00:00:00 00:00:00 Visit [id number] 2021-11-19 2021-11-19 [facility] [id number] [facility] 00:00:00 00:00:00 Rania HEALTH [id number] it y of [place] [id number] [place] DESIRAE?BLEA [phone] [facility] [address] [facility] OFFICE [facility] 2021-11-18 2021-11-18 [facility] [id number] Univers 18:09:31 23:59:00 Encounter Rania HEALTH [id number] ity of [place] 4.2.7.2.686 [place] DESIRAE?BLEA [id number] [address] 2021-11-18 2021-11-18 [facility] [id number] Univers 18:09:30 23:59:00 Encounter Rania HEALTH [id number] ity of [place] [id number] [place] DESIRAE?BLEA [id number] [address] OFFICE [facility] 2021-11-18 2021-11-18 [facility] [id number] Univers 18:09:30 23:59:00 Encounter Rania HEALTH [id number] ity of [place] 4.2.7.2.686 [place] DESIRAE?BLEA [id number] [address] 2021-11-18 2021-11-18 [facility] [id number] Univers 18:09:29 23:59:00 [facility] [id number] ity of [place] 4.2.7.2.686 [place] DESIRAE?BLEA [id number] [facility] [address] [place] MEDICAL OFFICE [facility] 2021-11-18 2021-11-18 [facility] [id number] Univers 18:09:29 23:59:00 [facility] [id number] [facility] 4.2.7.2.686 [place] DESIRAE?BLEA [id number] [address] OFFICE [facility] 2021-11-18 2021-11-18 [facility] [id number] Univers 18:09:29 23:59:00 [facility] 2021-11-18 2021-11-18 Urgent [facility] [id number] Univers 18:00:00 18:54:25 Care Unknown, [facility] HEALTH [id number] ity of [place] 4.2.7.2.686 [place] DESIRAE?BLEA [id number] [facility] [address] [facility] OFFICE [facility] 2021-10-02 2021-10-02 Office Faby Stallings [facility] [id number] Univers 15:30:00 15:45:00 [facility] [id number] i ty of [place] 4[place] [id number] [address] 2021-10-02 2021-10-02 Outpatient R FABY STALLINGS [facility] [id number] Univers 15:30:00 15:30:00 ity [facility] 2021-09-22 2021-09-22 Outpatient [id number] 00:00:00 00:00:00 Visit [id number] 2021-09-08 2021-09-08 Office Go [facility] [id number] Univers 09:30:00 11:12:16 Visit Monibryce Keke [employer] [id number] ity of [facility] [id number] [place] MATERNAL [id number] [facility] ical & CHILD [address] [place] [address] 2021-09-08 2021-09-08 [facility] [id number] Univers 09:30:00 11:12:16 YARITZA [place] [facility] 2021-09-08 2021-09-08 Outpatient [facility] [id number] Univers 09:30:00 11:12:16 MONIBRYCE [place] o [facility] 2021-09-08 2021-09-08 Outpatient Keke [facility] [id number] Univers 09:30:00 09:30:00 MONIBRYCE [place] o [facility] 2021-09-08 2021-09-08 Orders Doctor ABREU 1.2.840.114 [id number] Univers 00:00:00 00:00:00 Only Unassigned, FER 350.1.13.[address] [place] [facility] 4.2.7.2.686 [place] [phone] [facility] [address] 2021-08-28 2021-08-28 Outpatient Keke [facility] [id number] Univers 08:45:00 08:45:00 MONIBRYCE whitey o [facility] 2021 2021 Telephone BRADY Alfredo [id number] Univers 00:00:00 00:00:00 Prema MONROE 350.1.13.10 it y of [facility] 4.2.7.2.686 [place] [phone] [facility] [address] 2021-01-07 2021-01-07 Urgent Garret Owen [facility] 1.2.840.114 [id number] Univers 14:26:41 15:03:00 Care Unknown, Attending HEALTH 350.1.13.10 ity [facility] 4.2.7.2.686 [place] DESIRAE?BLEA [phone] Me dic[address] OFFICE [facility] 2021-01-07 2021-01-07 Outpatient R DERRICK [facility] [id number] Univers 14:30:00 14:52:05 GARRET ittyler [facility] 2021-01-07 2021-01-07 Laboratory Only, Ang Db Test [facility] 1.2.8 40.114 [id number] Univers 14:17:25 14:32:25 Only Unknown, Attending [facility].13.10 [facility] 4.2.7.2.686 [place] DESIRAE?BLEA [phone] [address] OFFICE [facility] 2020-08-28 2020-08-28 Office [facility] 1.2.840.114 [id number] Univers 08:17:40 09:18:27 Visit [facility] R BEEF CATTLE GRAZIER 350.1.13.10 ity of [facility] 4.2.7.2.686 [place] MATERNAL [phone] Med ical & CHILD [address] [place] [address] 2020-08-28 2020-08-28 Outpatient R GO [facility] [id number] Univers 08:15:00 08:15:00 YARITZA [place] o f [facility] 2020-07-29 2020-07-29 Outpatient R GO [facility] [id number] Univers 09:45:00 09:45:00 KATHERINEA ity o f [facility] 2020-04-30 2020-04-30 Patient Casey [facility] 1.2.840.114 [id number] Univers 00:00:00 00:00:00 Outreach Robb [facility] 350.1.13.10 i ty of [facility] 4.2.7.2.[place] [phone] [address] 2019-07-27 2019-07-27 Office [facility] 1.2.840.114 [id number] Univers 08:41:44 09:33:41 Visit [facility] R BEEF CATTLE GRAZIER 350.1.13.10 ity of [facility] 4.2.7.2.686 [place] MATERNAL [phone] [facility] ical & CHILD [address] [place] [address] 2019-07-27 2019-07-27 Outpatient Keke STILES [facility] [id number] Univers 08:30:00 08:30:00 YARITZA ledesma [facility] 2019-05-08 2019-05-08 Outpatient Keke STILES [facility] [id number] Univers 10:30:00 10:30:00 YARITZA ledesma [facility] 2019-04-14 2019-04-14 Routine Go [facility] 1.2.840.114 [id number] Univers 10:48:54 12:49:58 Yaritza R BEE[employer] CATTLE GRAZIER 350.1.13.10 ity of Visit REGIONAL 4.2.7.2.686 [place] MATERNAL [phone] [facility] & CHILD [address] [place] [address] 2019-04-14 2019-04-14 Outpatient Keke STILES [facility] [id number] Univers 10:45:00 10:45:00 YARITZA ledesma [facility] 2019-03-31 2019-03-31 Nurse Visit, Oswaldchp Nurse [facility] 1.2 .840.114 [id number] Univers 11:31:31 12:03:46 Visit Janice Norman BEE[employer] GRAZIER 350.1.13. 10 ity of [facility] 4.2.7.2.686 [place] MATERNAL [phone] [facility] & CHILD [address] [place] [address] 2019-03-16 2019-03-26 [facility] BaerBRADY 1.2.840.114 [id number] Univers 19:23:00 15:35:00 Encounter Haley [place]E 350.1.13.10 ity of [facility] 4.2.7.2.686 [place] [phone] [place] [address] [place] 2019-03-16 2019-03-20 Routine Risk, Gjc-Psnpl-Fv/High [facility] 1. 2.840.114 [id number] Univers 13:53:42 08:51:45 Yaritza Stiles R BEEF CATTLE GRAZIER 350.1.13.1 0 ity of Visit Georgette Rossi [facility] 4.2.7.2.686 [place] MATERNAL [phone] [facility] ical & CHILD [address] [place] [address] 2019-03-08 2019-03-08 Abstract Go [facility] 1.2.840.114 [id number] Univers 00:00:00 00:00:00 Roshunda R BEEF CATTLE GRAZIER 350.1.13.10 ity of REGIONAL 4.2.7.2.686 [place] MATERNAL [phone] Med ical & CHILD 107 [facility] 2019-03-06 2019-03-06 Case Go [facility] 1.2.840.114 [id number] Univers 00:00:00 00:00:00 Management Roshunda R BEE[employer] CATTLE GRAZIER 350.1.13.10 ity of REGIONAL 4.2.7.2.686 [place] MATERNAL [phone] Med ical & CHILD 107 [facility] 2019-02-28 2019-02-28 Routine Go [facility] 1.2.840.114 [id number] Univers 13:33:03 14:12:00 Roshunda R BEEF CATTLE GRAZIER 350.1.13.10 ity of Visit REGIONAL 4.2.7.2.686 [place] MATERNAL [phone] Med ical & CHILD 107 [facility] 2019-02-13 2019-02-13 Orders Doctor BRADY 1.2.840.114 [id number] Univers 00:00:00 00:00:00 Only Unassigned, FER 350.1.13.[address] [place] [facility] 4.2.7.2.686 [place] [phone] [facility] [address] 2018-10-16 2018-10-16 BRADY White 1.2.840.114 [id number] Univers 00:00:00 00:00:00 Triage Luh Morejon FER 350.1.13.10 ity of HOSPITAL 4.2.7.2.686 [place] [phone] [facility] [address] 2018-10-12 2018-10-12 Routine Isaiahangela [facility] 1.2.257.745 [id number] Univers 16:04:22 16:56:50 Janice C BEE[employer] C[employer] GRAZIER 350.1.13.10 ity of Visit REGIONAL 4.2.7.2.686 [place] MATERNAL [phone] Med ical & CHILD 107 [facility] 2018-09-21 2018-09-21 Telephone Tong [facility] 1.2.840.114 [id number] Univers 00:00:00 00:00:00 Nessa Wahl BEEF CATTLE GRAZIER 350.1.13.10 it y of [facility] 4.2.7.2.686 [place] MATERNAL [phone] [address] 2018-09-05 2018-09-08 Office Faculty, Steven Deanshane [facility] 1.2 .840.114 [id number] Univers 09:52:24 09:14:29 Visit NavneetUrsula wahl Winter BEE[employer] CATTLE GRAZIER 350.1.13 .10 ity [facility] 4.2.7.2.686 [place] MATERNAL [phone] [facility] CHILD [address] [place] [address] 2018-09-08 2018-09-08 Telephone Ursula Toth 1.2.840.114 [id number] Univers 00:00:00 [facility]:00:[facility] 350.1.13.10 ity of [facility] 4.2.7.2.[place] [phone] [address] Results Test Description Test Time Test Comments Results Result Comments Source COMPREHENSIVE METABOLIC PANEL 2021-09-25 05:41:42 Test Item Value Reference Range Interpretation Comme nts GLUCOSE (test code = 2217) 93 MG/DL 70-99 BUN (test code = 2208) 9 MG/DL 6-20 CREATININE (test code = 0.83 MG/DL 0.60-1.30 2213) eGFR (2020 CKD-EPI) (test 98 ML/MIN/1.73 >60 code = 64930) CALC BUN/CREAT (test code = 11 RATIO 6-28 5) SODIUM (test code = 2231) 137 MEQ/L 133-146 POTASSIUM (test code = 2228) 4.4 MEQ/L 3.5-5.4 CHLORIDE (test code = 2215) 99 MEQ/L 95-107 CARBON DIOXIDE (test code = 26 MEQ/L 19-31 2205) CALCIUM (test code = 2209) 9.9 [...] code = 2219) 6 U/L 5-40 LIPID [id number] 05:41:42 Test Item Value Reference Range Interpretation [...] MOREINFORMATION , SEE CLIENT ANNOUNCE MENT AT [email or web address] [email or web address] [email or web address] LDL/HDL 2.39 RATIO <3.22 UNLESS O THERWISE (test code = 2238) INDICATED , ALL TESTING PERFORMED [facility], [place]. [address] [facility] [place] [address] [facility] DIRECTOR: KENNY OLIVEIRA M.D. CLIA NUMBER [id number] CAP ACCREDITATION N O. [id number] LIPID [id number] 00:00:00 Test Item Value Reference Range Interpretation Comments CHOLESTEROL (test code = 2210) 152 MG/DL TRIGLYCERIDES (test code = 2232) 133 MG/DL HDL CHOLESTEROL (test code = 2220) 38 MG/DL CALC LDL CHOL (test code = 2237) 91 MG/DL RISK RATIO LDL/HDL (test code = 2.39 RATIO 2238) LIPID [id number] 00:00:00 Test Item Value Reference Range Interpretation Comments CHOLESTEROL (test code = 2210) 152 MG/DL TRIGLYCERIDES (test code = 2232) 133 MG/DL HDL CHOLESTEROL (test code = 2220) 38 MG/DL CALC LDL CHOL (test code = 2237) 91 MG/DL RISK RATIO LDL/HDL (test code = 2.39 RATIO 2238) COMPREHENSIVE METABOLIC [id number] 00:00:00 Test Item Value Reference Range Interpretation Comments GLUCOSE (test code = 2217) 93 MG/DL BUN (test code = 2208) 9 MG/DL CREATININE (test code = 2214) 0.83 MG/DL eGFR (2020 CKD-EPI) (test code 98 ML/MIN/1.73 = 90257) CALC BUN/CREAT (test code = 11 RATIO [...] A/G RATIO (test code = 1.1 RATIO 4) BILIRUBIN, TOTAL (test code = 0.3 MG/DL 2206) ALKALINE PHOSPHATASE (test 87 U/L code = 2204) AST (test code = 2218) 11 U/L ALT (test code = 2219) 6 U/L COMPREHENSIVE METABOLIC [id number] 00:00:00 Test Item Value Reference Range Interpretation Comments GLUCOSE (test code = 2217) 93 MG/DL BUN (test code = 2208) 9 MG/DL CREATININE (test code = 2214) 0.83 MG/DL eGFR (2020 CKD-EPI) (test code 98 ML/MIN/1.73 = 36965) CALC BUN/CREAT (test code = 11 RATIO [...] (test code = 2219) 6 U/L LIPID [id number] 00:00:00 Test Item Value Reference Range Interpretation Comments CHOLESTEROL (test code = 2210) 152 MG/DL TRIGLYCERIDES (test code = 2232) 133 MG/DL HDL CHOLESTEROL (test code = 2220) 38 MG/DL CALC LDL CHOL (test code = 2237) 91 MG/DL RISK RATIO LDL/HDL (test code = 2.39 RATIO 2238) LIPID [id number] 00:00:00 Test Item Value Reference Range Interpretation Comments CHOLESTEROL (test code = 2210) 152 MG/DL TRIGLYCERIDES (test code = 2232) 133 MG/DL HDL CHOLESTEROL (test code = 2220) 38 MG/DL CALC LDL CHOL (test code = 2237) 91 MG/DL RISK RATIO LDL/HDL (test code = 2.39 RATIO 2238) COMPREHENSIVE METABOLIC [id number] 00:00:00 Test Item Value Reference Range Interpretation Comments GLUCOSE (test code = 2217) 93 MG/DL BUN (test code = 2208) 9 MG/DL CREATININE (test code = 2214) 0.83 MG/DL eGFR (2020 CKD-EPI) (test code 98 ML/MIN/1.73 = 09951) CALC BUN/CREAT (test code = 11 RATIO [...] A/G RATIO (test code = 1.1 RATIO 223) BILIRUBIN, TOTAL (test code = 0.3 MG/DL 2206) ALKALINE PHOSPHATASE (test 87 U/L code = 220) AST (test code = 2218) 11 U/L ALT (test code = 2219) 6 U/L COMPREHENSIVE METABOLIC [id number] 00:00:00 Test Item Value Reference Range Interpretation Comments GLUCOSE (test code = 2217) 93 MG/DL BUN (test code = 2208) 9 MG/DL CREATININE (test code = 2214) 0.83 MG/DL eGFR (2020 CKD-EPI) (test code 98 ML/MIN/1.73 = 42805) CALC BUN/CREAT (test code = 11 RATIO [...]
[2022-02-28] MEDS ORDERED: HYDROCODONE/CHLORPHEN 5 ML/OSYR ONE (21:25)
[2022-02-28] MEDS ORDERED: IBUPROFEN 400 MG TAB ONE (21:25)
[2022-02-28 21:36] LABS: Urine Blood Negative (Negative); Urine Glucose Negative (Negative); Urine Protein 2+ (Negative); Urine Specific Gravity 1.025 (1.005-1.030)
[2022-02-28 22:08] LABS: Urine Specific Gravity/Preg 1.025 (1.005-1.030)
[2022-02-28 22:20] LABS: SARS-COV-2 RT PCR POSITIVE (NEGATIVE)
--- NOTE | 2022-02-28 22:31 | RAD REPORT ---
EXAM DESCRIPTION: RAD - Chest Single View - 02/28/2022 9:51 pm CLINICAL HISTORY: COUGH, positive at home COVID test COMPARISON: Two view chest 04/05/2016 TECHNIQUE: AP portable chest image was obtained 02/28/2022 9:51 pm . FINDINGS: Lung jordan are clear. Left hemidiaphragm elevation is again noted. No significant failure or volume overload. Heart size is upper normal or slightly enlarged. Upper lobe vasculature within normal limits. No aidan surable pleural effusion and no pneumothorax. No acute bony abnormality seen. No acute aortic finding s suspected. IMPRESSION: No acute cardiopulmonary process.
--- NOTE | 2022-02-28 22:38 | ER ---
Nurse's Notes [facility] Name: Monae Mccallum Age: 27 yrs Sex: Female : 1995 Arrival Date: 02/28/2022 Time: 20:32 Bed 19 Private MD: Diagnosis: SARS-associated coronavirus as the cause of diseases classified elsewhere Presentation: 02/28 20:44 Chief complaint: Patient states: "I took a Covid test at home and it came back tw5 positive. I feel short of breath, congested and light headed with a throbbing headache.". Coronavirus screen: Vaccine status: Patient reports being unvaccinated. Ebola Screen: Patient negative for fever greater than or equal to 101.5 degrees Fahrenheit, and additional compatible Ebola Virus Disease symptoms Patient denies exposure to infectious person. Patient denies travel to an Ebola-affected area in the 21 days before illness onset. Initial Sepsis Screen: Does the patient meet any 2 criteria? HR > 90 bpm. Does the patient have a suspected source of infection? No. Patient's initial sepsis screen is negative. Risk Assessment: Do you want to hurt yourself or someone else? Patient reports no desire to harm self or others. Onset of symptoms was February 26, 2022. 20:44 Method Of Arrival: Ambulatory tw5 20:44 Acuity: EMA 4 tw5 Triage Assessment: 20:45 General: Appears in no apparent distress. obese, Behavior is cooperative, appropriate tw5 for age. Pain: Complains of pain in chest Pain currently is 8 out of 10 on a pain scale. Respiratory: Reports shortness of breath on exertion Onset: The symptoms/episode began/occurred gradually, the patient has mild shortness of breath. 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 - Social history:: Smoking status: Patient denies any tobacco usage or history of. Screenin:46 [facility] ED Fall Risk Assessment (Adult) History of falling in the last 3 months, tw5 including since admission. Abuse screen: Denies threats or abuse. Denies injuries from another. Nutritional screening: No deficits noted. Tuberculosis screening: No symptoms or risk factors identified. Assessment: 20:50 General: Appears in no apparent distress. comfortable, obese, well groomed, well pf1 developed, Behavior is calm, cooperative, appropriate for age, quiet. 20:50 Pain: Complains of pain in head Pain currently is 8 out of 10 on a pain scale. Neuro: pf1 Level of Consciousness is awake, alert, obeys commands, Oriented to person, place, time, situation, Reports headache. Cardiovascular: Reports shortness of breath, Capillary refill < 3 seconds Patient's skin is warm and dry. Respiratory: Airway is patent Trachea midline Respiratory effort is even, unlabored, Respiratory pattern is regular, symmetrical, Breath sounds are clear bilaterally. GI: No deficits noted. No signs and/or symptoms were reported involving the gastrointestinal system. Abdomen is round non-distended, Bowel sounds present X 4 quads. : No deficits noted. No signs and/or symptoms were reported regarding the genitourinary system. EENT: Reports pain sore throat. Derm: No deficits noted. 22:46 Cardiovascular: Rhythm is. tw5 Vital Signs: 20:44 BP 152 / 90; Pulse 103; Resp 22; Temp 99.1; Pulse Ox 100% ; Weight 138.8 kg; Height 5 tw5 ft. 7 in. (170.18 cm); Pain 8/10; 21:30 BP 125 / 83; Pulse 78; Resp 16; Pulse Ox 100% on R/A; pf1 22:15 BP 127 / 62; Pulse 72; Resp 19; Temp 99(O); Pulse Ox 98% on R/A; Pain 5/10; pf1 20:44 Body Mass Index 47.93 (138.80 kg, 170.18 cm) tw5 ED Course: 20:32 Patient arrived in ED. jj6 20:34 Dani Samano PA is PHCP. cp 20:34 Emmanuel Jurado MD is Attending Physician. cp 20:45 Triage completed. tw5 20:45 Arm band placed on Patient placed in an exam room, on a stretcher, on pulse oximetry. tw5 21:07 Lani corado, CARLEEN is Primary Nurse. pf1 21:42 Strep Sent. pf1 21:42 COVID-19/FLU A+B Sent. pf1 21:52 XRAY Chest (1 view) In Process Unspecified. EDMS 22:46 Patient has correct armband on for positive identification. Placed in gown. Bed in low tw5 position. Call light in reach. Side rails up X 1. Pulse ox on. NIBP on. Door closed. Noise minimized. Lights dimmed. Warm blanket given. 22:46 No provider procedures requiring assistance completed. Patient did not have IV access tw5 during this emergency room visit. Administered Medications: 21:35 Drug: Ibuprofen 800 mg Route: PO; pf1 22:30 Follow up: Response: No adverse reaction; Marked relief of symptoms; Pain is decreased; pf1 RASS: Alert and Calm (0) 21:35 Drug: Tussionex Pennkinetic ER (chlorpheniramine-hydrocodone) Suspension 5 ml Route: PO;pf1 22:11 Follow up: Response: No adverse reaction; Marked relief of symptoms; RASS: Alert and pf1 Calm (0) Medication: 22:47 VIS not applicable for this client. tw5 Outcome: 22:37 Discharge ordered by . jamin 22:46 Discharged to home ambulatory. tw5 22:46 Condition: stable 22:46 Discharge instructions given to patient, Instructed on discharge instructions, follow up and referral plans. medication usage, Demonstrated understanding of instructions, follow-up care, medications, Prescriptions given X 3. 22:47 Patient left the ED. tw5 Signatures: Dispatcher [employer] EDDC Dani Samano PA PA cp Wood, Tiffany tw5 Madhavi Quinn6 Lani corado, RN RN pf1
--- NOTE | 2022-02-28 22:38 | EDPHYS ---
Physician Documentation [facility] Name: Monae Mccallum Age: 27 yrs Sex: Female : 1995 Arrival Date: 02/28/2022 Time: 20:32 Bed 19 Private MD: ED Physician Emmanuel Jurado HPI: 02/28 21:00 This 27 yrs old Black Female presents to ER via Ambulatory with complaints of COVID+, cp Shortness Of Breath. 21:00 The patient has shortness of breath with light activity. cp 21:00 Associated signs and symptoms: Pertinent positives: chest pain, fever, cough. Severity cp of symptoms: in the emergency department the symptoms are unchanged despite home interventions. Patient reports testing positive for COVID-19 with home test today. Symptoms started 3 days ago. Reports headache, body aches. [employer]: 22:15 unknown pf1 Historical: - Allergies: 20:45 No Known Allergies; tw5 - Home Meds: 20:45 None [Active]; tw5 - PMHx: 20:45 ASD; Hypertension; tw5 - PSHx: 20:45 heart procedure when she was younger; ASD Repair 2008; tw5 - Immunization history:: Flu vaccine is not up to date. - Social history:: Smoking status: Patient denies any tobacco usage or history of. ROS: 21:05 Constitutional: Positive for body aches, Negative for fever, poor PO intake. cp 21:05 Eyes: Negative for injury, pain, redness, and discharge. cp 21:05 ENT: Positive for sore throat, Negative for drainage from ear(s), ear pain, difficulty swallowing, difficulty handling secretions. 21:05 Cardiovascular: Positive for chest pain, with cough. 21:05 Respiratory: Positive for cough, "sounds productive", shortness of breath. 21:05 Abdomen/GI: Negative for vomiting, diarrhea, constipation. 21:05 Back: Negative for pain at rest, pain with movement. 21:05 Skin: Negative for rash. 21:05 Neuro: Positive for headache, Negative for altered mental status, weakness. 21:05 All other systems are negative. Exam: 21:10 Constitutional: The patient appears in no acute distress, alert, awake, non-toxic, well cp developed, well nourished, uncomfortable. 21:10 Head/Face: Normocephalic, atraumatic. cp 21:10 Eyes: Periorbital structures: appear normal, Conjunctiva: normal, no exudate, Sclera: no appreciated abnormality, Lids and lashes: appear normal, bilaterally. 21:10 ENT: External ear(s): are unremarkable, Ear canal(s): are normal, clear, TM's: dullness, bilaterally, Nose: is normal, Mouth: Lips: moist, Oral mucosa: moist, Posterior pharynx: Airway: no evidence of obstruction, patent, Tonsils: with erythema, no enlargement, no exudate, erythema, that is mild, exudate, is not appreciated. 21:10 Neck: ROM/movement: is normal, is supple, no meningismus, no nuchal rigidity, Lymph nodes: no appreciated lymphadenopathy. 21:10 Chest/axilla: Inspection: normal. 21:10 Cardiovascular: Rate: tachycardic, Rhythm: regular. 21:10 Respiratory: the patient does not display signs of respiratory distress, Respirations: tachypnea, that is mild, Breath sounds: decreased breath sounds, are not appreciated, stridor, is not appreciated, + upper airway congestion. wheezing: is not appreciated. 21:10 Abdomen/GI: Inspection: obese Palpation: abdomen is soft and non-tender, in all quadrants. 21:10 Skin: no rash present. 21:10 Neuro: Orientation: to person, place \\T\\ time. Mentation: is normal, Motor: moves all fours, strength is normal, Sensation: is normal, Gait: is steady, at a normal pace, without difficulty. Vital Signs: 20:44 BP 152 / 90; Pulse 103; Resp 22; Temp 99.1; Pulse Ox 100% ; Weight 138.8 kg; Height 5 tw5 ft. 7 in. (170.18 cm); Pain 8/10; 21:30 BP 125 / 83; Pulse 78; Resp 16; Pulse Ox 100% on R/A; pf1 22:15 BP 127 / 62; Pulse 72; Resp 19; Temp 99(O); Pulse Ox 98% on R/A; Pain 5/10; pf1 20:44 Body Mass Index 47.93 (138.80 kg, 170.18 cm) tw5 MDM: 20:39 Patient medically screened. cp 22:37 Data reviewed: vital signs, nurses notes, lab test result(s), radiologic studies, plain cp films. 22:37 Antibiotic administration: Not indicated, the patient has a suspected viral illness. cp Consideration of Admission/Observation Escalation of care including admission/observation considered. I considered the following discharge prescriptions or medication management in the emergency department Medications were administered in the Emergency Department. See MAR. Independent interpretation of the following test(s) in the Emergency Department X-Ray: My interpretation is chest xray negative for infiltrates. Test considered but Not performed: Labs: cbc, bmp, d-dimer. Care significantly affected by the following chronic conditions: Hypertension. Counseling: I had a detailed discussion with the patient and/or guardian regarding: the historical points, exam findings, and any diagnostic results supporting the discharge/admit diagnosis, lab results, to return to the emergency department if symptoms worsen or persist or if there are any questions or concerns that arise at home. Response to treatment: the patient's symptoms have markedly improved after treatment, and as a result, I will discharge patient. 02/28 20:59 Order name: COVID-19/FLU A+B; Complete Time: 22:36 cp 02/28 20:59 Order name: Strep; Complete Time: 22:36 cp 02/28 21:37 Order name: Urine Dipstick-Ancillary; Complete Time: 21:41 [facility] 02/28 21:41 Interpretation: UPROT 2+; Reviewed. 02/28 21:37 Order name: Urine --Ancillary (enter results); Complete Time: 22:36 wm 02/28 21:39 Order name: XRAY Chest (1 view); Complete Time: 22:36 cp 02/28 21:55 Order name: Throat Culture EDVT 02/28 20:59 Order name: Urine Test (obtain specimen); Complete Time: 21:42 cp 02/28 20:59 Order name: Urine Dipstick-Ancillary (obtain specimen); Complete Time: 21:42 cp Administered Medications: 21:35 Drug: Ibuprofen 800 mg Route: PO; pf1 22:30 Follow up: Response: No adverse reaction; Marked relief of symptoms; Pain is decreased; pf1 RASS: Alert and Calm (0) 21:35 Drug: Tussionex Pennkinetic ER (chlorpheniramine-hydrocodone) Suspension 5 ml Route: PO;pf1 22:11 Follow up: Response: No adverse reaction; Marked relief of symptoms; RASS: Alert and pf1 Calm (0) Disposition: 03/01 22:00 Co-signature as Attending Physician, Emmanuel Jurado MD I reviewed the patient's care rt provided by the Advanced Practice Provider and agree with the diagnosis and treatment plan. Disposition Summary: 02/28/22 22:37 Discharge Ordered Location: Home cp Problem: new cp Symptoms: have improved cp Condition: Stable cp Diagnosis - SARS-associated coronavirus as the cause of diseases classified elsewhere cp Followup: cp - With: Private Physician - When: 2 - 3 days - Reason: Worsening of condition Discharge Instructions: - Discharge Summary Sheet cp - Aspirin and Your Heart cp - COVID-19 cp - Things to Know about the COVID-19 Pandemic - [facility] cp - 10 Things You Can Do to Manage Your COVID-19 Symptoms at Home - [facility] cp - COVID-19: Quarantine vs. Isolation - [facility] cp - Prevent the Spread of COVID-19 if You Are Sick - [facility] cp Forms: - Medication Reconciliation Form cp - Thank You Letter cp - Antibiotic Education cp - Prescription Opioid Use cp - Work release form tw5 Prescriptions: - Paxlovid (EUA) 150 mg x 2- 100 mg Oral tablet - take 3 tablet by ORAL route 2 times per day for 5 days per package directions; cp 30 tablet; Refills: 0, Product Selection Permitted - Ibuprofen 800 mg Oral Tablet - take 1 tablet by ORAL route every 8 hours As needed take with food; 30 tablet; cp Refills: 0, Product Selection Permitted - Bromfed DM 2-30-10 mg/5 mL Oral syrup - take 10 milliliter by ORAL route every 6 hours; 180 milliliter; Refills: 0, cp Product Selection Permitted Signatures: Dispatcher [employer] [facility] Dani Samano PA PA cp Wood, Tiffany tw5 Emmanuel Jurado MD MD rt Lani corado RN RN pf1
[2022-03-01 02:04] VITALS: BP 127/62; TEMP 99; O2SAT 98
== END 2022-02-28 22:47 | disposition home or self-care (01) ==
LOC: ER 20:30
DX: U07.1 COVID-19 (principal); I10 Essential (primary) hypertension
CPT/HCPCS: 0240U; 71045; 81003; 81025; 87070; 87081; 99284

== ENCOUNTER 2024-04-10 07:45 | Emergency (ER) | payer SELFPAY ==
--- OUTSIDE RECORDS SUMMARY | 2024-04-10 07:51 | XMS REPORT | Continuity of Care Document ---
Author Name Unknown Address [address] [facility] [address] [place] [address] [facility] thconnect Address [address] [facility] [address] [place] [address] Care Team Providers Care Brake Liner Name Role Phone Nessa Castillo Primary Care Physician Teresa Bunn MA Attending Clinician Unavail able JANICE NORMAN Attending Clinician Unavail able Janice Mars Attending Clinician + MARTA RAMOS Attending Clinician Unavailable DONNA ELIZABETH Attending Clinician Unavailable IDA LUZ Attending Clinician Unavailab Anthony Wood Attending Clinician [phone] ANTHONY BRIONES Attending Clinician Unavailable Unknown, Attending Attending Clinician Unavailab Faby Hughes MD Attending Clinician [phone] FABY STALLINGS Attending Clinician Unavailable Yaritza Perales Attending Clinician + [phone] YARITZA STILES Attending Clinician Unavailab le Doctor Unassigned, [place] Attending Clinician U damon Alfredo RN, Prema Attending Clinician Unavailable Garret Owen MD Attending Clinician [phone] GARRET OWEN Attending Clinician Unavailable Only, Ang Db Test Attending Clinician Unavailabl caterina Peña DO, Robb Marie Attending Clinician Visit, [facility] Nurse Attending Clinician Hans Norman [facility], Janice Shukla Attending Clinician + Keyur RICH, Haley Attending Clinician [phone] Risk, Ecb-Drwpz-Ud/High Attending Clinician Unav ailmelissa Celestinalacy [facility], Georgette Alba Attending Clinician [phone] Matthew DURANT, Luh Morejon Attending Clinician Samanta Fortune [employer], Nessa Lieberman Attending Clinician [phone] Faculty, Steven [facility] Attending Clinician Hans Toth MD, Ursula Max Attending Clinician [phone] Keyur RICH, Haley Admitting Clinician [phone] Payers Payer Name Policy Type Policy Number Effective Date Expirati on Date Source [facility] [id number] 2023 00:00:00 Problems Condition Name Condition Details Condition Category Status Onset Date Resolution Date Last Treatment Date Treating Clinician Comments Source Well woman exam Well woman exam Disease Active 2023-02 0-31 00:00: 00 [facility] Contracept ion management Contracept ion management Disease Active 18 00:00: 00 [facility] Encounter for surveillan ce of contracept william, unspecifie d contracept dina Encounter for surveillan ce of contracept william, unspecifie d contracept dina Disease Active 6-18 00:00: 00 [facility] Elevated blood pressure reading without diagnosis of hypertensi on Elevated blood pressure reading without diagnosis of hypertensi on Disease Active 6-18 00:00: 00 [facility] Bacterial vaginosis in Bacterial vaginosis in Disease Active 2-10 00:00: 00 [facility] History of bilateral tubal ligation History of bilateral tubal ligation Disease Active 1-08 00:00: 00 [facility] BMI 45.0-49.9, adult BMI 45.0-49.9, adult Disease Active 2018-02 00:00: 00 [facility] Gastroesop hageal reflux disease without esophagiti s Gastroesop hageal reflux disease without esophagiti s Disease Active 2018-02 00:00: 00 [facility] History of repair of congenital atrial septal defect (ASD) History of repair of congenital atrial septal defect (ASD) Disease Active 2018-02 00:00: 00 [facility] Chlamydia Chlamydia Disease Active 2018-02 00:00: 00 [facility] Three previous spontaneou s abortions (SAB) affecting care of mother, antepartum , first trimester Three previous spontaneou s abortions (SAB) affecting care of mother, antepartum , first trimester Disease Active 08-03 00:00: 00 [facility] History of hypothyroi dism History of hypothyroi dism Disease Active 08-03 00:00: 00 [facility] Sickle cell trait Sickle cell trait Disease Active 03-28 00:00: 00 [facility] Class 3 severe obesity with body mass index (BMI) of 40.0 to 44.9 in adult, unspecifie d obesity type, unspecifie d whether serious comorbidit y present Class 3 severe obesity with body mass index (BMI) of 40.0 to 44.9 in adult, unspecifie d obesity type, unspecifie d whether serious comorbidit y present Disease Resolve d 2019-0 6-18 00:00: 00 2023-12-09 00:00:00 2023-12-09 09:09:42 [facility] care and examinatio n immediatel y after delivery care and examinatio n immediatel y after delivery Disease Resolve d 2020-0 3-06 00:00: 00 2023-12-09 00:00:00 2023-12-09 09:10:24 [facility] 37 weeks gestation of 37 weeks gestation of Disease Resolve d 2020-0 2-13 00:00: 00 2023-12-09 00:00:00 2023-12-09 09:09:36 [facility] Group B streptococ luis manuel infection during Group B streptococ luis manuel infection during Disease Resolve d 2-10 00:00: 00 2023-12-09 00:00:00 2023-12-09 09:10:11 [facility] Multiparit y Multiparit y Disease Resolve d 1-06 00:00: 00 2023-12-09 00:00:00 2023-12-09 09:10:22 [facility] Need for prophylact ic vaccinatio n against rubella alone Need for prophylact ic vaccinatio n against rubella alone Disease Resolve d 2018-02 1-15 00:00: 00 2023-12-09 00:00:00 2023-12-09 09:10:23 [facility] Three previous spontaneou s abortions (SAB) affecting care of mother, antepartum , first trimester Three previous spontaneou s abortions (SAB) affecting care of mother, antepartum , first trimester Disease Resolve d 6-26 00:00: 00 2023-12-09 00:00:00 2023-12-09 09:10:34 [facility] Supervisio n of high risk in third trimester Supervisio n of high risk in third trimester Disease Resolve d 6-26 00:00: 00 2023-12-09 00:00:00 2023-12-09 09:10:32 [facility] Rubella non-immune status, antepartum Rubella non-immune status, antepartum Disease Resolve d 2017-02 0-03 00:00: 00 2023-12-09 00:00:00 2023-12-09 09:10:27 Overview: Formattin g of this note might be different from the original. Address in PP [facility] Morbid obesity Morbid obesity Disease Resolve d 06-26 00:00: 00 2023-12-09 00:00:00 2023-12-09 09:10:20 [facility] Screening examinatio n for STD (sexually transmitte d disease) Screening examinatio n for STD (sexually transmitte d disease) Disease Resolve d 5-19 00:00: 00 2023-12-09 00:00:00 2023-12-09 09:10:28 [facility] Rh negative status during in first trimester Rh negative status during in first trimester Disease Resolve d 10-10 00:00: 00 2023-12-09 00:00:00 2023-12-09 09:10:26 Overview: Formattin g of this note might be different from the original. IAT (+)- Rhogm 10/24/2014 [facility] Pre-eclamp ben Pre-eclamp ben Disease Resolve d 10-08 00:00: 00 2023-12-09 00:00:00 2023-12-09 09:10:25 [facility] Gestationa l hypertensi on Gestationa l hypertensi on Disease Resolve d 2-06 00:00: 00 2019-03-20 00:00:00 2019-03-20 08:07:23 [facility] Spotting affecting in third trimester Spotting affecting in third trimester Disease Resolve d 1-08 00:00: 00 2019-03-20 00:00:00 2019-03-20 08:06:14 [facility] History of gestationa l hypertensi on History of gestationa l hypertensi on Disease Resolve d 6- 00:00: 00 2018-12-23 00:00:00 2018-12-23 12:43:03 [facility] Pelvic cramping in antepartum period Pelvic cramping in antepartum period Disease Resolve d 0 6- 00:00: 00 2018-12-23 00:00:00 2018-12-23 12:42:46 [facility] Cramping affecting , antepartum Cramping affecting , antepartum Disease Resolve d 2017-02 0-02 00:00: 00 2018-12-23 00:00:00 2018-12-23 12:42:45 [facility] Supervisio n of high risk , antepartum Supervisio n of high risk , antepartum Disease Resolve d 10-08 00:00: 00 2018-12-23 00:00:00 2021-08-24 00:37:26 [facility] history of Heart murmur history of Heart murmur Disease Resolve d 10-08 00:00: 00 2018-12-23 00:00:2021-08-24 00:37:26 [facility] Anemia of mother in , condition Anemia of mother in , condition Disease Resolve d 06-02 00:00: 2017-11-09 00:00:00 2017-11-09 14:09:42 [facility] Gestationa l hypertensi on Gestationa l hypertensi on Disease Resolve d 05-09 00:00: 00 2017-11-09 00:00:00 2017-11-09 14:09:39 [facility] 37 weeks gestation of 37 weeks gestation of Disease Resolve d 05-09 00:00: 00 2015-06-03 00:00:00 2015-06-03 13:10:52 [facility] Shortness of breath due to , third trimester Shortness of breath due to , third trimester Disease Resolve d 03-28 00:00: 2015-06-03 00:00:00 2021-08-24 00:39:35 [facility] Indication for care in labor and delivery, antepartum Indication for care in labor and delivery, antepartum Disease Resolve d 03-28 00:00: 00 2015-06-03 00:00:00 2015-06-03 13:10:59 [facility] History of miscarriag e, currently History of miscarriag e, currently Disease Resolve d 10-08 00:00: 2015-06-03 00:00:00 2021-08-24 00:37:26 [facility] Obesity complicati ng , childbirth , or puerperium , antepartum Obesity complicati ng , childbirth , or puerperium , antepartum Disease Resolve d 10-08 00:00: 00 2015-06-03 00:00:00 2021-08-24 00:37:26 [facility] Small for gestationa l age fetus affecting management of mother, third trimester, fetus 1 Small for gestationa l age fetus affecting management of mother, third trimester, fetus 1 Disease Resolve d 3 00:00: 00 2015-05-21 00:00:00 2015-05-21 13:24:02 [facility] LINA (amniotic fluid index) borderline low LINA (amniotic fluid index) borderline low Disease Resolve d 329 00:00: 00 2015-05-21 00:00:00 2015-05-21 13:24:02 [facility] Gestationa l hypertensi on, third trimester Gestationa l hypertensi on, third trimester Disease Resolve d 05-06 00:00: 00 2015-05-21 00:00:00 2015-05-21 13:24:02 [facility] Anemia affecting in third trimester Anemia affecting in third trimester Disease Resolve d 05-06 00:00: 00 2015-05-21 00:00:00 2015-05-21 13:24:02 [facility] Subclinica l hyperthyro idism Subclinica l hyperthyro idism Disease Resolve d 05-05 00:00: 00 2015-05-21 00:00:00 2015-05-21 13:24:02 [facility] 36 weeks gestation of 36 weeks gestation of Disease Resolve d 05-05 00:00: 00 2015-05-21 00:00:00 2015-05-21 13:24:02 [facility] contractio ns contractio ns Disease Resolve d 05-05 00:00: 00 2015-05-21 00:00:00 2015-05-21 13:24:02 [facility] Dyspnea on exertion Dyspnea on exertion Disease Resolve d 03-28 00:00: 00 2015-05-21 00:00:00 2015-05-21 13:24:02 [facility] Right bundle branch block Right bundle branch block Disease Resolve d 2 00:00: 00 2015-05-21 00:00:00 2015-05-21 13:24:02 [facility] Anemia Anemia Disease Resolve d 03-28 00:00: 00 2015-05-21 00:00:00 2015-05-21 13:24:02 [facility] History of heart surgery for ASD History of heart surgery for ASD Disease Resolve d 03-28 00:00: 00 2015-05-21 00:00:00 2015-05-21 13:24:02 [facility] Screening for sickle-rachel l disease or trait Screening for sickle-rachel l disease or trait Disease Resolve d 03-22 00:00: 00 2015-03-28 00:00:00 2015-03-28 19:38:21 [facility] Anemia of mother in , antepartum Anemia of mother in , antepartum Disease Resolve d 03-15 00:00: 00 2015-03-28 00:00:00 2021-08-24 00:39:23 [facility] Positive IAT Positive IAT Disease Resolve d 10-15 00:00: 00 2015-03-28 00:00:00 2021-08-24 00:37:31 [facility] Irregular menstrual cycle Irregular menstrual cycle Disease Resolve d 03-13 00:00: 00 2014-10-08 00:00:00 2014-10-08 16:35:40 [facility] History of miscarriag e History of miscarriag e Disease Resolve d 2 00:00: 00 2014-10-08 00:00:00 2014-10-08 16:35:38 [facility] Morbid obesity Morbid obesity Disease Resolve d 03-13 00:00: 00 2014-10-08 00:00:00 2015-05-06 08:28:02 [facility] Rubella immune status not known Rubella immune status not known Disease Resolve d 2 00:00: 00 2014-10-08 00:00:00 2014-10-08 16:35:34 [facility] General counseling for prescripti on of oral contracept william General counseling for prescripti on of oral contracept william Disease Resolve d 2- 00:00: 00 2014-10-08 00:00:00 2014-10-08 16:35:31 [facility] Allergies, Adverse Reactions, Alerts Allergy Name Allergy Type Status Severity Reaction(s) Onset Date Inactive Date Treating Clinician Comments Source NO KNOWN ALLERGIE S Drug Class Active [facility] Social History Social Habit Start Date Stop Date Quantity Comments Source [facility] Alcohol Comment 2023-12-09 00:00:00 2023-12-09 00:00:00 socially [facility] Exposure to SARS-CoV-2 (event) 2021-11-08 00:00:00 2021-11-18 17:57:00 Not sure [facility] History of Social function 2021-09-08 00:00:00 2021-09-08 00:00:00 [facility] Alcohol intake 2019-07-27 00:00:00 2019-07-27 00:00:00 0 /d [facility] Education 2019-03-16 00:00:00 2019-03-16 00:00:00 21 [facility] Alcoholic beverage intake 2018-11-21 00:00:00 2018-11-21 00:00:00 0 /d [facility] Tobacco use and exposure 2014-03-13 00:00:00 2014-03-13 00:00:00 Smokeless tobacco non-user [facility] Sex assigned at 1995 00:00:00 1995 00:00:00 [facility] Smoking Status Start Date Stop Date Source Never smoked tobacco [facility] Medications Ordered Medication Name Filled Medication Name Start Date Stop Date Current Medication? Ordering Clinician Indication Dosage Frequency Signature (SIG) Comments Components Source hydrochloro thiazide 12.5 mg tablet 2023-02 0 00:00: 00 Yes mg Umesh F Rhys chlorthalid one 25 mg tablet 5-18 00:00: 00 Yes 2mg Umesh F Rhys chlorthalid one 25 mg tablet 4-03 00:00: 00 Yes 1mg Umesh F Rhys chlorthalid one 25 mg tablet 3-07 00:00: 00 Yes 1mg Umesh F Rhys phentermine 37.5 mg tablet 2-22 00:00: 00 Yes mg Umesh F Rhys TAKE 1 TABLET BY MOUTH EVERY DAY IN THE MORNING 8-14 00:00: 00 05-18 00:00 :00 No 125 Umesh Joiner hydrochloro thiazide 12.5 mg tablet 7-17 00:00: 00 Yes mg Umesh Joiner IBUPROFEN 1- 00:00: 00 Yes 800 Umesh Joiner TAKE 3 TABLETS BY MOUTH 2 TIMES A DAY FOR 5 DAYS 1- 00:00: 00 Yes Umesh Joiner MELOXICAM 2021-02 214 00:00: 00 Yes 75 Umesh Joiner TAKE 1 TABLET BY MOUTH TWICE A DAY NEEDED. 2021-02 00:00: 00 Yes Umesh Joiner TAKE 1 TABLET BY MOUTH TWICE A DAY 2021-02 00:00: 00 Yes Umesh Joiner DOXYCYC MONO 2021-02 1- 00:00: 00 Yes 100 Umesh Joiner DICLOFENAC GEL 1% 2021-02 0 00:00: 00 Yes 1 Umesh Joiner IBUPROFEN 2021-02 0 00:00: 00 Yes 800 Umesh Joiner ibuprofen (IBU) tablet 800 mg 2021-02 0-12 00:00: 00 11-18 23:09 :00 No [id number] 800mg [facility] TAKE 1 TABLET BY MOUTH 4 TIMES DAILY FOR 10 DAYS. 2021-02 0 00:00: 00 Yes Umesh Joiner methocarbam oL (ROBAXIN-75 0) 750 mg tablet 2021-02 0-11 00:00: 00 11-29 04:59 :00 No [id number] 750mg Take 1 tablet by mouth 4 (four) times daily for 10 days. [facility] APPLY TO AFFECTED AREA(S) 2 (TWO) TIMES DAILY. -16 00:00: 00 No APPLY TO AFFECTED AREA(S) 2 (TWO) TIMES DAILY. 10-24 00:00: 00 Yes Umesh Joiner hydroCHLORO thiazide 12.5 mg tablet 10-20 00:00: 00 Yes 12.5mg Take 1 tablet by mouth every morning. [facility] clindamycin 1 % gel 10-02 00:00: 00 Yes [id number] Apply to affected area(s) 2 (two) times daily. [facility] doxycycline monohydrate 100 mg capsule 10-02 00:00: 00 Yes [id number] 100mg Take 1 capsule by mouth in the morning and 1 capsule in the evening. Take with meals. [facility] clindamycin 1 % gel 10-02 00:00: 00 Yes [id number] Apply to affected area(s) 2 (two) times daily. [facility] TAKE 1 CAPSULE BY MOUTH IN THE MORNING AND 1 CAPSULE IN THE EVENING. TAKE WITH MEALS. 10-02 00:00: 00 Yes Umesh Joiner TAKE 1 TABLET BY MOUTH EVERY DAY IN THE MORNING 0 09-26 00:00: 00 No 125 TAKE 1 TABLET BY MOUTH EVERY DAY IN THE MORNING 0 09-26 00:00: 00 Yes 125 Umesh Joiner &lt 2021-0 8-15 00:00: 00 No &lt 2021-0 8-15 00:00: 00 Yes Umesh Joiner TAKE 1 TABLET BY MOUTH EVERY DAY IN THE MORNING 0 15 00:00: 00 Yes Umesh Joiner BENZONATATE CAP 100MG 2021-0 8-12 00:00: 00 No BENZONATATE CAP 100MG 2021-0 8-12 00:00: 00 Yes Umesh Joiner &lt 2-0 8-09 00:00: 00 No 500 &lt 2-0 8-09 00:00: 00 Yes 500 Umesh Joiner Immunizations Ordered Immunization Name Filled Immunization Name Date Status Comments Source Influenza Virus Vaccine 2021-02-19 00:00:00 Completed [facility] Rho (d) Immune Globulin 2019-03-25 00:00:00 Completed [facility] Rho (d) Immune Globulin 2019-03-25 00:00:00 Completed [facility] Rho (d) Immune Globulin 2019-03-25 00:00:00 Completed [facility] Rho (d) Immune Globulin 2019-03-25 00:00:00 Completed [facility] Rho (d) Immune Globulin 2019-03-25 00:00:00 Completed [facility] Rho (d) Immune Globulin 2019-03-25 00:00:00 Completed [facility] Rho (d) Immune Globulin 2019-03-25 00:00:00 Completed [facility] Rho (d) Immune Globulin 2019-03-25 00:00:00 Completed [facility] Rho (d) Immune Globulin 2019-03-25 00:00:00 Completed [facility] TDAP 2019-01-30 00:00:00 Completed [facility] Rho (d) Immune Globulin 2019-01-30 00:00:00 Completed [facility] TDAP 2019-01-30 00:00:00 Completed [facility] Rho (d) Immune Globulin 2019-01-30 00:00:00 Completed [facility] TDAP 2019-01-30 00:00:00 Completed [facility] Rho (d) Immune Globulin 2019-01-30 00:00:00 Completed [facility] TDAP 2019-01-30 00:00:00 Completed [facility] Rho (d) Immune Globulin 2019-01-30 00:00:00 Completed [facility] TDAP 2019-01-30 00:00:00 Completed [facility] Rho (d) Immune Globulin 2019-01-30 00:00:00 Completed [facility] TDAP 2019-01-30 00:00:00 Completed [facility] Rho (d) Immune Globulin 2019-01-30 00:00:00 Completed TDAP 2019-01-30 00:00:00 Completed [facility] Rho (d) Immune Globulin 2019-01-30 00:00:00 Completed [facility] TDAP 2019-01-30 00:00:00 Completed [facility] Rho (d) Immune Globulin 2019-01-30 00:00:00 Completed [facility] TDAP 2019-01-30 00:00:00 Completed [facility] Rho (d) Immune Globulin 2019-01-30 00:00:00 Completed [facility] Rho (d) Immune Globulin 2015-05-12 00:00:00 Completed [facility] Rho (d) Immune Globulin 2015-05-12 00:00:00 Completed [facility] Rho (d) Immune Globulin 2015-05-12 00:00:00 Completed [facility] Rho (d) Immune Globulin 2015-05-12 00:00:00 Completed [facility] Rho (d) Immune Globulin 2015-05-12 00:00:00 Completed [facility] Rho (d) Immune Globulin 2015-05-12 00:00:00 Completed [facility] Rho (d) Immune Globulin 2015-05-12 00:00:00 Completed [facility] Rho (d) Immune Globulin 2015-05-12 00:00:00 Completed [facility] Rho (d) Immune Globulin 2015-05-12 00:00:00 Completed [facility] TDAP 2015-03-14 00:00:00 Completed [facility] Rho (d) Immune Globulin 2015-03-14 00:00:00 Completed [facility] TDAP 2015-03-14 00:00:00 Completed [facility] Rho (d) Immune Globulin 2015-03-14 00:00:00 Completed [facility] TDAP 2015-03-14 00:00:00 Completed [facility] Rho (d) Immune Globulin 2015-03-14 00:00:00 Completed [facility] TDAP 2015-03-14 00:00:00 Completed [facility] Rho (d) Immune Globulin 2015-03-14 00:00:00 Completed [facility] TDAP 2015-03-14 00:00:00 Completed [facility] Rho (d) Immune Globulin 2015-03-14 00:00:00 Completed [facility] TDAP 2015-03-14 00:00:00 Completed [facility] Rho (d) Immune Globulin 2015-03-14 00:00:00 Completed TDAP 2015-03-14 00:00:00 Completed [facility] Rho (d) Immune Globulin 2015-03-14 00:00:00 Completed [facility] TDAP 2015-03-14 00:00:00 Completed [facility] Rho (d) Immune Globulin 2015-03-14 00:00:00 Completed [facility] TDAP 2015-03-14 00:00:00 Completed [facility] Rho (d) Immune Globulin 2015-03-14 00:00:00 Completed [facility] Rho (d) Immune Globulin 2014-10-14 00:00:00 Completed [facility] Rho (d) Immune Globulin 2014-10-14 00:00:00 Completed [facility] Rho (d) Immune Globulin 2014-10-14 00:00:00 Completed [facility] Rho (d) Immune Globulin 2014-10-14 00:00:00 Completed [facility] Rho (d) Immune Globulin 2014-10-14 00:00:00 Completed [facility] Rho (d) Immune Globulin 2014-10-14 00:00:00 Completed [facility] Rho (d) Immune Globulin 2014-10-14 00:00:00 Completed [facility] Rho (d) Immune Globulin 2014-10-14 00:00:00 Completed [facility] Rho (d) Immune Globulin 2014-10-14 00:00:00 Completed [facility] TDAP 2012-02-09 00:00:00 Completed [facility] TDAP 2012-02-09 00:00:00 Completed [facility] TDAP 2012-02-09 00:00:00 Completed [facility] TDAP 2012-02-09 00:00:00 Completed [facility] TDAP 2012-02-09 00:00:00 Completed [facility] TDAP 2012-02-09 00:00:00 Completed TDAP 2012-02-09 00:00:00 Completed [facility] TDAP 2012-02-09 00:00:00 Completed [facility] TDAP 2012-02-09 00:00:00 Completed [facility] TDAP Unknown Completed [facility] Rho (d) Immune Globulin Unknown Completed [facility] Rho (d) Immune Globulin Unknown Completed [facility] Vital Signs Vital Name Observation Time Observation Value Comments S ource Systolic blood pressure 2023-12-09 13:40:00 130 mm[Hg] [facility] Diastolic blood pressure 2023-12-09 13:40:00 81 mm[Hg] [facility] Heart rate 2023-12-09 13:40:00 84 [facility] 2023-12-09 13:40:00 36.28 Rachel [facility] Respiratory rate 2023-12-09 13:40:00 18 /min [facility] Body height 2023-12-09 13:40:00 170.2 cm [facility] Body weight 2023-12-09 13:40:00 144.607 kg [facility] BMI 2023-12-09 13:40:00 49.93 kg/m2 [facility] Systolic blood pressure 2021-11-18 23:03:00 150 mm[Hg] [place] [facility] Diastolic blood pressure 2021-11-18 23:03:00 90 mm[Hg] [facility] Heart rate 2021-11-18 23:03:00 88 /min [facility] Body temperature 2021-11-18 23:03:00 36.94 Rachel [facility] Respiratory rate 2021-11-18 23:03:00 16 /min [facility] Body height 2021-11-18 23:03:00 170.2 cm [facility] Body weight 2021-11-18 23:03:00 137.349 kg [facility] BMI 2021-11-18 23:03:00 47.43 kg/m2 [facility] Oxygen saturation in Arterial blood by Pulse oximetry 2021-11-18 23:03:00 99 /min [facility] BP Systolic 2023-12-09 11:49:00 124 mm[Hg] Step hen F Rhys BP Diastolic 2023-12-09 11:49:00 87 mm[Hg] Andrea phen F Rhys Weight Measured 2023-12-09 11:49:00 319.20 pounds Umesh F Rhys Height Measured 2023-12-09 11:49:00 67.50 inches Umesh F Rhys Body Temperature 2023-12-09 11:49:00 98.10 degrees Umesh F Rhys Heart Rate 2023-12-09 11:49:00 85.00 /min Lauren en F Rhys Respiratory Rate 2023-12-09 11:49:00 17.00 /min Umesh F Rhys Height Measured 2023-06-25 17:50:00 67.50 inches Umesh F Rhys Body Temperature 2023-06-25 17:50:00 62.60 degrees Umesh F Rhys Heart Rate 2023-06-25 17:50:00 99.00 /min Lauren en F Rhys Respiratory Rate 2023-06-25 17:50:00 17.00 /min Umesh F Rhys BP Systolic 2023-06-25 17:50:00 135 mm[Hg] Step hen F Rhys BP Diastolic 2023-06-25 17:50:00 84 mm[Hg] Andrea phen F Rhys Weight Measured 2023-06-25 17:50:00 315.00 pounds Umesh F Rhys BP Systolic 2023-04-15 16:20:00 130 mm[Hg] Step hen F Rhys BP Diastolic 2023-04-15 16:20:00 84 mm[Hg] Andrea phen F Rhys Weight Measured 2023-04-15 16:20:00 315.20 pounds Umesh F Rhys Height Measured 2023-04-15 16:20:00 67.50 inches Umesh F Rhys Body Temperature 2023-04-15 16:20:00 98.00 degrees Umesh F Rhys Heart Rate 2023-04-15 16:20:00 87.00 /min Lauren en F Rhys Respiratory Rate 2023-04-15 16:20:00 17.00 /min Umesh F Rhys BP Systolic 2022-08-24 17:31:00 132 mm[Hg] Step hen F Rhys BP Diastolic 2022-08-24 17:31:00 87 mm[Hg] Andrea phen F Rhys Weight Measured 2022-08-24 17:31:00 317.60 pounds Umesh F Rhys Height Measured 2022-08-24 17:31:00 67.50 inches Umesh F Rhys Body Temperature 2022-08-24 17:31:00 98.20 degrees Umesh F Rhys Heart Rate 2022-08-24 17:31:00 89.00 /min Lauren en F Rhys Respiratory Rate 2022-08-24 17:31:00 Umesh F Rhys BP Systolic 2021-11-24 08:30:00 135 mm[Hg] Step hen F Rhys BP Diastolic 2021-11-24 08:30:00 85 mm[Hg] Andrea phen F Rhys Weight Measured 2021-11-24 08:30:00 301.20 pounds Umesh F Rhys Height Measured 2021-11-24 08:30:00 67.50 inches Umesh F Rhys Body Temperature 2021-11-24 08:30:00 98.30 degrees Umesh F Rhys Heart Rate 2021-11-24 08:30:00 77.00 /min Lauren en F Rhys Respiratory Rate 2021-11-24 08:30:00 18.00 /min Umesh F Rhys BP Systolic 2021-09-22 17:10:00 127 mm[Hg] Step hen F Rhys BP Diastolic 2021-09-22 17:10:00 85 mm[Hg] Andrea phen F Rhys Weight Measured 2021-09-22 17:10:00 302.60 pounds Umesh F Rhys Height Measured 2021-09-22 17:10:00 67.50 inches Umesh F Rhys Body Temperature 2021-09-22 17:10:00 98.40 degrees Umesh F Rhys Heart Rate 2021-09-22 17:10:00 98.00 /min Lauren en F Rhys Respiratory Rate 2021-09-22 17:10:00 18.00 /min Umesh Joiner Procedures Procedure Date / Time Performed Performing Clinicia n Source XR SPINE THORACIC 3 VW 2021-11-19 00:00:00 Anthony Briones [facility] XR LUMBAR SPINE 3 VW 2021-11-18 23:50:00 Kathy Briones [facility] XR KNEE 3 VW LEFT 2021-11-18 23:40:00 [facility] LEFT 2021-11-18 23:24:00 Kathy Briones [facility] XR WRIST 3+ VW LEFT 2021-11-18 23:15:00 Anthony Briones [facility] IMMTRAC2 CONSENT 2018-12-19 06:01:00 Doctor Hubert signed, [place] [facility] Plan of Care Planned Activity Planned Date Details Comments Source Goal Plan of Care Note [code = 39132-6] Goal Plan of Care Note [code = 72378-4] Goal Plan of Care Note [code = 67279-8] Goal Plan of Care Note [code = 43566-6] Goal Plan of Care Note [code = 28010-3] Goal Plan of Care Note [code = 27612-7] Goal Plan of Care Note [code = 36510-4] Goal Plan of Care Note [code = 85815-1] Goal Plan of Care Note [code = 82109-2] Goal Plan of Care Note [code = 59279-0] Goal Plan of Care Note [code = 93109-2] Goal Plan of Care Note [code = 55078-6] Encounters Start Date/Time End Date/Time Encounter Type Admission Type Attending Clinicians Care Facility Care Department Encounter ID Source 2018-12-12 00:00:00 2024-03-25 03:06:50 Orders Only Teresa Bunn Sandra E [facility] 1.2.840.114 350.1.13.10 4.2.7.2.686 [id number] [facility] 2023-12-09 11:40:31 2023-12-09 11:40:31 Outpatient SFA ANNA [id number] Umesh Priscila Rhys 2023-12-09 08:45:00 2023-12-09 09:29:15 Outpatient R JANICE NORMAN [facility] [id number] [facility] 2023-12-09 08:45:00 2023-12-09 09:29:15 Office Visit Janice Norman [facility] 1.2.840.114 350.1.13.10 4.2.7.2.686 [id number] [facility] 2023-12-09 08:45:00 2023-12-09 08:45:00 Outpatient R JANICE NORMAN [facility] [id number] [facility] 2023-12-09 00:00:00 2023-12-09 00:00:00 Outpatient Visit ANNA [id number] Umesh Joiner 2023-06-28 15:11:17 2023-06-28 15:11:17 Outpatient SFA ANNA [id number] Umesh Priscila Rhys 2023-06-25 17:39:32 2023-06-25 17:39:[address] [facility] [id number] Umesh Joiner 2023-06-25 00:00:00 2023-06-25 00:00:[address] [facility] [id number] Umesh Joiner 2023-06-15 15:00:00 2023-06-15 15:00:00 Outpatient MARTA BOWLING [facility] [id number] [facility] 2023-04-15 16:09:17 2023-04-15 16:09:[address] [facility] [id number] Umesh Joiner 2022-08-24 17:27:56 2022-08-24 17:27:56 Outpatient [facility] [place] [id number] Umesh Joiner 2021-12-17 11:00:00 2021-12-17 11:00:00 Outpatient IDA SILVA [facility] [id number] [facility] 2021-11-24 08:15:56 2021-11-24 08:15:56 Outpatient [facility] [place] [id number] Umesh Joiner 2021-11-24 00:00:00 2021-11-24 00:00:00 Outpatient Visit [id number] 2021-11-19 00:00:00 2021-11-19 00:00:00 Telephone Anselmo [facility] 1.2.840.114 350.1.13.10 4.2.7.2.686 [id number] [facility] 2021-11-18 18:09:31 2021-11-18 23:59:00 Hospital Encounter Anselmo [facility] 1.2.840.114 350.1.13.10 4.2.7.2.686 [id number] [facility] 2021-11-18 18:09:30 2021-11-18 23:59:00 [facility] 1.2840.114 350.1.13.10 4.2.7.2.686 [id number] [facility] 2021-11-18 18:09:30 2021-11-18 23:59:00 Hospital Encounter Ebmarianne, Anthony [facility] 1.2840.114 350.1.13.10 4.2.7.2.686 [id number] [facility] 2021-11-18 18:09:29 2021-11-18 23:59:00 Hospital Encounter Anthony Briones [facility] 1.20.114 350.1.13.10 4.2.7.2.686 [id number] [facility] 2021-11-18 18:09:29 2021-11-18 23:59:00 Hospital Encounter Anthony Briones [facility] 1.2840.114 350.1.13.10 4.2.7.2.686 [id number] [facility] 2021-11-18 18:09:29 2021-11-18 23:59:00 Outpatient R ANTHONY BRIONES [facility] [id number] [facility] 2021-11-18 18:00:00 2021-11-18 18:54:25 Urgent Care Ebmarianne, Anthony Unknown, Attending [facility] 1.2840.114 350.1.13.10 4.2.7.2.686 [id number] [facility] 2021-10-02 15:30:00 2021-10-02 15:45:00 [facility]114 350.1.13.10 4.2.7.2.686 [id number] [facility] 2021-10-02 15:30:00 2021-10-02 15:30:00 Outpatient R FABY STALLINGS [facility] [id number] [facility] 2021-09-22 00:00:00 2021-09-22 00:00:00 Outpatient Visit [id number] 2021-09-08 09:30:00 2021-09-08 11:12:16 Office Visit Yaritza Stiles [facility] 1..114 350.1.13.10 4.2.7.2.686 [id number] [facility] 2021-09-08 09:30:00 2021-09-08 11:12:16 Outpatient YARITZA CAMERON [facility] [id number] [facility] 2021-09-08 09:30:00 2021-09-08 11:12:16 Outpatient YARITZA CAMERON [facility] [id number] [facility] 2021-09-08 09:30:00 2021-09-08 09:30:00 Outpatient YARITZA CAMERON [facility] [id number] [facility] 2021-09-08 00:00:00 2021-09-08 00:00:00 Orders Only Doctor Unassigned, [place] [facility] 1.840.114 350.1.13.10 4.2.7.2.686 [id number] [facility] 2021-08-28 08:45:00 2021-08-28 08:45:00 Outpatient YARITZA CAMERON [facility] [id number] [facility] 2021 00:00:00 2021 00:00:00 Telephone Prema Alfredo [facility] 1.840.114 350.1.13.10 4.2.7.2.686 [id number] [facility] 2021-01-07 14:26:41 2021-01-07 15:03:00 Urgent Care Garret Owen Unknown, Attending [facility] 1.840.114 350.1.13.10 4.2.7.2.686 [id number] [facility] 2021-01-07 14:30:00 2021-01-07 14:52:05 Outpatient GARRET BROOKS [facility] [id number] [facility] 2021-01-07 14:17:25 2021-01-07 14:32:25 Laboratory Only Only, Ang Db Test Unknown, Attending [facility] 1.840.114 350.1.13.10 4.2.7.2.686 [id number] [facility] 2020-08-28 08:17:40 2020-08-28 09:18:27 Office Visit Yaritza Stiles [facility] 1.84.114 350.1.13.10 4.2.7.2.686 [id number] [facility] 2020-08-28 08:15:00 2020-08-28 08:15:00 Outpatient YARITZA CAMERON [facility] [id number] [facility] 2020-07-29 09:45:00 2020-07-29 09:45:00 Outpatient R YARITZA STILES [facility] [id number] [facility] 2020-04-30 00:00:00 2020-04-30 00:00:00 Patient Outreach Casey Robbangelika Marie [facility] 1.84.114 350.1.13.10 4.2.7.2.686 [id number] [facility] 2020-01-29 00:00:00 2020-01-29 00:00:00 Patient Secure Msg Doctor Unassigned, [place] [facility]IN M[facility]OY 1.840.114 350.1.13.10 4.2.7.2.686 [id number] [facility] 2019-07-27 08:41:44 2019-07-27 09:33:41 Office Visit Yaritza Stiles [facility] 1.840.114 350.1.13.10 4.2.7.2.686 [id number] [facility] 2019-07-27 08:30:00 2019-07-27 08:30:00 Outpatient R YARITZA STILES [facility] [id number] [facility] 2019-05-08 10:30:00 2019-05-08 10:30:00 Outpatient R YARITZA STILES [facility] [id number] [facility] 2019-04-14 10:48:54 2019-04-14 12:49:58 Routine Visit Yaritza Stiles [facility] 1.840.114 350.1.13.10 4.2.7.2.686 [id number] [facility] 2019-04-14 10:45:00 2019-04-14 10:45:00 Outpatient R YARIZTA STILES [facility] [id number] [facility] 2019-03-31 11:31:31 2019-03-31 12:03:46 Nurse Visit Visit, Steven-Rmchp Nurse Janice Norman [facility] 1.2.840.114 350.1.13.10 4.2.7.2.686 [id number] [facility] 2019-03-16 19:23:00 2019-03-26 15:35:00 Hospital Encounter Keyur Haley [facility] 1.2.840.114 350.1.13.10 4.2.7.2.686 [id number] [facility] 2019-03-16 13:53:42 2019-03-20 08:51:45 Routine Visit Risk, Steven-Rmchp-N p/High Yaritza Stiles Maria L [facility] 1.2.840.114 350.1.13.10 4.2.7.2.686 [id number] [facility] 2019-03-08 00:00:00 2019-03-08 00:00:00 Abstract Yaritza Stiles [facility] 1.2.840.114 350.1.13.10 4.2.7.2.686 [id number] [facility] 2019-03-06 00:00:00 2019-03-06 00:00:00 Case Management Yaritza Stiles [facility] 1.2.840.114 350.1.13.10 4.2.7.2.686 [id number] [facility] 2019-02-28 13:33:03 2019-02-28 14:12:00 Routine Visit Yaritza Stiles [facility] 1.2.840.114 350.1.13.10 4.2.7.2.686 [id number] [facility] 2019-02-13 00:00:00 2019-02-13 00:00:00 Orders Only Doctor Unassigned, [place] [facility] 1.2.840.114 350.1.13.10 4.2.7.2.686 [id number] [facility] 2018-10-16 00:00:00 2018-10-16 00:00:00 Nurse Triage Luh Castro [facility] 1.2.840.114 350.1.13.10 4.2.7.2.686 [id number] [facility] 2018-10-12 16:04:22 2018-10-12 16:56:50 Routine Visit Janice Norman [facility] 1.2.840.114 350.1.13.10 4.2.7.2.686 [id number] [facility] 2018-09-21 00:00:00 2018-09-21 00:00:00 Telephone Nessa Fortune [facility] 1.2.840.114 350.1.13.10 4.2.7.2.686 [id number] [facility] 2018-09-05 09:52:24 2018-09-08 09:14:29 Office Visit Faculty, Ursula Roldan [facility] 1.2.840.114 350.1.13.10 4.2.7.2.686 [id number] [facility] 2018-09-08 00:00:00 2018-09-08 00:00:00 Telephone Ursula Toth [facility] 1.2.840.114 350.1.13.10 4.2.7.2.686 [id number] [facility] Results Test Description Test Time Test Comments Results Result Co mments Source COMPREHENSIVE METABOLIC [id number] 05:55:35* Test Item Value Reference Range Interpretation Comme nts GLUCOSE (test code = 2217) TEST NOT PERFORMED MG/DL 70-99 Specimen received in an unspun tube not compliant with tube senior business process analyst requirements. Results cannot be reported. BUN (test code = 2207) TEST NOT PERFORMED MG/DL 6-20 CREATININE (test code = 2213) TEST NOT PERFORMED MG/DL 0.60-1.30 eGFR (2020 CKD-EPI) (test code = 20783) TEST NOT PERFORMED ML/MIN/1.73 >60 CALC BUN/CREAT (test code = 2234) TEST NOT PERFORMED RATIO 6-28 SODIUM (test code = 2230) TEST NOT PERFORMED MEQ/L 133-146 POTASSIUM (test code = 2227) TEST NOT PERFORMED MEQ/L 3.5-5.4 CHLORIDE (test code = 5) TEST NOT PERFORMED MEQ/L 95-107 CARBON DIOXIDE (test code = 6) TEST NOT PERFORMED MEQ/L 19-31 CALCIUM (test code = 2208) TEST NOT PERFORMED MG/DL 8.5-10.5 PROTEIN, TOTAL (test code = 2228) TEST NOT PERFORMED G/DL 6.1-8.3 ALBUMIN (test code = 1) TEST NOT PERFORMED G/DL 3.5-5.2 CALC GLOBULIN (test code = 2240) TEST NOT PERFORMED G/DL 1.9-3.7 CALC A/G RATIO (test code = 223) TEST NOT PERFORMED RATIO 1.0-2.6 BILIRUBIN, TOTAL (test code = 7) TEST NOT PERFORMED MG/DL <=1.2 ALKALINE PHOSPHATASE (test code = 2204) TEST NOT PERFORMED U/L 40-112 AST (test code = 2218) TEST NOT PERFORMED U/L 9-40 ALT (test code = 2219) TEST NOT PERFORMED U/L 5-40 LIPID [id number] 05:55:35* Test Item Value Reference Range Interpretation Comme nts CHOLESTEROL (test code = 2210) TEST NOT PERFORMED MG/DL <200 Specimen received in an unspun tube not compliant with tube senior business process analyst requirements. Results cannot be reported. TRIGLYCERIDES (test code = 2232) TEST NOT PERFORMED MG/DL <150 HDL CHOLESTEROL (test code = 2220) TEST NOT PERFORMED MG/DL >39 CALC LDL CHOL (test code = 2237) TEST NOT PERFORMED MG/DL <100 Specimen received in an unspun tube not compliant with tube senior business process analyst requirements. Results cannot be reported. NOTE: CALCULATED LDL IS BASED ON MAEGAN-ROD METHOD WHICHINCLUDES ADJUSTABLE TRIGLYCERIDE:VLDL CHOLESTEROL RATIO.THIS FACTOR VARIES BY MEASURED TRIGLYCERIDE AND NON-HDLCHOLESTEROL CONCENTRATIONS WITH INCREASED CALCULATED LDL SEENIN HIGHER TRIGLYCERIDE OR LOWER NON-HDL SPECIMENS. FOR MOREINFORMATION, SEE CLIENT ANNOUNCEMENT AT [email or web address] RISK RATIO LDL/HDL (test code = 2238) TEST NOT PERFORMED RATIO <3.22 HEMOGLOBIN [id number] 02:19:40* Test Item Value Reference Range Interpretation Comme [facility] HEMOGLOBIN A1c (test code = 65885) 5.7 % 4.2-5.6 H [employer] GUIDELINES FOR HGB A1C: PREDIABETES/INCREASED RISK . . . . . . . 5.7-6.4% DIAGNOSIS OF DIABETES . . . . . . . . . >=6.5% WITH CONFIRMATION OR APPROPRIATE SYMPTOMS NOTE: ASSAY MAY BE AFFECTED BY HEMOGLOBINOPATHIES (SICKLE CELL ANEMIA, S-C DISEASE, OTHERS) OR ARTIFICIALLY LOWERED BY DECREASED RED CELL SURVIVAL (HEMOLYTIC ANEMIAS, BLOOD LOSS, ETC.). CONSIDER ALTERNATE TESTING OR LABORATORY CONSULTATION. COMPREHENSIVE METABOLIC [id number] 00:00:00* Test Item Value Reference Range Interpretation Comme nts GLUCOSE (test code = 2217) TEST NOT PERFORMED MG/DL BUN (test code = 2208) TEST NOT PERFORME D MG/DL CREATININE (test code = 2214) TEST NOT PERFORMED MG/DL eGFR (2020 CKD-EPI) (test code = 54938) TEST NOT PERFORMED ML/MIN/1.73 CALC BUN/CREAT (test code = 2235) TEST NOT PERFORMED RATIO SODIUM (test code = 2231) TEST NOT PERFORMED MEQ/L POTASSIUM (test code = 2228) TEST NOT PERFORMED MEQ/L CHLORIDE (test code = 2215) TEST NOT PERFORMED MEQ/L CARBON DIOXIDE (test code = 2206) TEST NOT PERFORMED MEQ/L CALCIUM (test code = 2209) TEST NOT PERFORMED MG/DL PROTEIN, TOTAL (test code = 2229) TEST NOT PERFORMED G/DL ALBUMIN (test code = 2201) TEST NOT PERFORMED G/DL CALC GLOBULIN (test code = 2240) TEST NOT PERFORMED G/DL CALC A/G RATIO (test code = 223) TEST NOT PERFORMED RATIO BILIRUBIN, TOTAL (test code = 7) TEST NOT PERFORMED MG/DL ALKALINE PHOSPHATASE (test code = 220) TEST NOT PERFORMED U/L AST (test code = 2218) TEST NOT PERFORME D U/L ALT (test code = 2219) TEST NOT PERFORME D U/L Umesh JoinerLIPID [id number] 00:00:00* Test Item Value Reference Range Interpretation Comme nts CHOLESTEROL (test code = 2210) TEST NOT PERFORMED MG/DL TRIGLYCERIDES (test code = 2232) TEST NOT PERFORMED MG/DL HDL CHOLESTEROL (test code = 2219) TEST NOT PERFORMED MG/DL CALC LDL CHOL (test code = 2236) TEST NOT PERFORMED MG/DL RISK RATIO LDL/HDL (test code = 2237) TEST NOT PERFORMED RATIO Umesh JoinerHEMOGLOBIN [id number] 00:00:00* Test Item Value Reference Range Interpretation Comme maico HEMOGLOBIN A1c (test code = 01849) 5.7 % Umesh JoinerHIV 1/2 4TH GEN, RFLX [id number] 00:00:00* Test Item Value Reference Range Interpretation Comme maico HIV 1/2 4TH GEN, RFLX CONF (test code = 3514) TEST NOT PERFORMED Umesh JoinerCOMPREHENSIVE METABOLIC [id number] 04:21:31* Test Item Value Reference Range Interpretation Comme maico GLUCOSE (test code = 2216) 83 MG/DL 70-99 BUN (test code = 2207) 13 MG/DL 6-20 CREATININE (test code = 2213) 0.90 MG/DL 0.60-1.30 eGFR (2020 CKD-EPI) (test co de = 92464) 88 ML/MIN/1.73 >60 CALC BUN/CREAT (test code = 2234) 14 RATIO 6-28 SODIUM (test code = 2230) 136 MEQ/L 133-146 POTASSIUM (test code = 2227) 4.5 MEQ/L 3.5-5.4 CHLORIDE (test code = 2214) 96 MEQ/L 95-107 CARBON DIOXIDE (test code = 6) 25 MEQ/L 19-31 CALCIUM (test code = 2208) 10.1 MG/DL 8.5-10.5 PROTEIN, TOTAL (test code = 2229) 8.7 G/DL 6.1-8.3 H ALBUMIN (test code = 220) 4.4 G/DL 3.5-5.2 CALC GLOBULIN (test code = 2240) 4.3 G/DL 1.9-3.7 H CALC A/G RATIO (test code = 2234) 1.0 RATIO 1.0-2.6 BILIRUBIN, TOTAL (test code = 2206) 0.3 MG/DL <=1.2 ALKALINE PHOSPHATASE (test code = 220) 86 U/L 40-112 AST (test code = 221) 13 U/L 9-40 ALT (test code = 221) 11 U/L 5-40 LIPID [id number] 04:21:31* Test Item Value Reference Range Interpretation Comme nts CHOLESTEROL (test code = 0) 176 MG/DL <200 TRIGLYCERIDES (test code = 2232) 162 MG/DL <150 H HDL CHOLESTEROL (test code = 2219) 39 MG/DL >39 L CALC LDL CHOL (test code = 2236) 109 MG/DL <100 H NOTE: CALCULATED LDL IS BASED ON MAEGAN-ROD METHOD WHICHINCLUDES ADJUSTABLE TRIGLYCERIDE:VLDL CHOLESTEROL RATIO.THIS FACTOR VARIES BY MEASURED TRIGLYCERIDE AND NON-HDLCHOLESTEROL CONCENTRATIONS WITH INCREASED CALCULATED LDL SEENIN HIGHER TRIGLYCERIDE OR LOWER NON-HDL SPECIMENS. FOR MOREINFORMATION, SEE CLIENT ANNOUNCEMENT AT [email or web address] [email or web address] LDL/HDL (test code = 223) 2.79 RATIO <3.22 CBC W/AUTO DIFF WITH [id number] 04:00:46* Test Item Value Reference Range Interpretation Comme nts WBC (test code = 1001) 7.7 K/UL 3.5-11.0 RBC (test code = 1002) 5.24 M/UL 3.80-5.40 HEMOGLOBIN (test code = 1003) 12.5 G/DL 11.5-15.5 HEMATOCRIT (test code = 1004) 39.7 % 34.0-45.0 MCV (test code = 1005) 75.8 fL 80.0-99.0 L MCH (test code = 1006) 23.9 PG 25.0-33.0 L MCHC (test code = 1007) 31.5 G/DL 31.0-36.0 RDW (test code = 1038) 17.4 % 11.5-15.0 H NEUTROPHILS (test code = 1008) 56.6 % LYMPHOCYTES (test code = 1010) 31.6 % MONOCYTES (test code = 1011) 9.7 % EOSINOPHILS (test code = 1012) 1.6 % BASOPHILS (test code = 1013) 0.4 % IMMATURE GRANULOCYTES (test code = 1036) 0.1 % NUCLEATED RBCS (test code = 1065) 0.0 /100 WBC'S See_Comment [Automated messa ge] The system which generated this result transmitted reference range: 0.0. The reference range was not used to interpret this result as normal/abnormal. PLATELET COUNT (test code = 1015) 473 K/UL 130-400 H ABSOLUTE NEUTROPHILS (test code = 1066) 4.36 K/UL 1.50-7.50 ABSOLUTE LYMPHOCYTES (test code = 1067) 2.43 K/UL 1.00-4.00 ABSOLUTE MONOCYTES (test code = 1068) 0.75 K/UL 0.20-1.00 ABSOLUTE EOSINOPHILS (test code = 1040) 0.12 K/UL 0.00-0.50 ABSOLUTE BASOPHILS (test code = 1069) 0.03 K/UL 0.00-0.20 ABS IMMATURE GRANULOCYTES (test code = 1020) 0.01 K/UL 0.00-0.10 ABS NUCLEATED RBCS (test code = 62107) 0.00 K/UL 0.00-0.11 HEMOGLOBIN [id number] 03:11:07* Test Item Value Reference Range Interpretation Comme nts HEMOGLOBIN A1c (test code = 20119) 5.8 % 4.2-5.6 H [employer] GUIDELINES FOR HGB A1C: PREDIABETES/INCREASED RISK . . . . . . . 5.7-6.4% DIAGNOSIS OF DIABETES . . . . . . . . . >=6.5% WITH CONFIRMATION OR APPROPRIATE SYMPTOMS NOTE: ASSAY MAY BE AFFECTED BY HEMOGLOBINOPATHIES (SICKLE CELL ANEMIA, S-C DISEASE, OTHERS) OR ARTIFICIALLY LOWERED BY DECREASED RED CELL SURVIVAL (HEMOLYTIC ANEMIAS, BLOOD LOSS, ETC.). CONSIDER ALTERNATE TESTING OR LABORATORY CONSULTATION. UNLESS OTHERWISE INDICATED, ALL TESTING PERFORMED AT [facility] [address] [place] [id number] SUPERVISOR DIALS: LANDY STANLEY M.D. CLIA NUMBER [id number] [facility] [place]. [id number] CBC W/AUTO [id number] 00:00:00* Test Item Value Reference Range Interpretation Comme nts WBC (test code = 1001) 7.7 K/UL RBC (test code = 1002) 5.24 M/UL HEMOGLOBIN (test code = 1003) 12.5 G/DL HEMATOCRIT (test code = 1004) 39.7 % MCV (test code = 1005) 75.8 fL MCH (test code = 1006) 23.9 PG MCHC (test code = 1007) 31.5 G/DL RDW (test code = 1038) 17.4 % NEUTROPHILS (test code = 1008) 56.6 % LYMPHOCYTES (test code = 1010) 31.6 % MONOCYTES (test code = 1011) 9.7 % EOSINOPHILS (test code = 1012) 1.6 % BASOPHILS (test code = 1013) 0.4 % IMMATURE GRANULOCYTES (test code = 1036) 0.1 % NUCLEATED RBCS (test code = 1065) 0.0 /100WBC'S PLATELET COUNT (test code = 1015) 473 K/UL ABSOLUTE NEUTROPHILS (test c ode = 1066) 4.36 K/UL ABSOLUTE LYMPHOCYTES (test c ode = 1067) 2.43 K/UL ABSOLUTE MONOCYTES (test cod e = 1068) 0.75 K/UL ABSOLUTE EOSINOPHILS (test c ode = 1040) 0.12 K/UL ABSOLUTE BASOPHILS (test cod e = 1069) 0.03 K/UL ABS IMMATURE GRANULOCYTES (t est code = 1020) 0.01 K/UL ABS NUCLEATED RBCS (test cod e = 90043) 0.00 K/UL Umesh JoinerCOMPREHENSIVE METABOLIC [id number] 00:00:00* Test Item Value Reference Range Interpretation Comme nts GLUCOSE (test code = 2217) 83 MG/DL BUN (test code = 2208) 13 MG/DL CREATININE (test code = 2214) 0.90 MG/DL eGFR (2020 CKD-EPI) (test co de = 07488) 88 ML/MIN/1.73 CALC BUN/CREAT (test code = 2235) 14 RATIO SODIUM (test code = 223) 136 MEQ/L POTASSIUM (test code = 2228) 4.5 MEQ/L CHLORIDE (test code = 2215) 96 MEQ/L CARBON DIOXIDE (test code = 2206) 25 MEQ/L CALCIUM (test code = 2209) 10.1 MG/DL PROTEIN, TOTAL (test code = 2229) 8.7 G/DL ALBUMIN (test code = 2201) 4.4 G/DL CALC GLOBULIN (test code = 2240) 4.3 G/DL CALC A/G RATIO (test code = 2234) 1.0 RATIO BILIRUBIN, TOTAL (test code = 2207) 0.3 MG/DL ALKALINE PHOSPHATASE (test code = 220) 86 U/L AST (test code = 221) 13 U/L ALT (test code = 2219) 11 U/L Umesh JoinerLIPID [id number] 00:00:00* Test Item Value Reference Range Interpretation Comme nts CHOLESTEROL (test code = 2210) 176 MG/DL TRIGLYCERIDES (test code = 2232) 162 MG/DL HDL CHOLESTEROL (test code = 2220) 39 MG/DL CALC LDL CHOL (test code = 2237) 109 MG/DL RISK RATIO LDL/HDL (test cod e = 2238) 2.79 RATIO Umesh JoinerHEMOGLOBIN [id number] 00:00:00* Test Item Value Reference Range Interpretation Comme maico HEMOGLOBIN A1c (test code = 16914) 5.8 % Umesh JoinerCOMPREHENSIVE METABOLIC [id number] 04:39:15* Test Item Value Reference Range Interpretation Comme nts GLUCOSE (test code = 2217) 95 MG/DL 70-99 BUN (test code = 8) 9 MG/DL 6-20 CREATININE (test code = 2214) 0.80 MG/DL 0.60-1.30 eGFR (2020 CKD-EPI) (test code = 97669) 102 ML/MIN/1.73 >60 CALC BUN/CREAT (test code = 2235) 11 RATIO 6-28 SODIUM (test code = 223) 140 MEQ/L 133-146 POTASSIUM (test code = 2228) 4.1 MEQ/L 3.5-5.4 CHLORIDE (test code = 2215) 101 MEQ/L 95-107 CARBON DIOXIDE (test code = 2206) 26 MEQ/L 19-31 CALCIUM (test code = 2209) 9.5 MG/DL 8.5-10.5 PROTEIN, TOTAL (test code = 2229) 8.2 G/DL 6.1-8.3 ALBUMIN (test code = 2201) 4.2 G/DL 3.5-5.2 CALC GLOBULIN (test code = 2240) 4.0 G/DL 1.9-3.7 H CALC A/G RATIO (test code = 2234) 1.1 RATIO 1.0-2.6 BILIRUBIN, TOTAL (test code = 2207) 0.2 MG/DL <=1.2 ALKALINE PHOSPHATASE (test code = 2204) 85 U/L 40-112 AST (test code = 2218) 10 U/L 9-40 ALT (test code = 2219) 9 U/L 5-40 UNLESS OTHERWISE INDICATED, ALL TESTING PERFORMED AT [facility] [address] [place] [address] SUPERVISOR DIALS: LANDY STANLEY M.D. [place] NUMBER [id number] [facility] [place]. [id number] COMPREHENSIVE METABOLIC [id number] 00:00:00* Test Item Value Reference Range Interpretation Comme nts GLUCOSE (test code = 2217) 95 MG/DL BUN (test code = 2208) 9 MG/DL CREATININE (test code = 2214) 0.80 MG/DL eGFR (2020 CKD-EPI) (test code = 32619) 102 ML/MIN/1.73 CALC BUN/CREAT (test code = 2235) 11 RATIO SODIUM (test code = 2231) 140 MEQ/L POTASSIUM (test code = 2228) 4.1 MEQ/L CHLORIDE (test code = 2215) 101 MEQ/L CARBON DIOXIDE (test code = 2206) 26 MEQ/L CALCIUM (test code = 2209) 9.5 MG/DL PROTEIN, TOTAL (test code = 2229) 8.2 G/DL ALBUMIN (test code = 2201) 4.2 G/DL CALC GLOBULIN (test code = 2240) 4.0 G/DL CALC A/G RATIO (test code = 2234) 1.1 RATIO BILIRUBIN, TOTAL (test code = 2207) 0.2 MG/DL ALKALINE PHOSPHATASE (test code = 2204) 85 U/L AST (test code = 2218) 10 U/L ALT (test code = 2219) 9 U/L Umesh JoinerCOMPREHENSIVE METABOLIC [id number] 00:00:00* Test Item Value Reference Range Interpretation Comme nts GLUCOSE (test code = 2217) 95 MG/DL BUN (test code = 2208) 9 MG/DL CREATININE (test code = 2214) 0.80 MG/DL eGFR (2020 CKD-EPI) (test code = 07253) 102 ML/MIN/1.73 CALC BUN/CREAT (test code = 2235) 11 RATIO SODIUM (test code = 2231) 140 MEQ/L POTASSIUM (test code = 2228) 4.1 MEQ/L CHLORIDE (test code = 2215) 101 MEQ/L CARBON DIOXIDE (test code = 2206) 26 MEQ/L CALCIUM (test code = 2209) 9.5 MG/DL PROTEIN, TOTAL (test code = 2229) 8.2 G/DL ALBUMIN (test code = 2201) 4.2 G/DL CALC GLOBULIN (test code = 2240) 4.0 G/DL CALC A/G RATIO (test code = 2234) 1.1 RATIO BILIRUBIN, TOTAL (test code = 2207) 0.2 MG/DL ALKALINE PHOSPHATASE (test code = 2204) 85 U/L AST (test code = 2218) 10 U/L ALT (test code = 2219) 9 U/L Umesh JoinerLEE'S SUMMIT HOSPITALPREHENSIVE METABOLIC [id number] 05:41:42* Test Item Value Reference Range Interpretation Comme nts GLUCOSE (test code = 2217) 93 MG/DL 70-99 BUN (test code = 2208) 9 MG/DL 6-20 CREATININE (test code = 2214) 0.83 MG/DL 0.60-1.30 eGFR (2020 CKD-EPI) (test code = 57846) 98 ML/MIN/1.73 >60 CALC BUN/CREAT (test code = 2235) 11 RATIO 6-28 SODIUM (test code = 2231) 137 MEQ/L 133-146 POTASSIUM (test code = 2228) 4.4 MEQ/L 3.5-5.4 CHLORIDE (test code = 2215) 99 MEQ/L 95-107 CARBON DIOXIDE (test code = 2206) 26 MEQ/L 19-31 CALCIUM (test code = 2209) 9.9 MG/DL 8.5-10.5 PROTEIN, TOTAL (test code = 2229) 8.7 G/DL 6.1-8.3 H ALBUMIN (test code = 2201) 4.5 G/DL 3.5-5.2 CALC GLOBULIN (test code = 2240) 4.2 G/DL 1.9-3.7 H CALC A/G RATIO (test code = 2234) 1.1 RATIO 1.0-2.6 BILIRUBIN, TOTAL (test code = 2207) 0.3 MG/DL See_Comment [Automated me ssage] The system which generated this result transmitted reference range: <=1.2. The reference range was not used to interpret this result as normal/abnormal. ALKALINE PHOSPHATASE (test code = 2204) 87 U/L 40-112 AST (test code = 2218) 11 U/L 9-40 ALT (test code = 2219) 6 U/L 5-40 LIPID [id number] 05:41:42* Test Item Value Reference Range Interpretation Comme nts CHOLESTEROL (test code = 2210) 152 MG/DL <200 TRIGLYCERIDES (test code = 2232) 133 MG/DL <150 HDL CHOLESTEROL (test code = 2220) 38 MG/DL >39 L CALC LDL CHOL (test code = 7) 91 MG/DL <100 NOTE: CALCULATED LDL IS BASED ON MAEGAN-ROD METHOD WHICHINCLUDES ADJUSTABLE TRIGLYCERIDE:VLDL CHOLESTEROL RATIO.THIS FACTOR VARIES BY MEASURED TRIGLYCERIDE AND NON-HDLCHOLESTEROL CONCENTRATIONS WITH INCREASED CALCULATED LDL SEENIN HIGHER TRIGLYCERIDE OR LOWER NON-HDL SPECIMENS. FOR MOREINFORMATION, SEE CLIENT ANNOUNCEMENT AT [email or web address] RISK RATIO LDL/HDL (test code = 2238) 2.39 RATIO <3.22 UNLESS OTHERW ISE INDICATED, [facility] TESTING PERFORMED [facility] [address] [place] [id number] SUPERVISOR DIALS: KENNY OLIVEIRA M.D. CLIA NUMBER [id number] [facility] [place]. [id number] LIPID [id number] 00:00:00* Test Item Value Reference Range Interpretation Comme nts CHOLESTEROL (test code = 2210) 152 MG/DL TRIGLYCERIDES (test code = 2232) 133 MG/DL HDL CHOLESTEROL (test code = 2220) 38 MG/DL CALC LDL CHOL (test code = 2237) 91 MG/DL RISK RATIO LDL/HDL (test cod e = 2238) 2.39 RATIO COMPREHENSIVE METABOLIC [id number] 00:00:00* Test Item Value Reference Range Interpretation Comme nts GLUCOSE (test code = 2217) 93 MG/DL BUN (test code = 2208) 9 MG/DL CREATININE (test code = 2214) 0.83 MG/DL eGFR (2020 CKD-EPI) (test co de = 28638) 98 ML/MIN/1.73 CALC BUN/CREAT (test code = 2235) 11 RATIO SODIUM (test code = 2231) 137 MEQ/L POTASSIUM (test code = 2228) 4.4 MEQ/L CHLORIDE (test code = 2215) 99 MEQ/L CARBON DIOXIDE (test code = 2206) 26 MEQ/L CALCIUM (test code = 2209) 9.9 MG/DL PROTEIN, TOTAL (test code = 2229) 8.7 G/DL ALBUMIN (test code = 2201) 4.5 G/DL CALC GLOBULIN (test code = 2240) 4.2 G/DL CALC A/G RATIO (test code = 2234) 1.1 RATIO BILIRUBIN, TOTAL (test code = 2207) 0.3 MG/DL ALKALINE PHOSPHATASE (test code = 2204) 87 U/L AST (test code = 2218) 11 U/L ALT (test code = 2219) 6 U/L LIPID [id number] 00:00:00* Test Item Value Reference Range Interpretation Comme nts CHOLESTEROL (test code = 2210) 152 MG/DL TRIGLYCERIDES (test code = 2232) 133 MG/DL HDL CHOLESTEROL (test code = 2220) 38 MG/DL CALC LDL CHOL (test code = 2237) 91 MG/DL RISK RATIO LDL/HDL (test cod e = 2238) 2.39 RATIO COMPREHENSIVE METABOLIC [id number] 00:00:00* Test Item Value Reference Range Interpretation Comme nts GLUCOSE (test code = 2217) 93 MG/DL BUN (test code = 2208) 9 MG/DL CREATININE (test code = 2214) 0.83 MG/DL eGFR (2020 CKD-EPI) (test co de = 72750) 98 ML/MIN/1.73 CALC BUN/CREAT (test code = 2235) 11 RATIO SODIUM (test code = 2231) 137 MEQ/L POTASSIUM (test code = 2228) 4.4 MEQ/L CHLORIDE (test code = 2215) 99 MEQ/L CARBON DIOXIDE (test code = 2206) 26 MEQ/L CALCIUM (test code = 2209) 9.9 MG/DL PROTEIN, TOTAL (test code = 2229) 8.7 G/DL ALBUMIN (test code = 2201) 4.5 G/DL CALC GLOBULIN (test code = 2240) 4.2 G/DL CALC A/G RATIO (test code = 2234) 1.1 RATIO BILIRUBIN, TOTAL (test code = 2207) 0.3 MG/DL ALKALINE PHOSPHATASE (test code = 2204) 87 U/L AST (test code = 2218) 11 U/L ALT (test code = 2219) 6 U/L COMPREHENSIVE METABOLIC [id number] 00:00:00* Test Item Value Reference Range Interpretation Comme nts GLUCOSE (test code = 2217) 93 MG/DL BUN (test code = 2208) 9 MG/DL CREATININE (test code = 2214) 0.83 MG/DL eGFR (2020 CKD-EPI) (test co de = 51849) 98 ML/MIN/1.73 CALC BUN/CREAT (test code = 2235) 11 RATIO SODIUM (test code = 2231) 137 MEQ/L POTASSIUM (test code = 2228) 4.4 MEQ/L CHLORIDE (test code = 2215) 99 MEQ/L CARBON DIOXIDE (test code = 2206) 26 MEQ/L CALCIUM (test code = 2209) 9.9 MG/DL PROTEIN, TOTAL (test code = 2229) 8.7 G/DL ALBUMIN (test code = 2201) 4.5 G/DL CALC GLOBULIN (test code = 2240) 4.2 G/DL CALC A/G RATIO (test code = 2234) 1.1 RATIO BILIRUBIN, TOTAL (test code = 2207) 0.3 MG/DL ALKALINE PHOSPHATASE (test code = 2204) 87 U/L AST (test code = 2218) 11 U/L ALT (test code = 2219) 6 U/L Umesh F AustinLIPID [id number] 00:00:00* Test Item Value Reference Range Interpretation Comme nts CHOLESTEROL (test code = 2210) 152 MG/DL TRIGLYCERIDES (test code = 2232) 133 MG/DL HDL CHOLESTEROL (test code = 2220) 38 MG/DL CALC LDL CHOL (test code = 2237) 91 MG/DL RISK RATIO LDL/HDL (test cod e = 2238) 2.39 RATIO Umesh Priscila RhysCOMPREHENSIVE METABOLIC [id number] 00:00:00* Test Item Value Reference Range Interpretation Comme nts GLUCOSE (test code = 2217) 93 MG/DL BUN (test code = 2208) 9 MG/DL CREATININE (test code = 2214) 0.83 MG/DL eGFR (2020 CKD-EPI) (test co de = 39811) 98 ML/MIN/1.73 CALC BUN/CREAT (test code = 2235) 11 RATIO SODIUM (test code = 2231) 137 MEQ/L POTASSIUM (test code = 2228) 4.4 MEQ/L CHLORIDE (test code = 2215) 99 MEQ/L CARBON DIOXIDE (test code = 2206) 26 MEQ/L CALCIUM (test code = 2209) 9.9 MG/DL PROTEIN, TOTAL (test code = 2229) 8.7 G/DL ALBUMIN (test code = 2201) 4.5 G/DL CALC GLOBULIN (test code = 2240) 4.2 G/DL CALC A/G RATIO (test code = 2234) 1.1 RATIO BILIRUBIN, TOTAL (test code = 2207) 0.3 MG/DL ALKALINE PHOSPHATASE (test code = 2204) 87 U/L AST (test code = 2218) 11 U/L ALT (test code = 2219) 6 U/L Umesh Priscila RhysLIPID [id number] 00:00:00* Test Item Value Reference Range Interpretation Comme nts CHOLESTEROL (test code = 2210) 152 MG/DL TRIGLYCERIDES (test code = 2232) 133 MG/DL HDL CHOLESTEROL (test code = 2220) 38 MG/DL CALC LDL CHOL (test code = 2237) 91 MG/DL RISK RATIO LDL/HDL (test cod e = 2238) 2.39 RATIO Umesh Joiner Notes Date/Time Note Provider Source Umesh Tran [facility]2024-05-17 00:00:00 Umesh Tran [facility]
[2024-04-10] MEDS ORDERED: IBUPROFEN 200 MG TAB PO ONE (08:13)
[2024-04-10] MEDS ORDERED: IBUPROFEN 400 MG TAB ONE (08:13)
[2024-04-10 08:50] LABS: Influenza A Ag Negative; Influenza B Ag Negative; SARS-CoV-2 Antigen Rapid Res Negative (Negative)
--- NOTE | 2024-04-10 09:21 | EDPHYS ---
Physician Documentation [facility] Name: Monae Mccallum Age: 29 yrs Sex: Female : 1995 Arrival Date: 04/10/2024 Time: 07:45 Bed 11 Private MD: ED Physician Bernard Morris HPI: 04/10 09:27 This 29 yrs old Black Female presents to ER via Ambulatory with complaints of Flu ms3 Symptoms. 09:27 29-year-old female with past medical history of atrial septal defect, hypertension ms3 presents to the emergency department for headache, sore throat, sneezing, congestion that began on Wednesday. Patient endorses nausea and vomiting. She denies diarrhea. Patient states her body aches are rated 9/10.. 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 - Infectious Disease History:: Denies. - Social history:: Smoking status: Patient denies any tobacco usage or history of. ROS: 09:27 Constitutional: Negative for fever, and chills. Cardiovascular: Negative for chest ms3 pain, and palpitations. Respiratory: Negative for shortness of breath, cough, wheezing, and pleuritic chest pain, Abdomen/GI: Negative for abdominal pain, nausea, vomiting, diarrhea, and constipation, 09:27 MS/Extremity: Negative for injury and deformity, Skin: Negative for injury, rash, and discoloration, 09:27 ENT: Positive for sinus congestion, Exam: 09:27 Constitutional: This is a well developed, well nourished patient who is awake, alert, ms3 and in no acute distress. Cardiovascular: Regular rate and rhythm with a normal S1 and S2. No gallops, murmurs, or rubs. Normal PMI, no JVD. No pulse deficits. Respiratory: Lungs have equal breath sounds bilaterally, clear to auscultation and percussion. No rales, rhonchi or wheezes noted. No increased work of breathing, no retractions or nasal flaring. 09:27 ENT: Nares patent. No nasal discharge, no septal abnormalities noted. Tympanic membranes are normal and external auditory canals are clear. Oropharynx with no redness, swelling, or masses, exudates, or evidence of obstruction, uvula midline. Mucous membranes moist. Skin: Warm, dry with normal turgor. Normal color with no rashes, no lesions, and no evidence of cellulitis. Vital Signs: 07:54 BP 149 / 87; Pulse 92; Resp 18 S; Temp 98.2(O); Pulse Ox 96% on R/A; Weight 144.24 kg aa5 (R); Height 5 ft. 7 in. (R); Pain 9/10; 07:54 Body Mass Index 49.80 (144.24 kg, 170.18 cm) aa5 07:54 Pain Scale: Adult aa5 MDM: 08:07 Medical Screening Exam initiated ms3 09:27 Differential Diagnosis: Influenza Upper Respiratory Infection Viral Syndrome. Data ms3 reviewed: vital signs, nurses notes, lab test result(s), and as a result, I will discharge patient. I considered the following discharge prescriptions or medication management in the emergency department Medications were administered in the Emergency Department. See MAR. Counseling: I had a detailed discussion with the patient and/or guardian regarding the historical points, exam findings, and any diagnostic results supporting the discharge/admit diagnosis, lab results, the need for outpatient follow up, to return to the emergency department if symptoms worsen or persist or if there are any questions or concerns that arise at home. Special discussion: I discussed with the patient/guardian in detail that at this point there is no indication for admission to the hospital. It is understood, however, that if the symptoms persist or worsen the patient needs to return immediately for re-evaluation. ED course: Discussed labs with patient. Patient to follow-up with primary care physician 2 to 3 days. All questions were answered. Return precautions discussed include worsening symptoms, or any other concerns. On reevaluation patient is alert and orient x 4, in no apparent distress, nontoxic-appearing, speaking full sentences, ambulatory in emerge department. . 03/03 08:07 Order name: COVID-19 Ag + Flu A+B Ag; Complete Time: 09:13 ms3 Administered Medications: 08:19 Drug: Ibuprofen PO 600 mg PO once Route: PO; aa5 09:50 Follow up: Response: No adverse reaction aa5 Disposition Summary: 04/10/24 09:21 Discharge Ordered Notes: Location: Home ms3 Condition: Stable ms3 Diagnosis - Acute upper respiratory infection, unspecified ms3 - Nasal congestion ms3 Followup: ms3 - With: Fahad Arauz DO - When: 2 - 3 days - Reason: Recheck today's complaints Discharge Instructions: - Discharge Summary Sheet ms3 - Upper Respiratory Infection, Adult ms3 Forms: - Work release form aa5 - Medication Reconciliation Form ms3 - Antibiotic Education ms3 - Prescription Opioid Use ms3 - Patient Portal Instructions ms3 - Leadership Thank You Letter ms3 Prescriptions: - Claritin 10 mg Oral Tablet - take 1 tablet ORAL route once daily As needed; 30 tablet; Refills: 0, Product ms3 Selection Permitted Signatures: Dispatcher [employer] Cnonie Maciel, RN RN aa5 Bernard Morris DO DO ms3 Corrections: (The following items were deleted from the chart) 08:08 08:08 COVID-19 Ag + Flu A+B Ag+[id number].[id number] ordered. EDMS CASTAÑEDAMS
--- NOTE | 2024-04-10 09:21 | ER ---
Nurse's Notes [facility] Name: Monae Mccallum Age: 29 yrs Sex: Female : 1995 Arrival Date: 04/10/2024 Time: 07:45 Bed 11 Private MD: Diagnosis: Acute upper respiratory infection, unspecified;Nasal congestion Presentation: 04/10 07:54 Chief complaint: Patient states: sore throat, cough, headache, congestion, runny nose aa5 that began Wednesday. Pt also reports sneezing, denies cough. Coronavirus screen: congestion, cough unrelated to allergies, headache, sore throat. Ebola Screen: Patient denies travel to an Ebola-affected area in the 21 days before illness onset. Initial Sepsis Screen: Does the patient meet any 2 criteria? No. Patient's initial sepsis screen is negative. Does the patient have a suspected source of infection? No. Patient's initial sepsis screen is negative. Risk Assessment: Do you want to hurt yourself or someone else? Patient reports no desire to harm self or others. Onset of symptoms was April 08, 2024. 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 - Infectious Disease History:: Denies. - Social history:: Smoking status: Patient denies any tobacco usage or history of. Screenin:55 [facility] ED Fall Risk Assessment (Adult) History of falling in the last 3 months, aa5 including since admission No falls in past 3 months (0 pts) Confusion or Disorientation No (0 pts) Intoxicated or Sedated No (0 pts) Impaired Gait No (0 pts) Mobility Assist Device Used No (0 pt) Altered Elimination No (0 pt) Score/Fall Risk Level 0 - 2 = Low Risk Oriented to surroundings, Maintained a safe environment, Educated pt \T\ family on fall prevention, incl call for assistance when getting out of bed, Assessed \T\ reinforced patient's understanding of fall precautions. Abuse screen: Denies threats or abuse. Nutritional screening: No deficits noted. Tuberculosis screening: No symptoms or risk factors identified. Assessment: 07:55 General: Appears comfortable, Behavior is calm, cooperative. Pain: Complains of pain in aa5 head Pain currently is 8 out of 10 on a pain scale. Quality of pain is described as aching, Is continuous. Neuro: Level of Consciousness is awake, alert, obeys commands, Oriented to person, place, time, situation. Cardiovascular: Patient's skin is warm and dry. Respiratory: Airway is patent Respiratory effort is even, unlabored, Respiratory pattern is regular, symmetrical. GI: Abdomen is round. : No signs and/or symptoms were reported regarding the genitourinary system. EENT: Reports nasal congestion nasal discharge that is watery. Derm: Skin is dry, Skin is normal, Skin temperature is warm. Musculoskeletal: Range of motion: intact in all extremities. 09:50 Neuro: Level of Consciousness is awake, alert, obeys commands, Oriented to person, aa5 place, time, situation. Respiratory: Airway is patent Respiratory effort is even, unlabored, Respiratory pattern is regular, symmetrical. Derm: Skin is dry, Skin is normal, Skin temperature is warm. Vital Signs: 07:54 BP 149 / 87; Pulse 92; Resp 18 S; Temp 98.2(O); Pulse Ox 96% on R/A; Weight 144.24 kg aa5 (R); Height 5 ft. 7 in. (R); Pain 9/10; 07:54 Body Mass Index 49.80 (144.24 kg, 170.18 cm) aa5 07:54 Pain Scale: Adult aa5 ED Course: 07:50 Patient arrived in ED. cj3 07:55 Triage completed. aa5 07:55 Arm band placed on. aa5 07:55 Patient has correct armband on for positive identification. Bed in low position. Call aa5 light in reach. Side rails up X 1. 07:56 Connie Mcclendon, CARLEEN is Primary Nurse. aa5 07:59 Bernard Morris DO is Attending Physician. ms3 08:28 COVID-19 Ag + Flu A+B Ag Sent. rk3 09:20 Fahad Arauz DO is Referral Physician. ms3 09:50 No provider procedures requiring assistance completed. Patient did not have IV access aa5 during this emergency room visit. Administered Medications: 08:19 Drug: Ibuprofen PO 600 mg PO once Route: PO; aa5 :50 Follow up: Response: No adverse reaction aa5 Medication: :50 VIS not applicable for this client. aa5 Outcome: :21 Discharge ordered by . ms3 09:50 Discharged to home ambulatory, aa5 :50 Condition: stable :50 Discharge instructions given to patient, Instructed on discharge instructions, follow up and referral plans. medication usage, Demonstrated understanding of instructions, follow-up care, medications, Prescriptions given X 1, :51 Patient left the ED. aa5 Signatures: Connie Mcclendon RN RN aa5 Bernard Morris DO DO ms3 Gabriela Morrison rk3 Chhaya Sandra cj3 Corrections: (The following items were deleted from the chart) 07:56 07:54 BP 149 / 87; Pulse 92bpm; Resp 18bpm; Spontaneous; Pulse Ox 96% RA; Temp 98.2F aa5 Oral; 144.24 kg Reported; Height 5 ft. 7 in. Reported; BMI: 49.8; aa5 10:54 07:56 Arm band placed on aa5 aa5 10:54 10:54 VIS not applicable for this client. aa5 aa5
[2024-04-10 10:17] VITALS: BP 149/87; TEMP 98.2; O2SAT 96
== END 2024-04-10 09:51 | disposition home or self-care (01) ==
LOC: ER 07:45
DX: J06.9 Acute upper respiratory infection, unspecified (principal); Z11.52 Encounter for screening for COVID-19
CPT/HCPCS: 36415; 87428; 99283